=== PATIENT | female | born 1990 | race Caucasian/White ===

== ENCOUNTER 2024-08-18 19:05 | Emergency (ER) | payer OTHER, BC, SELFPAY ==
[2024-08-18 19:13] VITALS: BP 124/81; PULSE 95; RESP 16; TEMP 36.7; O2SAT 100; BMI 26.3
[2024-08-18 19:21] VITALS: BP 134/83; PULSE 95; RESP 20; O2SAT 97
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
[2024-08-18 20:06] VITALS: BP 118/74; PULSE 90; RESP 20; TEMP 36.7; O2SAT 97
[2024-08-18 20:07] VITALS: BP 118/74; PULSE 90; RESP 20; TEMP 36.7
[2024-08-18 20:11] VITALS: O2SAT 97
--- OUTSIDE RECORDS SUMMARY | 2024-08-18 20:26 | XMS_ITS | Encounter Summary ---
Author Organization [place] Address [address] [facility] [place] [address] Care Team Providers Care Wet And Dry Sugar Bin Operator Name Role Phone [facility], [facility] Primary Care Provider Shamar Pacheco MD Unavailable Kellen Duran RD Unavailable [phone] Unavailable Unavailable Fiona Conrad Unavailable Clinic - [facility] Unavailable Atif Garcia MD Unavailable [phone] Dina Perez PA-C Unavailable Tiffani Farmer MD Unavailable [phone] Cydney Olivarez Unavailable [phone] Reason for Visit * Reason Onset Date Comments Diabetes Mellitus 04/02/2023 Encounter Details Date Type Department Care Team (Late st Contact Info) Description 04/02/2023 MyC Medical Advice [facility] Diabetes Education [address] [place] [address] Fiona Conrad [address] [place] [address] Diabetes Mellitus Social History Tobacco Use Types Packs/Day Years Used Date Smoking Tobacco: Never Smokeless Tobacco: Never Alcohol Use Standard Drinks/Week Comments Not Currently 0 (1 standard drink = 0.6 oz pur e alcohol) PHQ-2 Answer Date Recorded PHQ-2 Score 0 10/01/2022 Adolescent Education Answer Date Record ed Getting School Help Needed Not on file 03/16 Education Answer Date Recorded What is the highest level of school you have completed or the highest degree you have received? 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 No / Unsure 04/02/2023 3:41 PM CDT documented as of this encounter Miscellaneous Notes * Telephone Encounter - Kellen Duran RD - 04/02/2023 3:45 PM CDT Images from the original note were not included. Gestational Diabetes Follow-up Subjective/Objective: Holly Oliva sent in blood glucose log for review. Last date of communication was: 03/27. Gestational diabetes is being managed with diet, activity, and medications Taking diabetes medications: yes: Diabetes Medication(s) Biguanides metFORMIN (GLUCOPHAGE) 500 MG tablet Take 1 tablet (500 mg) by mouth 2 times daily (with meals) metFORMIN (GLUCOPHAGE) 500 MG tablet Take 500 mg by mouth twice daily (breakfast and dinner) Insulin insulin aspart (NOVOLOG FLEXPEN) 100 UNIT/ML pen Inject 9 Units Subcutaneous 3 times daily (with meals) Dose increase for next refill. insulin detemir (LEVEMIR PEN) 100 UNIT/ML pen Inject 26 Units Subcutaneous At Bedtime Dose increase for next fill. Estimated Date of Delivery: May 01, 2023 BG/Food Log: Assessment: BG above goals needs insulin adjustments. Fasting blood glucoses: 33% in target. After breakfast: 0% in target. After lunch: 0% in target-only 2 recorded After dinner: 20% in target. Plan/Response: Recommend increase to insulin - -Levemir: 0-0-0-26 ---> 0-0-0-29 -Novolo-9-9-0 ---> 11-11-11-0- will request MD approval for this since 20% dose increase Follow-up in [address], LD, CDCES Any diabetes medication dose changes were made via the CDE Protocol and Collaborative Practice Agreement with the patient's TACKER [employer] provider. A copy of this encounter was shared with the provider. documented in this encounter Plan of Treatment Upcoming Encounters Date Type Department Care Team (Late st Contact Info) Description 08/21/2024 10:00 AM PRE ASSEMBLY WIRER Virtual Visit [facility] Diabetes Education [address] [phone] Flor Joseph [address] [place] [phone] 09/08/2024 2:[address] [facility] Maternal Medicine [facility] [address] [place] [phone] Kenya Keating MD [address] [place], [place] [phone] 09/08/2024 2:45 PM CDT Office Visit [facility] [address] [place] [phone] Kenya Keating MD [address] [place], [place] [phone] 09/16/2024 3:30 PM CDT Office Visit [facility] [place] [address] [place] [address] [place] [phone] Shamar Pacheco MD [address] [place] [address] 09/17/2024 2:30 PM CDT Virtual Visit [facility] Endocr[facility]ology [facility] [address] [phone] Renée Alanis PA-C [address] [place] [address] 09/22/2024 2:00 PM CDT Appointment [facility] [address] [place] [phone] Kenya Keating MD [address] [place] [address] [address] [place] [address] 10/13/2024 3:30 PM CDT Office Visit [address] [phone] Shamar Pacheco MD [address] [place] [address] 10/16/2024 2:30 PM CDT Virtual Visit [facility] [address] [phone] Renée Alanis PA-C [address] [place] [address] 11/10/2024 3:45 PM CDT Office Visit [address] [phone] Shamar Pacheco MD [address] [place] [address] 11/19/2024 2:30 PM CDT Virtual Visit [facility] [address] [phone] Renée Alanis PA-C [address] [facility] [address] [place] [address] 12/17/2024 2:30 PM CDT Virtual Visit [facility] [address] [phone] Renée Alanis PA-C [address] [facility] [address] [place] [address] 01/07/2025 1:30 PM CDT Virtual Visit [facility] Endocrinology [address] [phone] Renée Alanis PA-C [address] [place] [address] 01/11/2025 7:30 AM CDT Hospital Encounter [facility] [address] [place] [address] Shamar Pacheco MD [address] [place] [address] Modified White class B pregestational diabetes mellitus (Primary Dx); Multigravida of advanced maternal age in first trimester; Previous delivery, antepartum condition or complication 01/11/2025 7:30 AM CDT - 01/11/2025 9:00 AM CDT Surgery [facility] [address] [place] [address] Shamar Pacheco MD [address] [place] [address] REPEAT SECTION Scheduled Procedures Name Priority Associated Diagnoses Date/Ti me SECTION Modified White class B pregestational diabetes mellitus Multigravida of advanced maternal age in first trimester Previous delivery, antepartum condition or complication 01/11/2025 7:30 AM CDT documented as of this encounter Visit Diagnoses Diagnosis Type 2 diabetes mellitus without complication, without long-term current use of insulin (H) Supervision of high risk in second trimester Unspecified high-risk Modified White class B pregestational diabetes mellitus- Primary Multigravida of advanced maternal age in first trimester Previous delivery, antepartum condition or complication Multigravida of advanced maternal age in first trimester- Primary Modified White class B pregestational diabetes mellitus Previous delivery, antepartum condition or complication AMA (advanced maternal age) multigravida 35+ Elderly multigravida with antepartum condition or complication Multigravida of advanced maternal age in first trimester- Primary Modified White class B pregestational diabetes mellitus Previous delivery, antepartum condition or complication Multigravida of advanced maternal age in first trimester- Primary Modified White class B pregestational diabetes mellitus Previous delivery, antepartum condition or complication Multigravida of advanced maternal age in first trimester- Primary Modified White class B pregestational diabetes mellitus Previous delivery, antepartum condition or complication Modified White class B pregestational diabetes mellitus Multigravida of advanced maternal age in first trimester Previous delivery, antepartum condition or complication documented in this encounter Additional Health Concerns Assessment Noted Time PHQ-9 Depression Total Score: 0 02/28/20 22 2:15 PM CDT documented as of this encounter Care Teams Wet And Dry Sugar Bin Operator Relationship Specialty Start Date End Date [facility], [address] [address] PCP - General 03/22/17 Shamar Pacheco MD [address] [place] [address] Assigned OBGYN Provider 10/09/[address] [address] Endless Bed Drum Sander Dietitian, Registered 10/16/[address] [facility] [address] [place] [address] Endless Bed Drum Sander Dietitian, Registered 11/02/21 Fiona Conrad [address] [place] [address] Endless Bed Drum Sander Dietitian, Registered 01/23/23 [facility] [address] [place] [address] Assigned PCP 07/18/23 03/15/24 Atif Garcia MD [address] [facility] [address] [place] [address] crime prevention police officer 05/01/24 Dina Perez PA-C [address] [place], [place] [address] Physician Hammer Heater Endocrinology, Diabetes, and Metabolism 06/02/24 Tiffani Farmer MD 420 [facility] [address] [place], [place] [address] Assigned Endocrinology Provider 06/15/24 Cydney Olivarez CHW Community Health Worker 08/13/2408/14 documented as of this encounter
--- OUTSIDE RECORDS SUMMARY | 2024-08-18 20:27 | XMS_ITS | Encounter Summary ---
Author Organization [place] Address [address] [facility] [place] [address] Care Team Providers Care Iron Worker Name Role Phone [facility] Primary Care Provider Shamar Pacheco MD Unavailable Kellen Duran RD Unavailable [phone] Unavailable Unavailable Fiona Conrad Unavailable [facility] Unavailable Atif Garcia MD Unavailable [phone] Dina Perez PA-C Unavailable Tiffani Farmer MD Unavailable [phone] Cydney Olivarez Unavailable [phone] Encounter Details Date Type Department Care Team (Late st Contact Info) Description 09/28/2022 MyC Medical Advice [facility] [address] [place] [address] Verenice Yen, RN Social History Tobacco Use Types Packs/Day Years Used Date Smoking Tobacco: Never Smokeless Tobacco: Never Alcohol Use Standard Drinks/Week Comments Not Currently 0 (1 standard drink = 0.6 oz pur e alcohol) PHQ-2 Answer Date Recorded PHQ-2 Score 0 10/01/2022 Education Answer Date Recorded What is the highest level of school you have completed or the highest degree you have received? Some college, no degree 05/30/2021 Comments Yes Sex and Gender Information Value Date Recorded Sex Assigned at Not on file Legal Sex Female 3:17 AM HOME AID Gender Identity Not on file Sexual Orientation [...] suspected to have Coronavirus/COVID-19? No / Unsure 09/17/2022 10:12 AM CDT documented as of this encounter Plan of Treatment Upcoming Encounters Date Type Department Care Team (Late st Contact Info) Description 08/21/2024 10:00 AM HOME AID Virtual Visit [facility] Diabetes Education [address] [place] [phone] Flor Joseph [address] [place] [address] 09/08/2024 2:15 PM CDT Appointment [facility] [place] [address] [place] [phone] Kenya Keating MD [address] [place] [address] [place] [address] 09/08/2024 2:45 PM CDT Office Visit [facility] [place] [address] [place] [phone] Kenya Keating MD [address] [place], [place] [address] 09/16/2024 3:30 PM CDT Office Visit [facility] [place] [address] [place] [phone] Shamar Pacheco MD [address] [place] [address] 09/17/2024 2:30 PM CDT Virtual Visit [facility] End[facility]ology [facility] [place] [address] [phone] Renée Alanis PA-C [address] [place] [address] 09/22/2024 2:00 PM CDT Appointment [facility] [address] [place] [phone] Kenya Keating MD [address] [place] [address] [address] [place] [address] 10/13/2024 3:30 PM CDT Office Visit [address] [phone] Shamar Pacheco MD [address] [place] [address] 10/16/2024 2:30 PM CDT Virtual Visit [facility] Endocrinology [address] [phone] Renée Alanis PA-C [address] [place] [address] 11/10/2024 3:45 PM CDT Office Visit [address] [phone] Shamar Pacheco MD [address] [place] [address] 11/19/2024 2:30 PM CDT Virtual Visit [facility] [address] [place] [phone] Renée Alanis PA-C 420 [facility] [address] [place] [address] 12/17/2024 2:30 PM CDT Virtual Visit [facility] [place] [address] [place] [address] [address] [place] [phone] Renée Alanis PA-C 420 [facility] [address] [place] [address] 01/07/2025 1:30 PM CDT Virtual Visit [facility] [address] [phone] Renée Alanis PA-C [address] [address] 01/11/2025 7:30 AM CDT Hospital Encounter [facility] [address] [place] [address] Shamar Pacheco MD [address] [place] [address] Modified White class B pregestational diabetes mellitus (Primary Dx); Multigravida of advanced maternal age in first trimester; Previous delivery, antepartum condition or complication 01/11/2025 7:30 AM CDT - 01/11/2025 9:00 AM CDT Surgery [facility] [address] [place] [address] Shamar Pacheco MD [address] [place] [address] REPEAT SECTION Scheduled Procedures Name Priority Associated Diagnoses Date/Ti me SECTION Modified White class B pregestational diabetes mellitus Multigravida of advanced maternal age in first trimester Previous delivery, antepartum condition or complication 01/11/2025 7:30 AM CDT documented as of this encounter Visit Diagnoses Not on filedocumented in this encounter Additional Health Concerns Assessment Noted Time PHQ-9 Depression Total Score: 0 02/28/20 2:15 PM CDT documented as of this encounter Care Teams Iron Worker Relationship Specialty Start Date End Date [facility] [address] [place] [address] PCP - General 03/22/17 Shamar Pacheco MD [address] [place] [address] Assigned OBGYN Provider 10/09/[address] [address] Census Taker Dietitian, Registered 10/16/[address] [address] Census Taker Dietitian, Registered 11/02/21 Fiona Conrad [address] [place] [address] Census Taker Dietitian, Registered 01/23/23 [facility] [address] [address] Assigned PCP 07/18/23 03/15/24 Atif Garcia MD [address] [address] fine arts instructor 05/01/24 Dina Perez PA-C [address] [place] [address] Physician Community Outreach Worker Endocrinology, Diabetes, and Metabolism 06/02/24 Tiffani Farmer MD [address] [place] [address] [address] [place] [address] Assigned Endocrinology Provider 06/15/24 Cydney Olivarez CHW Community Health Worker 08/13/2408/14 documented as of this encounter
--- OUTSIDE RECORDS SUMMARY | 2024-08-18 20:27 | XMS_ITS | Clinical Summary ---
Author Organization [employer] Address [facility] [place] [address] Care Team Providers Care Creative Producer Name Role Phone Danilo Joseph DO Primary Care Provider [phone] Allergies Active Allergy Reactions Criticality Noted Date Comments Venom-Honey Bee Angioedema 06/10/2014 Medications diabetic supplies, miscellan.Indic ations:Diet-con trolled type 2 diabetes mellitus (HC) Dispense glucose meter, test strips and lancets covered by patient insurance. Test 3 times per day. 1 Kit 04/08/2017 Active metFORMIN (GLUCOPHAGE) 500 mg tabletIndicatio ns:Controlled type 2 diabetes mellitus without complication, without long-term current use of insulin (HC) Take 1 Tablet (500 mg) by mouth 2 times daily with meals. 180 tablet. 1 08/17/2021 Active lancetsIndicati ons:Type 2 diabetes mellitus without complication, without long-term current use of insulin (HC) Use as directed 100 Each 5 08/17/2021 Active blood sugar diagnostic (OneTouch Verio test strips) stripIndication s:Type 2 diabetes mellitus without complication, without long-term current use of insulin (HC) As directed. 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 Age 28. Plan: routine screening, next Pap due 07/2022 Immunizations Name Administration Dates Next Due DT (Age < 7 years) 01/25/2003 HPV 9 (Gardasil 9) 08/27/2016,01/11/2016, 016 Hepatitis B (Peds) 02/15/2004,03/30/2003, 003 MMR 01/25/2003 Tdap 08/17/2019,01/22/2009 Family History Medical History Relation Name Comments Good Health Father Asthma Maternal Grandmother Diabetes Maternal Grandmother Heart Disease Maternal Grandmother quadru ple bypass Other Maternal Grandmother emphyse ma Psychiatric illness Maternal Grandmother depression Stroke Maternal Grandmother multipl e Good Health Mother Relation Name Status Comments Father Maternal Grandmother Mother Social History Tobacco Use Types Packs/Day Years Used Date Smoking Tobacco: Never Smokeless Tobacco: Never Alcohol Use Standard Drinks/Week Comments Yes 0 (1 standard drink = 0.6 oz pur e alcohol) 3-4 times a month PHQ-2 Answer Date Recorded PHQ-2 Score 0 08/17/2019 Social Connections Answer Date Recorded Frequency of Communication with Friends and Fami ly Not on file 06/14/2021 Financial Resource Strain Answer Date R ecorded Difficulty of Paying Living Expenses Not on file 06/14/2021 Difficulty of Paying Living Expenses Not on file 06/14/2021 Comments No Sex and Gender Information Value Date Recorded Sex Assigned at Not on file Legal Sex Female 8:28 AM TROPHY ASSEMBLER Gender Identity Not on file Sexual Orientation Not on file 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 Not on file Not on file Obstetrics History Para Term AB IAB SAB Ectopic Multiple Livin g Live Births 1 0 0 0 0 0 0 0 Date Outcome GA Total Labor Labor/2nd/3rd Weight Sex Type Anes PTL Krysten A1 A5 Name Clin Last Filed Vital Signs Vital Sign Reading Time Taken Comments Blood Pressure 104/70 12/06/2020 12:24 PM CDT Pulse 92 12/06/2020 12:24 PM CDT Temperature 36 C (96.8 F) 03/22/2017 11:06 AM CDT Respiratory Rate 12 12/14/2015 4:37 PM CDT Oxygen Saturation 100% 12/14/2015 4:37 PM CDT Inhaled Oxygen Concentration - - Weight 80.7 kg (178 lb) 12/06/2020 12:24 PM CDT Height 175.3 cm (5' 9) 07/05/2020 4:17 PM TROPHY ASSEMBLER Body Mass Index 26.29 07/05/2020 4:17 PM TROPHY ASSEMBLER Plan of Treatment Health Maintenance Due Date Last Done Comments HIV for age 15-65 2004 Hepatitis C screening for age 18-79 10/27/2007 Depression screening for age 12+ 08/18/2020 08/18/2019, 08/18/2019, 08/17/2019, Additional history exists BMI (ht and wt on same day) for age 18+ 07/05/2021 07/05/2020, 08/17/2019, 04/01/2018, Additional history exists Pap test for age 21-65 08/17/2022 , 08/17/2019, 08/27/2016, Additional history exists COVID-19 vaccine series (2023- season) 2024 Influenza for age 9-49 02/23/2024 Tetanus booster 08/17/2029 08/17/2019, 08/0 06/2008, 01/22/2009 Tdap Completed 08/17/2019, 01/22/2009 Pneumococcal series for age 6-49 Aged Out No longer eligible based on patient's age to complete this topic Procedures Procedure Name Priority Date/Time Associated Diagnosis Comments SUPERVISOR RUBBER COVERING THIN PREP PAP SCREEN IMAGED Routine 08/17/2019 10:45 AM TROPHY ASSEMBLER Pap smear for cervical cancer screening from Last 3 Months or Most Recently Relevant to Health Maintenance Results * SUPERVISOR RUBBER COVERING THIN PREP PAP SCREEN IMAGED (08/17/2019 10:45 AM TROPHY ASSEMBLER) Case Report Gynecologic Cytology Report Case: [id number] Authorizing Provider: Meche Herrera CNM Collected: 08/17/2019 1045 Ordering Location: [facility] Received: 08/17/2019 1132 Clinic First Screen: Jesika Resendiz Rescreen: Teresa Sheth Specimen: SUPERVISOR RUBBER COVERING ThinPrep Vial Screening, Cervical 08/26/2019 7:56 AM TROPHY ASSEMBLER [facility] INTERPRETATION/ RESULT NEGATIVE FOR INTRAEPITHELIAL LESION OR MALIGNANCY (NIL) (none) 08/26/2019 7:56 AM TROPHY ASSEMBLER [facility] NISM(S) Shift in sheila suggestive of bacterial vaginosis 08/26/2019 7:56 AM TROPHY ASSEMBLER [facility] SPECIMEN ADEQUACY Satisfactory for evaluation Endocervical component present 08/26/2019 7:56 AM TROPHY ASSEMBLER [facility] HPV REQUEST HPV if ASCUS 08/26/2019 7:56 AM TROPHY ASSEMBLER [facility] Date of LMP 07/28/2019 08/26/2019 7:56 AM TROPHY ASSEMBLER [facility] Last Pap Date 08/27/16 08/26/2019 7:56 AM TROPHY ASSEMBLER [facility] Last Pap Result ASCUS 0 7:56 AM TROPHY ASSEMBLER [facility] Abnormal Pap or [place] Bx in last 5 years No 08/26/2019 7:56 AM TROPHY ASSEMBLER [facility] Menstrual Status Regular Periods 08/26/2019 7:56 AM TROPHY ASSEMBLER [facility] [place] Bx Done Today No 08/26/2019 7:56 AM TROPHY ASSEMBLER [facility] ENTRAL LABORATORY Additional Information None given 08/26/2019 7:56 AM TROPHY ASSEMBLER [facility] Comment: Cytology is screened at [facility] [employer], Central Laboratory - [address], [place] [address] and [facility] - [address], [place] [address] and [facility] - [address] [place] [address] Interpreted at [facility] [employer], Central Laboratory - [address], [place] [address] Automated Review Successful 08/26/2019 7:56 AM TROPHY ASSEMBLER [facility] Comment:Specimen processed s uccessfully by automated project superintendent device, ThinPrep Imaging System, [employer] Note The pap test is a screening technique, not a diagnostic procedure. It is used primarily to screen for squamous cancers and precursor lesions. Published studies have shown that it is subject to both false negative and false positive results. The pap test should not be used as the sole means to diagnose or exclude pre-malignant and malignant lesions. 08/26/2019 7:56 AM TROPHY ASSEMBLER [facility] Other (Cervical) Non-Blood / Unknown 08/17/2019 10:45 AM TROPHY ASSEMBLER 08/17/2019 11:32 AM TROPHY ASSEMBLER Meche Herrera CN PATHOLOGY/CYTOLOGY Final Resu lt [facility]-CENTRAL LABORATORY [address] [place] [address], from Last 3 Months or Most Recently Relevant to Health Maintenance Insurance [facility] NON-NH-[facility] [place] [address] Care Teams Creative Producer Relationship Specialty Start Date End Date Danilo Joseph DO PCP - General Family Practice 04/22/20
--- OUTSIDE RECORDS SUMMARY | 2024-08-18 20:27 | XMS_ITS | Encounter Summary ---
Author Organization [place] Address [address] [place] [address] Care Team Providers Care Purification Operator Helper Name Role Phone [facility], [facility] Primary Care Provider Shamar Pacheco MD Unavailable Kellen Duran RD Unavailable [phone] Unavailable Unavailable Fiona Conrad Unavailable [phone] [facility] - [facility] Unavailable Atif Garcia MD Unavailable [phone] Dina Perez PA-C Unavailable Tiffani Farmer MD Unavailable [phone] Cydney Olivarez Unavailable [phone] Encounter Details Date Type Department Care Team (Late st Contact Info) Description 09/06/2022 MyC Medical Advice [facility]'s [facility] [address] [place] [address] Shamar Pacheco MD [address] [place] [address] Social History Tobacco Use Types Packs/Day Years Used Date Smoking Tobacco: Never Smokeless Tobacco: Never Alcohol Use Standard Drinks/Week Comments Not Currently 0 (1 standard drink = 0.6 oz pur e alcohol) PHQ-2 Answer Date Recorded PHQ-2 Score 0 02/27/2022 Education Answer Date Recorded What is the highest level of school you have completed or the highest degree you have received? Some college, no degree 05/30/2021 Comments No Sex and Gender Information Value Date Recorded Sex Assigned at Not on file Legal Sex Female 3:17 AM GROUND SCHOOL INSTRUCTOR Gender Identity Not on file Sexual Orientation [...] suspected to have Coronavirus/COVID-19? No / Unsure 09/07/2022 2:43 PM CDT documented as of this encounter Plan of Treatment Upcoming Encounters Date Type Department Care Team (Late st Contact Info) Description 08/21/2024 10:00 AM GROUND SCHOOL INSTRUCTOR Virtual Visit [facility] Diabetes Education [address] [place] [address] Flor Joseph [address] [place] [address] 09/08/2024 2:15 PM CDT Appointment [facility] [address] [facility] [address] [place] [phone] Kenya Keating MD [address] [address] [address] 09/08/2024 2:45 PM CDT Office Visit [facility] [address] [facility] [address] [place] [phone] Kenya Keating MD [address] [place] [address] [place] [address]66344 09/16/2024 3:30 PM CDT [facility] [address] [place] [address] [place] [phone] Shamar Pacheco MD [address] [place] [address] 09/17/2024 2:30 PM CDT Virtual Visit [facility] Endocrinology [address] [place] [phone] Renée Alanis PA-C [address] [place] [address] 09/22/2024 2:00 PM CDT Appointment [facility] Children[facility] Heart Care [address] [place] [phone] Kenya Keating MD [address] [place] [address] [phone] 10/13/2024 3:30 PM CDT Office Visit [facility] [address] [place] [address] [phone] Shamar Pacheco MD [address] [place] [address] 10/16/2024 2:30 PM CDT Virtual Visit [facility] Endocrinology [address] [phone] Renée Alanis PA-C [address] [place] [address] 11/10/2024 3:45 PM CDT Office Visit [facility] [address] [place] [address] [place] [phone] Shamar Pacheco MD [address] [facility] [place] [address] 11/19/2024 2:30 PM CDT Virtual Visit [facility] End[facility]inology Clinic [address] [phone] Renée Alanis PA-C [address] [address] 12/17/2024 2:30 PM CDT Virtual Visit [facility] Endocrinology [address] [phone] Renée Alanis PA-C [address] [address] 01/07/2025 1:30 PM CDT Virtual Visit [facility] Endocrinology [address] [phone] Renée Alanis PA-C [address] [address] 01/11/2025 7:30 AM CDT Hospital Encounter [facility] [address] [place] [phone] Shamar Pacheco MD [address] [place] [address] Modified White class B pregestational diabetes mellitus (Primary Dx); Multigravida of advanced maternal age in first trimester; Previous delivery, antepartum condition or complication 01/11/2025 7:30 AM CDT - 01/11/2025 9:00 AM CDT Surgery [facility] [address] [place] [phone] Shamar Pacheco MD [address] [place] [address] REPEAT SECTION Scheduled Procedures Name Priority Associated [...] documented as of this encounter Care Teams Purification Operator Helper Relationship Specialty Start Date End Date [facility], [address] [place] [address] [address] PCP - General 03/22/17 Shamar Pacheco MD [address] [place] [address] Assigned OBGYN Provider 10/09/[address] [address] Medication Specialist Dietitian, Registered 10/16/[address] [address] Medication Specialist Dietitian, Registered 11/02/21 Fiona Conrad [address] [place] [address] Medication Specialist Dietitian, Registered 01/23/23 Clinic - [facility] Garrido [address] [address] Assigned PCP 07/18/23 03/15/24 Atif Garcia MD [address] [facility] [address] [place] [address] art supervisor 05/01/24 Dina Perez PA-C [address] [place], [place] [phone] Physician Truck Spotter Endocrinology, Diabetes, and Metabolism 06/02/24 Tiffani Farmer MD [address] [facility] [address] [place] [address] Assigned Endocrinology Provider 06/15/24 Cydney Olivarez CHW Community Health Worker 08/13/2408/14 documented as of this encounter
--- OUTSIDE RECORDS SUMMARY | 2024-08-18 20:27 | XMS_ITS | Encounter Summary ---
Author Organization [place] Address [address] [facility] [place] [address] Care Team Providers Care Conference Services Manager Name Role Phone [facility] Primary Care Provider Shamar Pacheco MD Unavailable [phone] Unavailable Unavailab Kellen Ca RD Unavailable [phone] Unavailable Unavailable Fiona Conrad Unavailable [facility] Unavailable Atif Garcia MD Unavailable [phone] Dina Perez PA-C Unavailable Tiffani Farmer MD Unavailable [phone] Cydney Olivarez Unavailable [phone] Encounter Details Date Type Department Care Team (Late st Contact Info) Description 05/20/2021 MyC Medical Advice [facility] Women's [facility] [address] [place] [address] Shamar Pacheco MD [address] [place] [address] Early stage of (Primary Dx) Social History Tobacco Use Types Packs/Day Years Used Date Smoking Tobacco: Never Smokeless Tobacco: Never Alcohol Use Standard Drinks/Week Comments Yes 0 (1 standard drink = 0.6 oz pur e alcohol) Comments No Sex and Gender Information Value Date Recorded Sex Assigned at Not on file Legal Sex Female 3:17 AM MANAGER GROUP Gender Identity Not on file Sexual Orientation Not on file 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 No / Unsure 05/23/2021 1:34 PM MANAGER GROUP documented as of this encounter Plan of Treatment Upcoming Encounters Date Type Department Care Team (Late st Contact Info) Description 08/21/2024 10:00 AM MANAGER GROUP Virtual Visit [facility] Diabetes Education [address] [place] [address] Flor Joseph [address] [place] [address] 09/08/2024 2:15 PM CDT Appointment [facility] [place] [address] [place] [phone] Kenya Keating MD [address] [place], [place] [phone] 09/08/2024 2:45 PM CDT Office Visit [facility] [place] [address] [place] [phone] Kenya Keating MD [address] [place] [address] [place], [place] [phone] 09/16/2024 3:30 PM CDT Office Visit [facility] [place] [address] [place] [phone] Shamar Pacheco MD [address] [place] [address] 09/17/2024 2:30 PM CDT Virtual Visit [facility] Endocrinology Clinic [address] [place] [phone] Renée Alanis PA-C [address] [place] [address] [place] [address] 09/22/2024 2:00 PM CDT Appointment [facility] Heart Care [address] [place] [phone] Kenya Keating MD [address] [place] [address] [address] [place] [address] 10/13/2024 3:30 PM CDT Office Visit [address] [phone] Shamar Pacheco MD [address] [place] [address] 10/16/2024 2:30 PM CDT Virtual Visit [facility] Endocrinology [address] [phone] Renée Alanis PA-C [address] [place] [address] 11/10/2024 3:45 PM CDT Office Visit [facility] [address] [facility] [address] [place] [phone] Shamar Pacheco MD [address] [place] [address] 11/19/2024 2:30 PM CDT Virtual Visit [facility] Endocrinology Clinic [address] [phone] Renée Alanis PA-C [address] [address] 12/17/2024 2:30 PM CDT Virtual Visit [facility] Endocrinology Clinic [address] [place] [phone] Renée Alanis PA-C [address] [address] 01/07/2025 1:30 PM CDT Virtual Visit [facility] Endocrinology [address] [phone] Renée Alanis PA-C [address] [address] 01/11/2025 7:30 AM CDT Hospital Encounter [facility] [address] [place] [address] Shamar Pacheco MD [address] [place] [address] Modified White class B pregestational diabetes mellitus (Primary Dx); Multigravida of advanced maternal age in first trimester; Previous delivery, antepartum condition or complication 01/11/2025 7:30 AM CDT - 01/11/2025 9:00 AM CDT Surgery [facility] [address] [place] [address] Shamar Pacheco MD [address] [place] [address] REPEAT SECTION Scheduled Procedures Name Priority Associated Diagnoses Date/Ti me SECTION Modified White class B pregestational diabetes mellitus Multigravida of advanced maternal age in first trimester Previous delivery, antepartum condition or complication 01/11/2025 7:30 AM CDT documented as of this encounter Results * (ABNORMAL) HCG quantitative (05/23/2021 1:38 PM MANAGER GROUP) hCG Quantitative 11,371(H) 0 - 5 IU/L 05/24/2021 1:32 PM MANAGER GROUP OX LABORATORY Comment: Adult: 0-5 IU/L for healthy non- person Neonates: Should be within normal ranges by 2 days after Blood STRUCTURE OF RIGHT UPPER LIMB / Unknown Venipuncture / Unknown 05/23/2021 1:38 PM MANAGER GROUP 05/23/2021 1:38 PM MANAGER GROUP us Shamar Pacheco MD LAB - BLOOD ORDERABLES Final Result [facility] [address] Lab (no room number, 1st floor of clinic) [place] [address], [facility] [phone] documented in this encounter Visit Diagnoses Diagnosis Early stage of - Primary Modified White class B pregestational diabetes mellitus- [...] condition or complication documented in this encounter Care Teams Conference Services Manager Relationship Specialty Start Date End Date [facility], [address] [place] [address] [place] [address] PCP - General 03/22/17 Shamar Pacheco MD [address] [place] [address] Assigned OBGYN Provider 10/09/[address] [facility] [place] [address] Automotive Welder Dietitian, Registered 10/16/21 11/01/[address] [address] Automotive Welder Dietitian, Registered 10/16/[address] [address] Automotive Welder Dietitian, Registered 11/02/21 Fiona Conrad [address] [place] [address] Automotive Welder Dietitian, Registered 01/23/23 [facility] [address] [address] Assigned PCP 07/18/23 03/15/24 Atif Garcia MD [address] [address] soil surveyor 05/01/24 Dina Perez PA-C [address] [place] [address] Physician Canvassing Manager Endocrinology, Diabetes, and Metabolism 06/02/24 Tiffani Farmer MD [address] [place] [address] Assigned Endocrinology Provider 06/15/24 Cydney Olivarez, [facility] Community Health Worker 08/13/2408/14 documented as of this encounter
--- OUTSIDE RECORDS SUMMARY | 2024-08-18 20:27 | XMS_ITS | Encounter Summary ---
Author Organization [place] Address [facility]0 [facility] [place] [address] Care Team Providers Care Mortgage Lender Name Role Phone [facility], [facility] Primary Care Provider Shamar Pacheco MD Unavailable [phone] Unavailable Unavailab Kellen Ca RD Unavailable [phone] Unavailable Unavailable Fiona Conrad Unavailable [phone] [facility], [facility] Unavailable Atif Garcia MD Unavailable [phone] Dina Perez PA-C Unavailable Tiffani Farmer MD Unavailable [phone] Cydney Olivarez Unavailable [phone] Encounter Details Date Type Department Care Team (Late st Contact Info) Description 05/29/2021 MyC Medical Advice [facility] [address] [facility] [address] [place] [address] Meche Bryant, RN Social History Tobacco Use Types Packs/Day Years Used Date Smoking Tobacco: Never Smokeless Tobacco: Never Alcohol Use Standard Drinks/Week Comments Yes 0 (1 standard drink = 0.6 oz pur e alcohol) PHQ-2 Answer Date Recorded PHQ-2 Score 0 05/30/2021 Comments No Sex and Gender Information Value Date Recorded Sex Assigned at Not on file Legal Sex Female 3:17 AM LAW ENFORCEMENT OFFICER Gender Identity Not on file Sexual Orientation Not on file 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 No / Unsure 05/23/2021 1:34 PM LAW ENFORCEMENT OFFICER documented as of this encounter Plan of Treatment Upcoming Encounters Date Type Department Care Team (Late st Contact Info) Description 08/21/2024 10:00 AM LAW ENFORCEMENT OFFICER Virtual Visit [facility] Diabetes Education [address] [place] [phone] Flor Joseph [address] [place] [address] 09/08/2024 2:[address] [facility] Maternal Medicine [facility] [place] [address] [place] [phone] Kenya Keating MD [address] [place] [address] [place], [place] [phone] 09/08/2024 2:45 PM CDT Office Visit [facility] [place] [address] [place] [phone] Kenya Keating MD [address] [place], [place] [phone] 09/16/2024 3:30 PM CDT Office Visit [facility] Women's Clinic [place] [address] [place] [address] [place] [phone] Shamar Pacheco MD [address] [place] [address] 09/17/2024 2:30 PM CDT Virtual Visit [facility] Endocrinology Clinic [place] [address] [facility] 3rd [place] [phone] Renée Alanis PA-C [address] [place] [address] 803 [place] [address] 09/22/2024 2:00 PM CDT Appointment [facility] Heart Care [address]50 [place] [phone] Kenya Keating MD 606 [address] [address] [place] [address] [place], [place] [address] 10/13/2024 3:30 PM CDT Office Visit [address] [phone] Shamar Pacheco MD [address] [place] [address] 10/16/2024 2:30 PM CDT Virtual Visit [facility] Endocrinology Clinic [address] [phone] Renée Alanis PA-C [address] [place] [address] 803 [place] [address] 11/10/2024 3:45 PM CDT Office Visit [facility] [address] [phone] Shamar Pacheco MD [address] [place] [address] 11/19/2024 2:30 PM CDT Virtual Visit [facility] Endocrinology Clinic [address] [phone] Renée Alanis PA-C 420 [facility] 803 [place] [address] 12/17/2024 2:30 PM CDT Virtual Visit [facility] Endocrinology Clinic [address] 3rd [place] [phone] Renée Alanis PA-C 420 [facility] 803 [place] [address] 01/07/2025 1:30 PM CDT Virtual Visit [facility] Endocrinology Clinic [address] 3rd [place] [phone] Renée Alanis PA-C 420 [facility] [address] [place] [address] 01/11/2025 7:30 AM CDT Hospital Encounter [facility] [address] [place] [address] Shamar Pacheco MD [address] [place] [address] Modified White class B pregestational diabetes mellitus (Primary Dx); Multigravida of advanced maternal age in first trimester; Previous delivery, antepartum condition or complication 01/11/2025 7:30 AM CDT - 01/11/2025 9:00 AM CDT Surgery [facility] [address] [place] [phone] Shamar Pacheco MD [address] [place] [address] REPEAT SECTION Scheduled Procedures Name Priority Associated Diagnoses Date/Ti me SECTION Modified White class B pregestational diabetes mellitus Multigravida of advanced maternal age in first trimester Previous delivery, antepartum condition or complication 01/11/2025 7:30 AM CDT documented as of this encounter Visit Diagnoses Not on filedocumented in this encounter Additional Health Concerns Assessment Noted Time PHQ-9 Depression Total Score: 0 05/31/20 7:03 AM LAW ENFORCEMENT OFFICER documented as of this encounter Care Teams Mortgage Lender Relationship Specialty Start Date End Date [facility], [facility] [address] [place] [address] PCP - General 03/22/17 Shamar Pacheco MD [address] [place] [address] Assigned OBGYN Provider 10/09/[address] [place] [address] Bead Preparer Dietitian, Registered 10/16/21 11/01/[address] [address] Bead Preparer Dietitian, Registered 10/16/[address] [address] Bead Preparer Dietitian, Registered 11/02/21 Fiona Conrad [address] [place] [address] Bead Preparer Dietitian, Registered 01/23/23 [facility] [address] [address] Assigned PCP 07/18/23 03/15/24 Atif Garcia MD [address] [address] solderer production line 05/01/24 Dina Perez PA-C [address] [place] [address] Physician Broth Mixer Endocrinology, Diabetes, and Metabolism 06/02/24 Tiffani Farmer MD [address] [place] [address]11[address] Assigned Endocrinology Provider 06/15/24 Cydney Olivarez, TAO Community Health Worker 08/13/2408/14 documented as of this encounter
--- OUTSIDE RECORDS SUMMARY | 2024-08-18 20:27 | XMS_ITS | Encounter Summary ---
Author Organization [place] Address [facility] [place] [address] Care Team Providers Care Equipment Operation Instructor Name Role Phone Clinic, [facility] Primary Care Provider Shamar Pacheco MD Unavailable Kellen Duran RD Unavailable [phone] Unavailable Unavailable Fiona Conrad Unavailable [phone] Atif Garcia MD Unavailable [phone] Dina Perez PA-C Unavailable Tiffani Farmer MD Unavailable [phone] Cydney Olivarez Unavailable [phone] Encounter Details Date Type Department Care Team (Late st Contact Info) Description 06/04/2024 [facility] Medical Advice [facility] Diabetes Education [address] [place] [address] Flor Joseph [address] [place] [address] Social History Tobacco Use Types Packs/Day Years Used Date Smoking Tobacco: Never Smokeless Tobacco: Never Alcohol Use Standard Drinks/Week Comments Not Currently 0 (1 standard drink = 0.6 oz pur e alcohol) PHQ-2 Answer Date Recorded PHQ-2 Score 0 06/03/2024 [place] Depression Scale Answer Date Recorded Last EPDS Total Score Not on file 04/12/2023 The thought of harming myself has occurred to me . Never 04/12/2023 Adolescent Education Answer Date Record ed Getting School Help Needed Not on file 03/16 Education Answer Date Recorded What is the highest level of school you have completed or the highest degree you have received? 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 office Not on file Not on file Not on file documented as of this encounter Plan of Treatment Upcoming Encounters Date Type Department Care Team (Late st Contact Info) Description 08/21/2024 10:00 AM ADMINISTRATIVE SUPPORT SPECIALIST Virtual Visit [facility] Diabetes Education [address] [place] [address] Flor Joseph [address] [place] [address] 09/08/2024 2:15 PM CDT Appointment [facility] Maternal Medicine [facility] [address] [place] [phone] Kenya Keating MD [address] [address] [address] 09/08/2024 2:45 PM CDT Office Visit [facility] Maternal Medicine Center [place] [address] [place] [phone] Kenya Keating MD [address] [address] 09/16/2024 3:30 PM CDT Office Visit [facility] Women's Clinic [place] [address] [place] [place] [address] Shamar Pacheco MD [address] [place] [address] 09/17/2024 2:30 PM CDT Virtual Visit [facility] Endocrinology Clinic [address] [place] [phone] Renée Alanis PA-C [address] [place] [address] 09/22/2024 2:00 PM CDT Appointment [facility] 2450 [place] [phone] Kenya Keating MD [address] [place] [address] 400 [place], [place] [address] 10/13/2024 3:30 PM CDT Office Visit [facility] [address] [place] [address] [phone] Shamar Pacheco MD [address] [place] [address] 10/16/2024 2:30 PM CDT Virtual Visit [facility] Endocrinology Clinic [address] [phone] Renée Alanis PA-C [address] [address] 11/10/2024 3:45 PM CDT Office Visit [facility] [address] [place] [address] [place] [phone] Shamar Pacheco MD [address] [place] [address] 11/19/2024 2:30 PM CDT Virtual Visit [facility] Endocrinology Clinic [address] [phone] Renée Alanis PA-C [address] [address] 12/17/2024 2:30 PM CDT Virtual Visit [facility] Endocrinology Clinic [address] [phone] Renée Alanis PA-C [address] [address] 01/07/2025 1:30 PM CDT Virtual Visit [facility] Endocrinology [address] [phone] Renée Alanis PA-C [address] [address] 01/11/2025 7:30 AM CDT Hospital Encounter [facility] [address] [place] [address] Shamar Pacheco MD [address] [place] [address] Modified White class B pregestational diabetes mellitus (Primary Dx); Multigravida of advanced maternal age in first trimester; Previous delivery, antepartum condition or complication 01/11/2025 7:30 AM CDT - 01/11/2025 9:00 AM CDT Surgery [facility] [address] [place] [address] Shamar Pacheco MD [address] [place] [address] REPEAT SECTION Scheduled Procedures Name Priority Associated [...] documented as of this encounter Care Teams Equipment Operation Instructor Relationship Specialty Start Date End Date [facility], [address] [address] PCP - General 03/22/17 Shamar Pacheco MD [address] [place] [address] Assigned OBGYN Provider 10/09/[address] [address] Back Seam Stitcher Dietitian, Registered 10/16/[address] [address] Back Seam Stitcher Dietitian, Registered 11/02/21 Fiona Conrad [address] [place] [address] Back Seam Stitcher Dietitian, Registered 01/23/23 Atif Garcia MD [address] [address] geriatric care manager 05/01/24 Dina Perez PA-C 500 [place] [address] Physician Net Mender Endocrinology, Diabetes, and Metabolism 06/02/24 Tiffani Farmer MD 420 [facility] 101 [place], [place] [address] Assigned Endocrinology Provider 06/15/24 Cydney Olivarez Lori Community Health Worker 08/13/2408/14 documented as of this encounter
--- OUTSIDE RECORDS SUMMARY | 2024-08-18 20:27 | XMS_ITS | Encounter Summary ---
Author Organization [place] Address [address] [place] [address] Care Team Providers Care Diet Technician Registered Name Role Phone [facility] Primary Care Provider Shamar Pacheco MD Unavailable [phone] Unavailable Unavailab Kellen Ca RD Unavailable [phone] Unavailable Unavailable Fiona Conrad Unavailable [facility] Fidel Garrido [facility] Unavailable Atif Garcia MD Unavailable [phone] Dina Perez PA-C Unavailable Tiffani Farmer MD Unavailable [phone] Cydney Olivarez Unavailable [phone] Reason for Visit * Reason Onset Date Comments MyChart Communication 05/25/2021 Pt bradley benjamin Encounter Details Date Type Department Care Team (Late st Contact Info) Description 05/25/2021 Guille Parra [facility] [address] [place] [address] Shamar Pacheco MD [address] [place], [place] [address] MyChart Communication (Pt questions) Social History Tobacco Use Types Packs/Day Years Used Date Smoking Tobacco: Never Smokeless Tobacco: Never Alcohol Use Standard Drinks/Week Comments Yes 0 (1 standard drink = 0.6 oz pur e alcohol) Comments No Sex and Gender Information Value Date Recorded Sex Assigned at Not on file Legal Sex Female 3:17 AM DUST PULLER Gender Identity Not on file Sexual Orientation Not on file 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 No / Unsure 05/23/2021 1:34 PM DUST PULLER documented as of this encounter Miscellaneous Notes * Telephone Encounter - Kat Fine RN - 05/25/2021 1:09 PM CST Please see jordan and advise. Last HCG 05/23 11,371 Kat Fine RN PULLER documented in this encounter Plan of Treatment Upcoming Encounters Date Type Department Care Team (Late st Contact Info) Description 08/21/2024 10:00 AM DUST PULLER Virtual Visit [facility] Diabetes Education [address]rd [place] [phone] [address] [place] [address] 09/08/2024 2:15 PM CDT Appointment [facility] Maternal Medicine [facility] [address] [facility] [address] [place] [address] Kenya Keating MD [address] [place] [address] 09/08/2024 2:45 PM CDT Office Visit [facility] Maternal Medicine [facility] [address] [facility] [address] [place] [address] Kenya Keating MD [address] [place] [address] 09/16/2024 3:30 PM CDT Office Visit [facility] [address] [place] [phone] Shamar Pacheco MD [address] [place] [address] 09/17/2024 2:30 PM CDT Virtual Visit [facility] Endocrinology [address] [place] [phone] Renée Alanis PA-C [address] [place] [address] 09/22/2024 2:00 PM CDT Appointment [facility] Heart Care [address] [place] [phone] Kenya Keating MD [address] [place] [address] 10/13/2024 3:30 PM CDT Office Visit [facility] [address] [place] [address] Shamar Pacheco MD [address] [place] [address] 10/16/2024 2:30 PM CDT Virtual Visit [facility] Endocrinology [address] [place] [phone] Renée Alanis PA-C [address] [facility] [address] [place] [address] 11/10/2024 3:45 PM CDT Office Visit [facility]'s [facility] [place] [address] [place] [phone] Shamar Pacheco MD [address] [place] [address] 11/19/2024 2:30 PM CDT Virtual Visit [facility] Endocrinology Clinic [address] [phone] Renée Alanis PA-C [address] [place] [address] [place] [address] 12/17/2024 2:30 PM CDT Virtual Visit [facility] Endocrinology Clinic [address] [phone] Renée Alanis PA-C [address] [address] 01/07/2025 1:30 PM CDT Virtual Visit [facility] Endocrinology Clinic [address] [phone] Renée Alanis PA-C [address] [address] 01/11/2025 7:30 AM CDT Hospital Encounter [facility] [address] [place] [phone] Shamar Pacheco MD [address] [place] [address] Modified White class B pregestational diabetes mellitus (Primary Dx); Multigravida of advanced maternal age in first trimester; Previous delivery, antepartum condition or complication 01/11/2025 7:30 AM CDT - 01/11/2025 9:00 AM CDT [facility] [address] [place] [address] Shamar Pacheco MD [address] [place] [address] REPEAT SECTION Scheduled Procedures Name Priority Associated Diagnoses Date/Ti me SECTION Modified White class B pregestational diabetes mellitus Multigravida of advanced maternal age in first trimester Previous delivery, antepartum condition or complication 01/11/2025 7:30 AM CDT documented as of this encounter Visit Diagnoses Not on filedocumented in this encounter Care Teams Diet Technician Registered Relationship Specialty Start Date End Date [facility], [facility] [address] [place] [address] PCP - General 03/22/17 Shamar Pacheco MD [address] [place] [address] Assigned OBGYN Provider 10/09/[address] [place] [address] Diesel Maintenance Technician Dietitian, Registered 10/16/21 11/01/[address] [address] Diesel Maintenance Technician Dietitian, Registered 10/16/[address] [address] Diesel Maintenance Technician Dietitian, Registered 11/02/21 Fiona Conrad [address] [place] [address] Diesel Maintenance Technician Dietitian, Registered 01/23/23 [facility] - [facility] [address] [place] [address] Assigned PCP 07/18/23 03/15/24 Atif Garcia MD [address] [facility] [address] [place] [address] hydro technician 05/01/24 Dina Perez PA-C [address] [place] [address] Physician Personal Property Appraiser Endocrinology, Diabetes, and Metabolism 06/02/24 Tiffani Farmer MD [address] [place] [address] 101 [place], [place] [address] Assigned Endocrinology Provider 06/15/24 Cydney Olivarez, Lori Community Health Worker 08/13/2408/14 documented as of this encounter
--- OUTSIDE RECORDS SUMMARY | 2024-08-18 20:27 | XMS_ITS | Encounter Summary ---
Author Organization [place] Address [address] [facility] [place] [address] Care Team Providers Care Cutter Grind Tool Technician Name Role Phone [facility] Primary Care Provider Shamar Pacheco MD Unavailable [phone] Unavailable [phone] Unavailable Unavailable Fiona Conrad Unavailable Atif Garcia MD Unavailable [phone] Dina Perez PA-C Unavailable Tiffani Farmer MD Unavailable [phone] Cydney Olivarez Unavailable [phone] Encounter Details Date Type Department Care Team (Late st Contact Info) Description 05/15/2024 [facility] [place] [facility] [address] [facility] [address] [place] [address] Karyn Carrasco, RN Social History Tobacco Use Types Packs/Day Years Used Date Smoking Tobacco: Never Smokeless Tobacco: Never Alcohol Use Standard Drinks/Week Comments Not Currently 0 (1 standard drink = 0.6 oz pur e alcohol) PHQ-2 Answer Date Recorded PHQ-2 Score 0 05/18/2024 [place] Depression Scale Answer Date Recorded Last EPDS [...] on file Legal Sex Female 3:17 AM VEHICLE PAINTER Gender Identity Not on file Sexual Orientation Not on file 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 office Not on file Not on file Not on file documented as of this encounter Plan of Treatment Upcoming Encounters Date Type Department Care Team (Late st Contact Info) Description 08/21/2024 10:00 AM VEHICLE PAINTER Virtual Visit [facility] Diabetes Education [address] [address] Flor Joseph [address] [place] [address] 09/08/2024 2:15 PM CDT Appointment [facility] [place] [address] [place] [phone] Kenya Keating MD [address] [place], [place] [phone] 09/08/2024 2:45 PM CDT Office Visit [facility] [place] [address] [place] [phone] Kenya Keating MD [address] [place], [place] [address] 09/16/2024 3:30 PM CDT Office Visit [facility] [place] [address] [place] [address] Shamar Pacheco MD [address] [place] [address] 09/17/2024 2:30 PM CDT Virtual Visit [facility] Endocrinology Clinic [address] [phone] Renée Alanis PA-C [address] [place] [address] 09/22/2024 2:00 PM CDT Appointment [facility] Care [address] [place] [phone] Kenya Keating MD [address] [place] [address] 400 [place] [address] 10/13/2024 3:30 PM CDT Office Visit [address] [address] Shamar Pacheco MD [address] [place] [address] 10/16/2024 2:30 PM CDT Virtual Visit [facility] Endocrinology Clinic [address] [phone] Renée Alanis PA-C [address] [place] [address] 11/10/2024 3:45 PM CDT Office Visit [address] [address] Shamar Pacheco MD [address] [place] [address] 11/19/2024 2:30 PM CDT Virtual Visit [facility] Endocrinology Clinic [address] [phone] Renée Alanis PA-C 420 [facility] [address] [place] [address] 12/17/2024 2:30 PM CDT Virtual Visit [facility] Endocrinology Clinic [address] [phone] Renée Alanis PA-C 420 [facility] [address] [place] [address] 01/07/2025 1:30 PM CDT Virtual Visit [facility] Endocrinology [address] [phone] Renée Alanis PA-C [address] [place] [address] 01/11/2025 7:30 AM CDT Hospital Encounter [facility] [address] [place] [address] Shamar Pacheco MD [address] [place] [address] Modified White class B pregestational diabetes mellitus (Primary Dx); Multigravida of advanced maternal age in first trimester; Previous delivery, antepartum condition or complication 01/11/2025 7:30 AM CDT - 01/11/2025 9:00 AM CDT Surgery [facility] [address] [place] [address] Shamar Pacheco MD [address] [place] [address] REPEAT SECTION Scheduled Procedures Name Priority Associated [...] documented as of this encounter Care Teams Cutter Grind Tool Technician Relationship Specialty Start Date End Date [facility] [place] [address] [place] [address] PCP - General 03/22/17 Shamar Pacheco MD [address] [place] [address] Assigned OBGYN Provider 10/09/[address] [address] Daylight Driller Dietitian, Registered 10/16/[address] [address] Daylight Driller Dietitian, Registered 11/02/21 Fiona Conrad [address] [place] [address] Daylight Driller Dietitian, Registered 01/23/23 Atif Garcia MD [address] [address] network firewall engineer 05/01/24 Dina Perez PA-C [address] [place] [address] Physician Computer Scientist Endocrinology, Diabetes, and Metabolism 06/02/24 Tiffani Farmer MD [address] [place] [address] Assigned Endocrinology Provider 06/15/24 Cydney Olivarez CHW Community Health Worker 08/13/2408/14 documented as of this encounter
--- OUTSIDE RECORDS SUMMARY | 2024-08-18 20:27 | XMS_ITS | Encounter Summary ---
Author Organization [place] Address [address] [facility] [place] [address] Care Team Providers Care Dyed Raw Stock Blower Feeder Name Role Phone [facility], [facility] Primary Care Provider Shamar Pacheco MD Unavailable Kellen Duran RD Unavailable [phone] Unavailable Unavailable Fiona Conrad Unavailable Atif Garcia MD Unavailable [phone] Dina Perez PA-C Unavailable Tiffani Farmer MD Unavailable [phone] Cydney Olivarez CHLori Unavailable [phone] Reason for Visit * Reason Onset Date Comments Test 05/01/2024 Encounter Details Date Type Department Care Team (Late st Contact Info) Description 05/01/2024 [facility] Medical Advice [facility] Women's [facility] [address] [place] [address] Shamar Pacheco MD [address] [place] [address] Test Social History Tobacco Use Types Packs/Day Years Used Date Smoking Tobacco: Never Smokeless Tobacco: Never Alcohol Use Standard Drinks/Week Comments Not Currently 0 (1 standard drink = 0.6 oz pur e alcohol) PHQ-2 Answer Date Recorded PHQ-2 Score 0 10/01/2022 [place] Depression Scale Answer Date Recorded Last EPDS [...] on file Legal Sex Female 3:17 AM WOOD POLISHER Gender Identity Not on file Sexual Orientation Not on file 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 EMRE Heath POLISHER * Telephone Encounter - Shamar Pacheco MD - 05/01/2024 11:31 AM WOOD POLISHER Congrats! Yes, we can check serial HCGs and perform an early U/S to establish viability the timing of which we can determine once we see the HCG levels. Please strongly encourage Holly to optimize her diabetes control as well Dr. Pacheco POLISHER * Telephone Encounter - Karyn Carrasco RN - 05/01/2024 11:17 AM WOOD POLISHER Please see Schoo message: Patient has +HPT and wondering if she can have her HCG levels monitored to help reduce anxiety. Please advise EMRE Heath POLISHER documented in this encounter Plan of Treatment Upcoming Encounters Date Type Department Care Team (Late st Contact Info) Description 08/21/2024 10:00 AM WOOD POLISHER Virtual Visit [facility] Diabetes Education [place] [address] [facility] [address] [place] [phone] Flor Joseph [address] [place] [address] 09/08/2024 2:15 PM CDT Appointment [facility] Maternal Medicine [facility] [address] [facility] [address] [place] [phone] Kenya Keating MD [address] [place], [place] [phone] 09/08/2024 2:45 PM CDT Office Visit [facility] Maternal [facility] [address] [place] [phone] Kenya Keating MD [address] [place], [place] [address] 09/16/2024 3:30 PM CDT Office Visit [facility] [place] [address] [place] [address] [place] [phone] Shamar Pacheco MD [address] [place] [address] 09/17/2024 2:30 PM CDT Virtual Visit [facility] Endocrinology [facility] [place] [address] [facility] [address] [place] [phone] Renée Alanis PA-C [address] [place] [address] [address] [place] [address] 09/22/2024 2:00 PM CDT Appointment [facility] Care [address] [place] [phone] Kenya Keating MD [address] [place], [place] [address] 10/13/2024 3:30 PM CDT Office Visit [facility] [address] [phone] Shamar Pacheco MD [address] [place] [address] 10/16/2024 2:30 PM CDT Virtual Visit [facility] Endocrinology Clinic [address] [phone] Renée Alanis PA-C [address] [address] 11/10/2024 3:45 PM CDT Office Visit [facility] [address] [phone] Shamar Pacheco MD [address] [place] [address] 11/19/2024 2:30 PM CDT Virtual Visit [facility] Endocrinology [facility] [address] [phone] Renée Alanis PA-C [address] [address] 12/17/2024 2:30 PM CDT Virtual Visit [facility] Endocrinology Clinic [address] [phone] Renée Alanis PA-C [address] [facility] 803 [place] [address] 01/07/2025 1:30 PM CDT Virtual Visit [facility] Endocr[facility]ology [facility] [place] [address] [facility] [address] 3rd [place] [phone] Renée Alanis PA-C 420 [facility] 803 [place] [address] 01/11/2025 7:30 AM CDT Hospital Encounter [facility] [address] [place] [phone] Shamar Pcaheco MD [address] [place] [address] Modified White class B pregestational diabetes mellitus (Primary Dx); Multigravida of advanced maternal age in first trimester; Previous delivery, antepartum condition or complication 01/11/2025 7:30 AM CDT - 01/11/2025 9:00 AM CDT Surgery [facility] [address] [place] [phone] Shamar Pacheco MD [address] [place] [address] REPEAT SECTION Scheduled Orders Name Type Priority Associated Diagnoses Orde r Schedule HCG quantitative Lab STAT test positive 4 Occurrences starting 05/01/2024 until 08/01/2024, 2 completed Scheduled Procedures Name Priority Associated Diagnoses Date/Ti me SECTION Modified White class B pregestational diabetes mellitus Multigravida of advanced maternal age in first trimester Previous delivery, antepartum condition or complication 01/11/2025 7:30 AM CDT documented as of this encounter Results * (ABNORMAL) HCG quantitative (05/06/2024 3:05 PM WOOD POLISHER) hCG Quantitative 629(H) <5 mIU/mL 05/06/20 3:48 PM WOOD POLISHER [facility] Comment: Adult: 0-5 mIU/mL for healthy non- person Neonates: Should be within normal ranges by 2 days after Blood BLOOD SPECIMEN / Unknown Venipuncture / Unknown 05/06/2024 3:05 PM WOOD POLISHER 05/06/2024 3:05 PM WOOD POLISHER Shamar Pacheco MD LAB - BLOOD ORDERABLES Final Result LABORATORY [facility] [address] Lab (1st floor, no room number) [place] [address] * (ABNORMAL) HCG quantitative (05/04/2024 3:53 PM WOOD POLISHER) Pathologist [facility] hCG Quantitative 328(H) <5 mIU/mL 05/04/20 4:44 PM WOOD POLISHER [facility] Comment: Adult: 0-5 mIU/mL for healthy non- person Neonates: Should be within normal ranges by 2 days after Blood BLOOD SPECIMEN / Unknown Venipuncture / Unknown 05/04/2024 3:53 PM WOOD POLISHER 05/04/2024 3:53 PM WOOD POLISHER Shamar Pacheco MD LAB - BLOOD ORDERABLES Final Result LABORATORY [facility] Lab [address] Lab (1st floor, no room number) [place] [address] documented in this encounter Visit Diagnoses Diagnosis test positive- Primary examination or test, positive result Modified White class B pregestational diabetes mellitus- [...] documented as of this encounter Care Teams Dyed Raw Stock Blower Feeder Relationship Specialty Start Date End Date [facility], [facility] [address] [place] [address] PCP - General 03/22/17 Shamar Pacheco MD [address] [place] [address] Assigned OBGYN Provider 10/09/[address] [address] Graphic Design Assistant Dietitian, Registered 10/16/[address] [address] Graphic Design Assistant Dietitian, Registered 11/02/21 Fiona Conrad [address] [place] [address] Graphic Design Assistant Dietitian, Registered 01/23/23 Atif Garcia MD [address] [address] rig superintendent 05/01/24 Dina Perez PA-C [address] [place] [address] Physician Tactical Response Group Officer Endocrinology, Diabetes, and Metabolism 06/02/24 Tiffani Farmer MD [address] [place] [address] [address] [place], [place] [address] Assigned Endocrinology Provider 06/15/24 Cydney Olivarez, Lori Community Health Worker 08/13/2408/14 documented as of this encounter
--- OUTSIDE RECORDS SUMMARY | 2024-08-18 20:27 | XMS_ITS | Encounter Summary ---
Author Organization [place] Address [facility] [place] [address] Care Team Providers Care Rfid Manager Name Role Phone [facility], [facility] Primary Care Provider Shamar Pacheco MD Unavailable Kellen Duran RD Unavailable [phone] Unavailable Unavailable Fiona Conrad Unavailable Atif Garcia MD Unavailable [phone] Dina Perez PA-C Unavailable Tiffani Farmer MD Unavailable [phone] Cydney Olivarez Unavailable [phone] Encounter Details Date Type Department Care Team (Late st Contact Info) Description 06/04/2024 [facility] Medical Advice [facility] Endocrinology Clinic [address] 3rd [place] [address] [place]a [place] Type 2 diabetes mellitus with hyperglycemia, with long-term current use of insulin (H) (Primary Dx) Social History Tobacco Use Types Packs/Day Years Used Date Smoking Tobacco: Never Smokeless Tobacco: Never Alcohol Use Standard Drinks/Week Comments Not Currently 0 (1 standard drink = 0.6 oz pur e alcohol) PHQ-2 Answer Date Recorded PHQ-2 Score 0 06/03/2024 [place] Depression Scale Answer Date Recorded Last EPDS [...] on file Legal Sex Female 3:17 AM COMMERCIAL CREDIT ANALYST Gender Identity Not on file Sexual Orientation Not on file 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 office Not on file Not on file Not on file documented as of this encounter Miscellaneous Notes * Telephone Encounter - Tiffani Farmer MD - 06/04/2024 10:38 AM CST Lantus 25 units daily Tiffani Farmer MD Staff Physician Division of Endocrinology [facility] Pager #[phone] ERCIAL CREDIT ANALYST documented in this encounter Plan of Treatment Upcoming Encounters Date Type Department Care Team (Late st Contact Info) Description 08/21/2024 10:00 AM COMMERCIAL CREDIT ANALYST Virtual Visit [facility] Diabetes Education [address] 3rd [place] [phone] [address] [place] [address] 09/08/2024 2:15 PM CDT Appointment [facility] Maternal Medicine [facility] [address] [place] [address] Kenya Keating MD [address] [place] [address] 09/08/2024 2:45 PM CDT Office Visit [facility] Maternal Medicine [facility] [address] [place] [address] Kenya Keating MD [address] [place] [address] 09/16/2024 3:30 PM CDT Office Visit [facility] [address] [place] [address] Shamar Pacheco MD [address] [place] [address] 09/17/2024 2:30 PM CDT Virtual Visit [facility] Endocrinology Clinic [address] [place] [phone] Renée Alanis PA-C [address] [address] 09/22/2024 2:00 PM CDT Appointment [facility] Children[facility] Heart Care [address] [place] [phone] Kenya Keating MD [address] [facility] [address] [place] [address] 10/13/2024 3:30 PM CDT Office Visit [facility] [address] [facility] [address] [place] [phone] Shamar Pacheco MD [address] [place] [address] 10/16/2024 2:30 PM CDT Virtual Visit [facility] Endocrinology [address] [place] [phone] Renée Alanis PA-C [address] [address] 11/10/2024 3:45 PM CDT Office Visit [facility] [place] [address] [place] [address] Shamar Pacheco MD [address] [place] [address] 11/19/2024 2:30 PM CDT Virtual Visit [facility] Endocrinology Clinic [address] [phone] Renée Alanis PA-C [address] [address] 12/17/2024 2:30 PM CDT Virtual Visit [facility] Endocrinology Clinic [address] [phone] Renée Alanis PA-C [address] [address] 01/07/2025 1:30 PM CDT Virtual Visit [facility] Endocrinology Clinic [address] [phone] Renée Alanis PA-C [address] [address] 01/11/2025 7:30 AM CDT Hospital Encounter [facility] Birth[facility] [address] [place] [address] Shamar Pacheco MD [address] [place] [address] Modified White class B pregestational diabetes mellitus (Primary Dx); Multigravida of advanced maternal age in first trimester; Previous delivery, antepartum condition or complication 01/11/2025 7:30 AM CDT - 01/11/2025 9:00 AM CDT [facility] [address] [place] [address] Shamar Pacheco MD [address] [place] [address] REPEAT SECTION Scheduled Procedures Name Priority Associated Diagnoses Date/Ti me SECTION Modified White class B pregestational diabetes mellitus Multigravida of advanced maternal age in first trimester Previous delivery, antepartum condition or complication 01/11/2025 7:30 AM CDT documented as of this encounter Visit Diagnoses Diagnosis Type 2 diabetes mellitus with hyperglycemia, with long-term current use of insulin (H)- Primary Modified White class B pregestational diabetes [...] documented as of this encounter Care Teams Rfid Manager Relationship Specialty Start Date End Date [facility], [place] [address] [place] [address] PCP - General 03/22/17 Shamar Pacheco MD [address] [place] [address] Assigned OBGYN Provider 10/09/[address] [address] Geophysical Prospector Dietitian, Registered 10/16/[address] [address] Geophysical Prospector Dietitian, Registered 11/02/21 Fiona Conrad [address] [place] [address] Geophysical Prospector Dietitian, Registered 01/23/23 Atif Garcia MD [address] [address] combat systems operator 05/01/24 Dina Perez PA-C [address] [place] [address] Physician Electronics Assembler And Tester Endocrinology, Diabetes, and Metabolism 06/02/24 Tiffani Farmer MD [address] [place] [address] Assigned Endocrinology Provider 06/15/24 Cydney Olivarez CHW Community Health Worker 08/13/2408/14 documented as of this encounter
--- OUTSIDE RECORDS SUMMARY | 2024-08-18 20:27 | XMS_ITS | Encounter Summary ---
Author Organization [place] Address [address] [place] [address] Care Team Providers Care It Support Technician Name Role Phone [facility], [facility] Primary Care Provider Shamar Pacheco MD Unavailable Kellen Duran RD Unavailable [phone] Unavailable Unavailable Fiona Conrad Unavailable [phone] [facility] Unavailable Atif Garcia MD Unavailable [phone] Dina Perez PA-C Unavailable Tiffani Farmer MD Unavailable [phone] Cydney Olivarez Unavailable [phone] Encounter Details Date Type Department Care Team (Late st Contact Info) Description 08/24/2022 MyC Medical Advice [facility] Women's [facility] [address] [place] [address] Shamar Pacheco MD [address] [place] [address] Early stage of (Primary Dx) [...] on file Legal Sex Female 3:17 AM SERVICE WRITER ADVISOR Gender Identity Not on file Sexual Orientation Not on file 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 Pt's first day of her last menstrual cycle is 07/25/22 and requesting HCG blood test due to SAB x2. Orders are in. EMRE Caldera ICE WRITER ADVISOR documented in this encounter Plan of Treatment Upcoming Encounters Date Type Department Care Team (Late st Contact Info) Description 08/21/2024 10:00 AM SERVICE WRITER ADVISOR Virtual Visit [facility] Diabetes Education [address] [place] [phone] Flor Joseph [address] [place] [phone] 09/08/2024 2:15 PM CDT Appointment [facility] Maternal Medicine [facility] [address] [place] [address] Kenya Keating MD [address] [place] [address] [phone] 09/08/2024 2:45 PM CDT Office Visit [facility] Maternal Medicine [facility] [address] [place] [address] Kenya Keating MD [address] [place] [address] 09/16/2024 3:30 PM CDT Office Visit [address] [place] [phone] Shamar Pacheco MD [address] [place] [address] 09/17/2024 2:30 PM CDT Virtual Visit [facility] Endocrinology Clinic [address] [place] [address] Renée Alanis PA-C [address] 937[address] 09/22/2024 2:00 PM CDT Appointment [facility] Heart Care [address] [place] [phone] Kenya Keating MD [address] [place] [address] 10/13/2024 3:30 PM CDT Office Visit [facility] [address] [phone] Shamar Pacheco MD [address] [place] [address] 10/16/2024 2:30 PM CDT Virtual Visit [facility] Endocrinology Clinic [address] [phone] Renée Alanis PA-C [address] 9[address] 11/10/2024 3:45 PM CDT Office Visit [facility] [place] [address] [place] [phone] Shamar Pacheco MD [address] [place] [address] 11/19/2024 2:30 PM CDT Virtual Visit [facility] Endocrinology [address] [phone] Renée Alanis PA-C [address] [place] [address] 12/17/2024 2:30 PM CDT Virtual Visit [facility] Endocrinology Clinic [address] [phone] Renée Alanis PA-C [address] [address] 01/07/2025 1:30 PM CDT Virtual Visit [facility] Endocrinology [address] [phone] Renée Alanis PA-C [address] [place] [address] 01/11/2025 7:30 AM CDT Hospital Encounter [facility] [address] [place] [phone] Shamar Pacheco MD [address] [place] [address] Modified White class B pregestational diabetes mellitus (Primary Dx); Multigravida of advanced maternal age in first trimester; Previous delivery, antepartum condition or complication 01/11/2025 7:30 AM CDT - 01/11/2025 9:00 AM CDT [facility] [address] [place] [address] Shamar Pacheco MD [address] [place] [address] REPEAT SECTION Scheduled Procedures Name Priority Associated Diagnoses Date/Ti me SECTION Modified White class B pregestational diabetes mellitus Multigravida of advanced maternal age in first trimester Previous delivery, antepartum condition or complication 01/11/2025 7:30 AM CDT documented as of this encounter Visit Diagnoses Diagnosis Early stage [...] documented as of this encounter Care Teams It Support Technician Relationship Specialty Start Date End Date [facility], [address] [address] PCP - General 03/22/17 Shamar Pacheco MD [address] [place] [address] Assigned OBGYN Provider 10/09/[address] [address] Fish Farmer Dietitian, Registered 10/16/[address] [address] Fish Farmer Dietitian, Registered 11/02/21 Fiona Conrad [address] [place] [address] Fish Farmer Dietitian, Registered 01/23/23 [facility] [address] Assigned PCP 07/18/23 03/15/24 Atif Garcia MD [address] [address] medical billing service 05/01/24 Dina Perez PA-C [address] [place] [phone] Physician Internet Cafe Manager Endocrinology, Diabetes, and Metabolism 06/02/24 Tiffani Farmer MD [address] [place] [address] 324995 Assigned Endocrinology Provider 06/15/24 Cydney Olivarez Lori Community Health Worker 08/13/2408/14 documented as of this encounter
--- OUTSIDE RECORDS SUMMARY | 2024-08-18 20:27 | XMS_ITS | Encounter Summary ---
Author Organization [place] Address [address] [facility] [place] [address] Care Team Providers Care Machine Inspector Name Role Phone [facility] Primary Care Provider Shamar Pacheco MD Unavailable Annalisa Luna RD Unavailable Unavailab Kellen Ca RD Unavailable [phone] Unavailable Unavailable Fiona Conrad Unavailable [facility] G[facility] Unavailable Atif Garcia MD Unavailable [phone] Dina Perez PA-C Unavailable Tiffani Farmer MD Unavailable [phone] Cydney Olivarez Unavailable [phone] Reason for Visit * Reason Onset Date Comments Test 05/12/2021 Encounter Details Date Type Department Care Team (Late st Contact Info) Description 05/12/2021 MyC Medical Advice [facility] Women's [facility] [address] [place] [address] Shamar Pacheco MD [address] [place] [address] Test Social History Tobacco Use Types Packs/Day Years Used Date Smoking Tobacco: Never Smokeless Tobacco: Never Alcohol Use Standard Drinks/Week Comments Yes 0 (1 standard drink = 0.6 oz pur e alcohol) Comments No Sex and Gender Information Value Date Recorded Sex Assigned at Not on file Legal Sex Female 3:17 AM AUTO TRANSMISSION SPECIALIST Gender Identity Not on file Sexual Orientation Not on file 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 documented as of this encounter Plan of Treatment Upcoming Encounters Date Type Department Care Team (Late st Contact Info) Description 08/21/2024 10:00 AM AUTO TRANSMISSION SPECIALIST Virtual Visit [facility] Diabetes Education [address] [place] [phone] Flor Joseph [address] [place] [address] 09/08/2024 2:15 PM CDT Appointment [facility] Maternal Medicine [facility] [place] [address] [place] [phone] Kenya Keating MD [address] [place], [place] [address] 09/08/2024 2:45 PM CDT Office Visit [facility] Maternal Medicine [facility] [place] [address] [place] [phone] Kenya Keating MD [address] [place], [place] 4[address] 09/16/2024 3:30 PM CDT Office Visit [facility] [place] [address] [place] [phone] Shamar Pacheco MD [address] [place] [address] 09/17/2024 2:30 PM CDT Virtual Visit [facility] Endocrinology Clinic [place] [address] [phone] Renée Alanis PA-C [address] [place] [address] 803 [place] [address] 09/22/2024 2:00 PM CDT Appointment [facility] Heart Care [address] [place] [phone] Kenya Keating MD [address] [facility] [address] [place], [place] [address] 10/13/2024 3:30 PM CDT Office Visit [facility] [address] [phone] Shamar Pacheco MD [address] [place] [address] 10/16/2024 2:30 PM CDT Virtual Visit [facility] Endocrinology Clinic [address] [phone] Renée Alanis PA-C [address] [place] [address] 11/10/2024 3:45 PM CDT Office Visit [facility] 303 [facility] [address] [place] [phone] Shamar Pacheco MD [address] [place] [address] 11/19/2024 2:30 PM CDT Virtual Visit [facility] Endocrinology Clinic [address] [phone] Renée Alanis PA-C 420 [facility] [address] [place] [address] 12/17/2024 2:30 PM CDT Virtual Visit [facility] Endocrinology Clinic [address] [place] [phone] Renée Alanis PA-C 420 [facility] [address] [place] [address] 01/07/2025 1:30 PM CDT Virtual Visit [facility] Endocrinology Clinic [address] [place] [phone] Renée Alanis PA-C [address] [address] 01/11/2025 7:30 AM CDT Hospital Encounter [facility] [address] [place] [address] Shamar Pacheco MD [address] [place] [address] Modified White class B pregestational diabetes mellitus (Primary Dx); Multigravida of advanced maternal age in first trimester; Previous delivery, antepartum condition or complication 01/11/2025 7:30 AM CDT - 01/11/2025 9:[address] [facility] [address] [place] [address] Shamar Pacheco MD [address] [place] [address] REPEAT SECTION Scheduled Procedures Name Priority Associated Diagnoses Date/Ti me SECTION Modified White class B pregestational diabetes mellitus Multigravida of advanced maternal age in first trimester Previous delivery, antepartum condition or complication 01/11/2025 7:30 AM CDT documented as of this encounter Results * (ABNORMAL) hCG Quantitative (05/17/2021 1:15 PM AUTO TRANSMISSION SPECIALIST) hCG Quantitative 1,460(H) 0 - 5 IU/L 05/17/2021 6:02 PM AUTO TRANSMISSION SPECIALIST [facility]X LABORATORY Comment: Adult: 0-5 IU/L for healthy non- person Neonates: Should be within normal ranges by 2 days after Blood VENOUS BLOOD / Unknown Venipuncture / Unknown 05/17/2021 1:15 PM AUTO TRANSMISSION SPECIALIST 05/17/2021 1:15 PM AUTO TRANSMISSION SPECIALIST Shamar Pacheco MD LAB - BLOOD ORDERABLES Final Result Performing Organization Address City/[facility]/ZIP Co de Phone Number LABORATORY [address] Lab (no room number, 1st floor of [facility]) [place] [address], [facility] [phone] * (ABNORMAL) hCG Quantitative (05/14/2021 2:10 PM AUTO TRANSMISSION SPECIALIST) hCG Quantitative 413(H) 0 - 5 IU/L 05/15/20 2:25 PM AUTO TRANSMISSION SPECIALIST OX LABORATORY Comment: Adult: 0-5 IU/L for healthy non- person Neonates: Should be within normal ranges by 2 days after Blood STRUCTURE OF RIGHT UPPER LIMB / Unknown Venipuncture / Unknown 05/14/2021 2:10 PM AUTO TRANSMISSION SPECIALIST 05/14/2021 2:10 PM AUTO TRANSMISSION SPECIALIST Shamar Pacheco MD LAB - BLOOD ORDERABLES Final Result [facility] [address] [place] [address] Lab (no room number, 1st floor of clinic) [place] [address], [place] [phone] documented in this encounter Visit Diagnoses Diagnosis History of miscarriage- Primary Personal history of other genital system and obstetric disorders Modified White class B pregestational diabetes mellitus- [...] complication documented in this encounter Care Teams Machine Inspector Relationship Specialty Start Date End Date [facility], [address] [address] PCP - General 03/22/17 Shamar Pacheco MD [address] [place] [address] Assigned OBGYN Provider 10/09/[address] [place] [address] Supervisor Patching Dietitian, Registered 10/16/21 11/01/[address] [address] Supervisor Patching Dietitian, Registered 10/16/[address] [address] Supervisor Patching Dietitian, Registered 11/02/21 Fiona Conrad [address] [place] [address] Supervisor Patching Dietitian, Registered 01/23/23 [facility] - Hema [address] [address] Assigned PCP 07/18/23 03/15/24 Atif Garcia MD [address] [facility] [address] [place] [address] department clinician 05/01/24 Dina Perez PA-C [address] [place] [address] Physician Water System Operator Endocrinology, Diabetes, and Metabolism 06/02/24 Tiffani Farmer MD [address] [place] [address] [address] [place], [place] 7357[address] Assigned Endocrinology Provider 06/15/24 Cydney Olivarez CHW Community Health Worker 08/13/2408/14 documented as of this encounter
--- OUTSIDE RECORDS SUMMARY | 2024-08-18 20:27 | XMS_ITS | Encounter Summary ---
Author Organization [place] Address [address] [facility] [place] [address] Care Team Providers Care Maintenance Worker Name Role Phone [facility], [facility] Primary Care Provider Shamar Pacheco MD Unavailable Kellen Duran RD Unavailable [phone] Unavailable Unavailable Fiona Conrad Unavailable [facility] - [facility] Unavailable Atif Garcia MD Unavailable [phone] Dina Perez PA-C Unavailable Tiffani Farmer MD Unavailable [phone] Cydney Olivarez Unavailable [phone] Encounter Details Date Type Department Care Team (Late st Contact Info) Description 04/08/2023 MyC Medical Advice Located Within [facility] [address] [address] Shawna Carcamo Social History Tobacco Use Types Packs/Day Years Used Date Smoking Tobacco: Never Smokeless Tobacco: Never Alcohol Use Standard Drinks/Week Comments Not Currently 0 (1 standard drink = 0.6 oz pur e alcohol) PHQ-2 Answer Date Recorded PHQ-2 Score 0 10/01/2022 [place] Depression Scale Answer Date Recorded Last EPDS [...] on file Legal Sex Female 3:17 AM 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 STATION OPERATOR Gender Identity Not on file Sexual Orientation [...] st Contact Info) Description 08/21/2024 10:00 AM COMPRESSOR STATION OPERATOR Virtual Visit [facility] Diabetes Education [address] [place] [address] Flor Joseph [address] [place] [address] 09/08/2024 2:15 PM CDT Appointment [facility] Maternal Medicine Center [place] [address] [facility] [address] [place] [phone] Kenya Keating MD [address] [place], [place] [address] 09/08/2024 2:45 PM CDT Office Visit [facility] Maternal Medicine [facility] [place] [address] [place] [phone] Kenya Keating MD [address] [place], [place] [address] 09/16/2024 3:30 PM CDT Office Visit [facility] [address] [place] [place] [phone] Shamar Pacheco MD [address] [place] [address] 09/17/2024 2:30 PM CDT Virtual Visit [facility] Endocrinology [facility] 9[address] [facility] [address] [place] [phone] Renée Alanis PA-C [address] [address] 09/22/2024 2:00 PM CDT Appointment [facility] Heart Care [address] [place] [phone] Kenya Keating MD [address] [place] [address] 10/13/2024 3:30 PM CDT Office Visit [facility] [address] [place] [address] [phone] Shamar Pacheco MD [address] [place] [address] 10/16/2024 2:30 PM CDT Virtual Visit [facility] Endocrinology [place] [address] [facility] [address] [place] [phone] Renée Alanis PA-C [address] [address] 11/10/2024 3:45 PM CDT Office Visit [facility] [address] [place] [place] [address] Shamar Pacheco MD [address] [place] [address] 11/19/2024 2:30 PM CDT Virtual Visit [facility] Endocrinology [address] [phone] Renée Alanis PA-C [address] [address] 12/17/2024 2:30 PM CDT Virtual Visit [facility] Endocrinology [address] [phone] Renée Alanis PA-C [address] [address] 01/07/2025 1:30 PM CDT Virtual Visit [facility] Endocrinology [address] [phone] Renée Alanis PA-C [address] [address] 01/11/2025 7:30 AM CDT Hospital Encounter [facility] [address] [place] [address] Shamar Pacheco MD [address] [place] [address] Modified White class B pregestational diabetes mellitus (Primary Dx); Multigravida of advanced maternal age in first trimester; Previous delivery, antepartum condition or complication 01/11/2025 7:30 AM CDT - 01/11/2025 9:00 AM CDT Surgery [facility] [address] [place] [address] Shamar Pacheco MD [address] [place] [address] REPEAT SECTION Scheduled Procedures Name Priority Associated [...] documented as of this encounter Care Teams Maintenance Worker Relationship Specialty Start Date End Date [facility], [address] [address] PCP - General 03/22/17 Shamar Pacheco MD [address] [place] [address] Assigned OBGYN Provider 10/09/[address] [address] Buccaro Dietitian, Registered 10/16/[address] [address] Buccaro Dietitian, Registered 11/02/21 Fiona Conrad [address] [place] [address] Buccaro Dietitian, Registered 01/23/23 [facility] - Hema [address] [address] Assigned PCP 07/18/23 03/15/24 Atif Garcia MD [facility] [address] [place] [address] match maker 05/01/24 Dina Perez PA-C [address] [place] [address] Physician Machine Set Up Technician Endocrinology, Diabetes, and Metabolism 06/02/24 Tiffani Farmer MD [address] [place] [address] 101 [place] [address] Assigned Endocrinology Provider 06/15/24 Cydney Olivarez CHW Community Health Worker 08/13/2408/14 documented as of this encounter
--- OUTSIDE RECORDS SUMMARY | 2024-08-18 20:27 | XMS_ITS | Encounter Summary ---
Author Organization [place] Address [address] [facility] [place] [address] Care Team Providers Care Play Reader Name Role Phone [facility], [facility] Primary Care Provider Shamar Pacheco MD Unavailable Kellen Duran RD Unavailable [phone] Unavailable Unavailable Fiona Conrad Unavailable [facility] - Fidel Garrido [facility] Unavailable Atif Garcia MD Unavailable [phone] Dina Perez PA-C Unavailable Tiffani Farmer MD Unavailable [phone] Cydney Olivarez Unavailable [phone] Encounter Details Date Type Department Care Team (Late st Contact Info) Description 01/11/2022 MyC Medical Advice M [address] [address] Cheyenne Monet, RD [address] [place], [place] [id number] Social History Tobacco Use Types Packs/Day Years Used Date Smoking Tobacco: Never Smokeless Tobacco: Never Alcohol Use Standard Drinks/Week Comments Not Currently 0 (1 standard drink = 0.6 oz pur e alcohol) PHQ-2 Answer Date Recorded PHQ-2 Score 0 05/30/2021 Education Answer Date Recorded What is the highest level of school you have completed or the highest degree you have received? 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 No / Unsure 01/12/2022 3:18 PM CDT documented as of this encounter Plan of Treatment Upcoming Encounters Date Type Department Care Team ([facility] st Contact Info) Description 08/21/2024 10:[address] FOREMAN Virtual Visit [facility] Diabetes Education [address]rd [place] [address] Flor Joseph [address] [place] [address] 09/08/2024 2:15 PM CDT Appointment [facility] Maternal Medicine [facility] [address] [place] [phone] Kenya Keating MD [address] [address] 7[address] 09/08/2024 2:45 PM CDT Office Visit [facility] Maternal Medicine [place] [address] [place] [phone] Kenya Keating MD [address] [facility] [address] 8[address] 09/16/2024 3:30 PM CDT Office Visit [facility] Women's Clinic [place] [address] [place] [address] Shamar Pacheco MD [address] [place] [address] 09/17/2024 2:30 PM CDT Virtual Visit [facility] Endocrinology Clinic [address]rd [place] [phone] Renée Alanis PA-C [address] [place] [address] 09/22/2024 2:00 PM CDT Appointment [facility] Heart Care 2450 [place] [phone] Kenya Keating MD [address] [place] [address] 400 [place], [place] [address] 10/13/2024 3:30 PM CDT Office Visit [facility] [address] [place] [address] [phone] Shamar Pacheco MD [address] [place] [address] 10/16/2024 2:30 PM CDT Virtual Visit [facility] Endocrinology Clinic [address] [phone] Renée Alanis PA-C [address] [address] 11/10/2024 3:45 PM CDT Office Visit [facility] [address] [place] [place] [phone] Shamar Pacheco MD [address] [place] [address] 11/19/2024 2:30 PM CDT Virtual Visit [facility] Endocrinology Clinic [address] [phone] Renée Alanis PA-C [address] [address] 12/17/2024 2:30 PM CDT Virtual Visit [facility] Endocrinology Clinic [address] [phone] Renée Alanis PA-C [address] [address] 01/07/2025 1:30 PM CDT Virtual Visit [facility] Endocrinology [address] [phone] Renée Alanis PA-C [address] [address] 01/11/2025 7:30 AM CDT Hospital Encounter [facility] [address] [place] [address] Shamar Pacheco MD [address] [place] [address] Modified White class B pregestational diabetes mellitus (Primary Dx); Multigravida of advanced maternal age in first trimester; Previous delivery, antepartum condition or complication 01/11/2025 7:30 AM CDT - 01/11/2025 9:00 AM CDT Surgery [facility] [address] [place] [address] Shamar Pacheco MD [address] [place] [address] REPEAT SECTION Scheduled Procedures Name Priority Associated Diagnoses Date/Ti me SECTION Modified White class B pregestational diabetes mellitus Multigravida of advanced maternal age in first trimester Previous delivery, antepartum condition or complication 01/11/2025 7:30 AM CDT documented as of this encounter Visit Diagnoses Not on filedocumented in this encounter Additional Health Concerns Assessment Noted Time PHQ-9 Depression Total Score: 0 05/31/20 7:[address] FOREMAN documented as of this encounter Care Teams Play Reader Relationship Specialty Start Date End Date [facility], [facility] [address] [place] [address] PCP - General 03/22/17 Shamar Pacheco MD [address] [place] [address] Assigned OBGYN Provider 10/09/[address] [address] Environmental Management Specialist Dietitian, Registered 10/16/[address] [address] Environmental Management Specialist Dietitian, Registered 11/02/21 Fiona Conrad [address] [place] [address] Environmental Management Specialist Dietitian, Registered 01/23/23 Clinic - [facility]idel Garrido [address] [address] Assigned PCP 07/18/23 03/15/24 Atif Garcia MD [address] [facility] [address] [address] [place] [address] financial service rep 05/01/24 Dina Perez PA-C [address] [place] [address] Physician Animal Handler Endocrinology, Diabetes, and Metabolism 06/02/24 Tiffani Farmer MD [address] [place] [address] 101 [place], [place] 9[address] Assigned Endocrinology Provider 06/15/24 Cydney Olivarez CHW Community Health Worker 08/13/2408/14 documented as of this encounter
--- OUTSIDE RECORDS SUMMARY | 2024-08-18 20:27 | XMS_ITS | Encounter Summary ---
Author Organization [place] Address [address] [place] [address]. [place] [address] Care Team Providers Care Joint Maker Machine Name Role Phone [facility], [facility] Primary Care Provider Shamar Pacheco MD Unavailable Kellen Duran RD Unavailable [phone] Unavailable Unavailable Fiona Conrad Unavailable [facility] - Fidel Garrido [facility] Unavailable Atif Garcia MD Unavailable [phone] Dina Perez PA-C Unavailable Tiffani Farmer MD Unavailable [phone] Cydney Olivarez Unavailable [phone] Encounter Details Date Type Department Care Team (Late st Contact Info) Description 04/03/2023 MyC Medical Advice [facility] [address] [place] [phone] [address] Social History Tobacco Use Types Packs/Day Years [...] on file 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 Sex Female 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 Gender Identity Not on file Sexual Orientation [...] st Contact Info) Description 08/21/2024 10:00 AM FOREIGN COLLECTION CLERK Virtual Visit [facility] Diabetes Education [address] [phone] Flor Joseph [address] [place] [address] 09/08/2024 2:15 PM CDT Appointment [facility] Maternal Medicine [place] [address] [address] [employer] [facility] [address] [place] [phone] Kenya Keating MD [address] [place] [address] [place] [address] 09/08/2024 2:45 PM CDT Office Visit [facility] Maternal Medicine [facility] [address] [place] [facility] [address] [place] [phone] Kenya Keating MD [address] [place] [address] [place] [address] 09/16/2024 3:30 PM CDT Office Visit [facility] [address] [place] [address] [place] [phone] Shamar Pacheco MD [address] [place] [address] 09/17/2024 2:30 PM CDT Virtual Visit [facility] Endocrinology [place] [phone] [facility] 3rd [place] [phone] Renée Alanis PA-C [address] [place] [address] 803 [place], [place] [phone] 09/22/2024 2:00 PM CDT Appointment [facility] Heart Care 2450 [place] [phone] Kenya Keating MD [address] [place] [address] 400 [place], [place] [address] 10/13/2024 3:30 PM CDT Office Visit [place] [address] [place] [address] [place] [phone] Shamar Pacheco MD [address] [place] [address] 10/16/2024 2:30 PM CDT Virtual Visit [facility] Endocrinology [address] [place] [phone] Renée Alanis PA-C [address] [place] [address] 11/10/2024 3:45 PM CDT Office Visit [facility] [address] [place] [address] [place] [phone] Shamar Pacheco MD [address] [place] [address] 11/19/2024 2:30 PM CDT Virtual Visit [facility] Endocrinology [address] [phone] Renée Alanis PA-C [address] [address] 12/17/2024 2:30 PM CDT Virtual Visit [facility] Endocrinology [address] [phone] Renée Alanis PA-C [address] [address] 01/07/2025 1:30 PM CDT Virtual Visit [facility] Endocrinology [address] [phone] Renée Alanis PA-C [address] [address] 01/11/2025 7:30 AM CDT Hospital Encounter [facility] [address] [place] [address] Shamar Pacheco MD [address] [place] [address] Modified White class B pregestational diabetes mellitus (Primary Dx); Multigravida of advanced maternal age in first trimester; Previous delivery, antepartum condition or complication 01/11/2025 7:30 AM CDT - 01/11/2025 9:00 AM CDT Surgery [facility] Birthplace [address] [place] [address] Shamar Pacheco MD [address] [place] [address] REPEAT SECTION Scheduled Procedures Name Priority Associated [...] documented as of this encounter Care Teams Joint Maker Machine Relationship Specialty Start Date End Date [facility], [address] [address] PCP - General 03/22/17 Shamar Pacheco MD [address] [place] [address] Assigned OBGYN Provider 10/09/[address] [address] Variety Lathe Operator Dietitian, Registered 10/16/[address] [address] Variety Lathe Operator Dietitian, Registered 11/02/21 Fiona Conrad [address] [place] [address] Variety Lathe Operator Dietitian, Registered 01/23/23 Clinic - [facility] Garrido [address] [address] Assigned PCP 07/18/23 03/15/24 Atif Garcia MD [address] [facility] 100 [place] [address] edge stainer machine 05/01/24 Dina Perez PA-C [address] [place] [id number] Physician Lens Hardener Endocrinology, Diabetes, and Metabolism 06/02/24 Tiffani Farmer MD 420 [facility] 101 [place] [address] Assigned Endocrinology Provider 06/15/24 Cydney Olivarez CHW Community Health Worker 08/13/2408/14 documented as of this encounter
--- OUTSIDE RECORDS SUMMARY | 2024-08-18 20:27 | XMS_ITS | Encounter Summary ---
Author Organization [place] Address [address] [facility] [place] [address] Care Team Providers Care Fundraising Consultant Name Role Phone [facility] Primary Care Provider Shamar Pacheco MD Unavailable Kellen Duran RD Unavailable [phone] Unavailable Unavailable Fiona Conrad Unavailable [facility] Fidel Garrido [facility] Unavailable Atif Garcia MD Unavailable [phone] Dina Perez PA-C Unavailable Tiffani Farmer MD Unavailable [phone] Cydney Olivarez Unavailable [phone] Reason for Visit * Reason Onset Date Comments Care 08/30/2022 Encounter Details Date Type Department Care Team (Late st Contact Info) Description 08/30/2022 MyC Medical Advice Fidel [facility] Women's [facility] [address] [place] [address] Shamar Pacheco MD [address] [place] [address] Care Social History Tobacco Use Types Packs/Day Years [...] on file Legal Sex Female 3:17 AM SOCIAL SERVICE DIRECTOR Gender Identity Not on file Sexual Orientation Not on file 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 Manisha Sandoval BEHAVIOR ANALYST AL SERVICE DIRECTOR documented in this encounter Plan of Treatment Upcoming Encounters Date Type Department Care Team (Late st Contact Info) Description 08/21/2024 10:00 AM SOCIAL SERVICE DIRECTOR Virtual Visit [facility] Diabetes Education [address] [place] [phone] Flor Joseph [address] [place] [address] 09/08/2024 2:15 PM CDT Appointment [facility] Maternal Medicine [facility] [address] [place] [address] Kenya Keating MD [address] [place] [address] [place], [place] [phone] 09/08/2024 2:45 PM CDT Office Visit [facility] Maternal Medicine [facility] [address] [place] [phone] Kenya Keating MD [address] [place] [address] [place] [address] 09/16/2024 3:30 PM CDT Office Visit [facility] [address] [facility] [address] [place] [address] Shamar Pacheco MD [address] [place] [address] 09/17/2024 2:30 PM CDT Virtual Visit [facility] Endocrinology [place] 124849 [facility] 3rd [place] [phone] Renée Alanis PA-C [address] 56[address] 09/22/2024 2:[address] [facility] Heart Care [facility] [place] [address] Kenya Keating MD [address] [place] [address] 400 [place] [address] 10/13/2024 3:30 PM CDT Office Visit [facility] [address] [facility] [address] [place] [address] Shamar Pacheco MD [address] [place] [address] 10/16/2024 2:30 PM CDT Virtual Visit [facility] Endocrinology Clinic [place] 909 [facility] 3rd [place] [phone] Renée Alanis PA-C [address] [address] 11/10/2024 3:45 PM CDT Office Visit [facility] Women's Clinic [place] [address] [place] [address] Shamar Pacheco MD [address] [place] [address] 11/19/2024 2:30 PM CDT Virtual Visit [facility] Endocrinology [address] [phone] Renée Alanis PA-C [address] [address] 12/17/2024 2:30 PM CDT Virtual Visit [facility] Endocrinology [address] [phone] Renée Alanis PA-C [address] [address] 01/07/2025 1:30 PM CDT Virtual Visit [facility] Endocrinology [address] [phone] Renée Alanis PA-C [address] [address] 01/11/2025 7:30 AM CDT Hospital Encounter [facility] Birthplace [address] [place] [address] Shamar Pacheco MD [address] [place] [address] Modified White class B pregestational diabetes mellitus (Primary Dx); Multigravida of advanced maternal age in first trimester; Previous delivery, antepartum condition or complication 01/11/2025 7:30 AM CDT - 01/11/2025 9:[address] [facility] Birthplace [address] [place] [address] Shamar Pacheco MD [address] [place] [address] REPEAT SECTION Scheduled Procedures Name Priority Associated Diagnoses Date/Ti me SECTION Modified White class B pregestational diabetes mellitus Multigravida of advanced maternal age in first trimester Previous delivery, antepartum condition or complication 01/11/2025 7:30 AM CDT documented as of this encounter Results * Urine Culture Aerobic Bacterial - lab collect (09/03/2022 4:02 PM CDT) Culture 10,000-50,000 CFU/mL Mixture of urogenital sheila THERON 09/05/2022 6:23 AM CDT [facility] Urine MID-STREAM URINE SPECIMEN / Unknown Non-blood Collection / Unknown 09/03/2022 4:02 PM CDT 09/03/2022 4:02 PM CDT us Shamar Pacheco MD LAB - MICRO GENERAL OR DERABLES Final Result [facility] Inf. Diseases Diag. Lab [address] [facility], [address] [place], [place] [phone], [facility] [phone] * Rubella Antibody IgG (09/03/2022 3:33 PM CDT) Rubella Licha IgG Instrument Value 1.62 <0.90 Index 09/04/2022 5:17 PM CDT SPECIALTY CORE/PROT/END O Rubella Antibody IgG Positive 09/04/2022 5:17 PM CDT SPECIALTY CORE/PROT/END O Comment:Suggests previous ex posure or immunization and probable immunity. Blood STRUCTURE OF LEFT UPPER LIMB / Unknown Venipuncture / Unknown 09/03/2022 3:33 PM CDT 09/03/2022 3:33 PM CDT us Shamar Pacheco MD LAB - BLOOD ORDERABLES Final Result [facility] SPECIALTY CORE/PROT/ENDO [facility] Specialty Core/Prot/Endo [address] [facility] [address], [address] [address], [facility] [phone] * CBC with platelets (09/03/2022 3:33 PM CDT) WBC Count 9.1 4.0 - 11.0 10e3/uL 09/03/2022 3:38 PM CDT [facility] RBC Count 4.53 3.80 - 5.20 10e6/uL 09/03/2022 3:38 PM CDT [facility] Hemoglobin 12.5 11.7 - 15.7 g/dL 09/03/2022 3:38 PM CDT [facility] Hematocrit 37.8 35.0 - 47.0 % 09/03/2022 3:38 PM CDT [facility] MCV 83 78 - 100 fL 09/03/2022 3:38 PM CDT [facility] MCH 27.6 26.5 - 33.0 pg 09/03/2022 3:38 PM CDT [facility] MCHC 33.1 31.5 - 36.5 g/dL 09/03/2022 3:38 PM CDT [facility] RDW 13.3 10.0 - 15.0 % 09/03/2022 3:38 PM CDT [facility] Platelet Count 450 150 - 450 10e3/uL 09/03/2022 3:38 PM CDT [facility] Blood STRUCTURE OF LEFT UPPER LIMB / Unknown Venipuncture / Unknown 09/03/2022 3:33 PM CDT 09/03/2022 3:33 PM CDT us Shamar Pacheco MD LAB - BLOOD ORDERABLES Final Result [facility] [address], [address] [place] [address], [place] [phone] * Treponema Abs w Reflex to RPR and Titer (09/03/2022 3:33 PM CDT) Treponema Antibody Total Nonreactive Nonreactive 09/04/2022 5:14 PM CDT [facility] SPECIALTY CORE/PROT/EN DO Blood STRUCTURE OF LEFT UPPER LIMB / Unknown Venipuncture / Unknown 09/03/2022 3:33 PM CDT 09/03/2022 3:33 PM CDT Shamar Pacheco MD LAB - BLOOD ORDERABLES Final Result [facility] SPECIALTY CORE/PROT/ENDO UM Specialty Core/Prot/Endo [address] [facility] [address], [address] [address], [facility] [phone] * Hepatitis C antibody (09/03/2022 3:33 PM CDT) Hepatitis C Antibody Nonreactive Nonreactive 09/04/2022 5:55 PM CDT UM SPECIALTY CORE/PROT/EN DO Blood STRUCTURE OF LEFT UPPER LIMB / Unknown Venipuncture / Unknown 09/03/2022 3:33 PM CDT 09/03/2022 3:33 PM CDT Narrative [facility] SPECIALTY CORE/PROT/ENDO - 09/04/2022 5:55 PM CDT Assay performance characteristics have not been established for newborns, infants, and children. Shamar Pacheco MD LAB - BLOOD ORDERABLES Final Result [facility] SPECIALTY CORE/PROT/ENDO Specialty Core/Prot/Endo [address] [facility] [address] Building, Room [address] [place] [address], [facility] [phone] * Hepatitis B surface antigen (09/03/2022 3:33 PM CDT) Hepatitis B Surface Antigen Nonreactive Nonreactive 09/04/2022 5:55 PM CDT UM SPECIALTY CORE/PROT/EN DO Blood STRUCTURE OF LEFT UPPER LIMB / Unknown Venipuncture / Unknown 09/03/2022 3:33 PM CDT 09/03/2022 3:33 PM CDT us Shamar Pacheco MD LAB - BLOOD ORDERABLES Final Result UM SPECIALTY CORE/PROT/ENDO UM Specialty Core/Prot/Endo [address] [facility], Room [address] [place] [address], [facility] [phone] * HIV Antigen Antibody Combo (09/03/2022 3:33 PM CDT) Pathologist [facility] HIV Antigen Antibody Combo Nonreactive Nonreactive 09/04/2022 5:55 PM CDT UM SPECIALTY CORE/PROT/EN DO Comment:HIV-1 p24 Ag & HIV-1 /HIV-2 Ab Not Detected Blood STRUCTURE OF LEFT UPPER LIMB / Unknown Venipuncture / Unknown 09/03/2022 3:33 PM CDT 09/03/2022 3:33 PM CDT us Shamar Pacheco MD LAB - BLOOD ORDERABLES Final Result UM SPECIALTY CORE/PROT/ENDO UM Specialty Core/Prot/Endo [address] [facility], [address] [address], [facility] [phone] documented in this encounter Visit Diagnoses Diagnosis Supervision of normal - Primary Supervision of other normal Modified White class B pregestational diabetes mellitus- [...] documented as of this encounter Care Teams Fundraising Consultant Relationship Specialty Start Date End Date [facility] [address] [place] [address] PCP - General 03/22/17 Shamar Pacheco MD [address] [place] [address] Assigned OBGYN Provider 10/09/[address] [address] Family Service Aide Dietitian, Registered 10/16/[address] [address] Family Service Aide Dietitian, Registered 11/02/21 Fiona Conrad [address] [place] [address] Family Service Aide Dietitian, Registered 01/23/23 Clinic - Fidel Garrido [address] [address] Assigned PCP 07/18/23 03/15/24 Atif Garcia MD [address] [address] plant specialist 05/01/24 Dina Perez PA-C [address] [place] [address] Physician Public Relations Intern Endocrinology, Diabetes, and Metabolism 06/02/24 Tiffani Farmer MD [address] [place] [address] 101 [place] [address] Assigned Endocrinology Provider 06/15/24 Cydney Olivarez Lori Community Health Worker 08/13/2408/14 documented as of this encounter
--- OUTSIDE RECORDS SUMMARY | 2024-08-18 20:28 | XMS_ITS | Encounter Summary ---
Author Organization [place] Address [address] [facility] [place] [address] Care Team Providers Care Travel Administrator Name Role Phone [facility], [facility] Primary Care Provider Shamar Pacheco MD Unavailable Kellen Duran RD Unavailable [phone] Unavailable Unavailable Fiona Conrad Unavailable [facility] - Fidel Garrido [facility] Unavailable Atif Garcia MD Unavailable [phone] Dina Perez PA-C Unavailable Tiffani Farmer MD Unavailable [phone] Cydney Olivarez Unavailable [phone] Encounter Details Date Type Department Care Team (Late st Contact Info) Description 12/21/2022 MyC Medical Advice [facility] [address] [place] [address] [place] [address] Yasemin Wong, EMRE Social History Tobacco Use Types Packs/Day Years [...] on file 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 No / Unsure 12/06/2022 2:25 PM CDT documented as of this encounter Plan of Treatment Upcoming Encounters Date Type Department Care Team (Late st Contact Info) Description 08/21/2024 10:00 AM ELECTRIC LOCOMOTIVE CRANE OPERATOR Virtual Visit [facility] Diabetes Education [address] [place] [address] Flor Joseph [address] [place] [address] [phone] 09/08/2024 2:15 PM CDT Appointment [facility] [place] [address] [place] [phone] Kenya Keating MD [address] [place] [address] [place] [address] 09/08/2024 2:45 PM CDT Office Visit [facility] [place] [address] [place] [phone] Kenya Keating MD [address] [place] [address] [place], [place] [address] 09/16/2024 3:30 PM CDT Office Visit [facility] [place] [address] [place] [address] [place] [phone] Shamar Pacheco MD [address] [place] [address] 09/17/2024 2:30 PM CDT Virtual Visit [facility] Endocrinology Clinic [place] [address] [phone] Renée Alanis PA-C [address] [place] [address] [place] [address] 2364[address] 09/22/2024 2:00 PM CDT Appointment [facility] Heart Care [address]50 [place] [phone] Kenya Keating MD [address] [place] [address] 400 [place] [address] 10/13/2024 3:30 PM CDT Office Visit [address] [phone] Shamar Pacheco MD [address] [place] [address] 10/16/2024 2:30 PM CDT Virtual Visit [facility] Endocrinology [address] [phone] Renée Alanis PA-C [address] [place] [address] 11/10/2024 3:45 PM CDT Office Visit [address] [phone] Shamar Pacheco MD [address] [place] [address] 11/19/2024 2:30 PM CDT Virtual Visit [facility] Endocrinology Clinic [address] [phone] Renée Alanis PA-C [address] [address] 12/17/2024 2:30 PM CDT Virtual Visit [facility] Endocrinology Clinic [address] [phone] Renée Alanis PA-C [address] [address] 01/07/2025 1:30 PM CDT Virtual Visit [facility] Endocrinology [address] [phone] Renée Alanis PA-C [address] [address] 01/11/2025 7:30 AM CDT Hospital Encounter [facility] [address] [place] [address] Shamar Pacheco MD [address] [place] [address] Modified White class B pregestational diabetes mellitus (Primary Dx); Multigravida of advanced maternal age in first trimester; Previous delivery, antepartum condition or complication 01/11/2025 7:30 AM CDT - 01/11/2025 9:00 AM CDT Surgery [facility] [address] [place] [address] Shamar Pahceco MD [address] [place] [address] REPEAT SECTION Scheduled Procedures Name Priority Associated [...] documented as of this encounter Care Teams Travel Administrator Relationship Specialty Start Date End Date [facility], [facility] [address] [place] [address] PCP - General 03/22/17 Shamar Pacheco MD [address] [place] [address] Assigned OBGYN Provider 10/09/[address] [address] Batch Blender Dietitian, Registered 10/16/[address] [address] Batch Blender Dietitian, Registered 11/02/21 Fiona Conrad [address] [place] [address] Batch Blender Dietitian, Registered 01/23/23 Clinic - Fidel Garrido [address] [address] Assigned PCP 07/18/23 03/15/24 Atif Garcia MD [address] [address] aquatic physiotherapist 05/01/24 Dina Perez PA-C [address] [place] [address] Physician [place] Laborer Endocrinology, Diabetes, and Metabolism 06/02/24 Tiffani Farmer MD [address] [place] [address] [address] [place] [address] Assigned Endocrinology Provider 06/15/24 Cydney Olivarez CHW Community Health Worker 08/13/2408/14 documented as of this encounter
--- OUTSIDE RECORDS SUMMARY | 2024-08-18 20:28 | XMS_ITS | Encounter Summary ---
Author Organization [place] Address [facility] [place] [address] Care Team Providers Care Rubber Washer Name Role Phone Clinic, [facility] Primary Care Provider Shamar Pacheco MD Unavailable Kellen Duran RD Unavailable [phone] Unavailable Unavailable Fiona Conrad Unavailable Atif Garcia MD Unavailable [phone] Dina Perez PA-C Unavailable Tiffani Farmer MD Unavailable [phone] Cydney Olivarez Unavailable [phone] Encounter Details Date Type Department Care Team (Late st Contact Info) Description 06/03/2024 [facility] Medical Advice [facility] Diabetes Education [address] [place] [address] Flor Joseph [address] [place] [address] Social History Tobacco Use Types Packs/Day Years Used Date Smoking Tobacco: Never Smokeless Tobacco: Never Alcohol Use Standard Drinks/Week Comments Not Currently 0 (1 standard drink = 0.6 oz pur e alcohol) PHQ-2 Answer Date Recorded PHQ-2 Score 0 06/03/2024 [place] Depression Scale Answer Date Recorded Last EPDS [...] on file 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 Gender Identity Not on file Sexual Orientation Not on file 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 office Not on file Not on file Not on file documented as of this encounter Plan of Treatment Upcoming Encounters Date Type Department Care Team (Late st Contact Info) Description 08/21/2024 10:00 AM JEWELRY ENAMELER Virtual Visit [facility] Diabetes Education [address] [place] [address] Flor Joseph [address] [place] [address] 09/08/2024 2:15 PM CDT Appointment [facility] Maternal Medicine [facility] [address] [place] [phone] Kenya Keating MD [address] [address] 09/08/2024 2:45 PM CDT Office Visit [facility] Maternal Medicine Center [place] [address] [place] [phone] Kenya Keating MD [address] [address] 09/16/2024 3:30 PM CDT Office Visit [facility] Women's Clinic [place] [address] [place] [address] [place] [address] Shamar Pacheco MD [address] [place] [address] 09/17/2024 2:30 PM CDT Virtual Visit [facility] Endocrinology Clinic [address] [place] [phone] Renée Alanis PA-C [address] [place] [address] 09/22/2024 2:[address] [facility] Heart Care 2450 [place] [phone] Kenya Keating MD [address] [place] [address] 400 [place], [place] 9[address] 10/13/2024 3:30 PM CDT Office Visit [facility] [address] [place] [address] [phone] Shamar Pacheco MD [address] [place] [address] 10/16/2024 2:30 PM CDT Virtual Visit [facility] Endocrinology Clinic [address] [phone] Renée Alanis PA-C [address] [address] 11/10/2024 3:45 PM CDT Office Visit [facility] [address] [place] [phone] Shamar Pacheco MD [address] [place] [address] 11/19/2024 2:30 PM CDT Virtual Visit [facility] Endocrinology Clinic [address] [phone] Renée Alanis PA-C [address] [address] 12/17/2024 2:30 PM CDT Virtual Visit [facility] Endocrinology Clinic [address] [phone] Renée Alanis PA-C [address] [address] 01/07/2025 1:30 PM CDT Virtual Visit [facility] Endocrinology [address] [phone] Renée Alanis PA-C [address] [address] 01/11/2025 7:30 AM CDT Hospital Encounter [facility] [address] [place] [address] Shamar Pacheco MD [address] [place] [address] Modified White class B pregestational diabetes mellitus (Primary Dx); Multigravida of advanced maternal age in first trimester; Previous delivery, antepartum condition or complication 01/11/2025 7:30 AM CDT - 01/11/2025 9:00 AM CDT Surgery [facility] [address] [place] [address] Shamar Pacheco MD [address] [place] [address] REPEAT SECTION Scheduled Procedures Name Priority Associated [...] documented as of this encounter Care Teams Rubber Washer Relationship Specialty Start Date End Date [facility], [address] [address] PCP - General 03/22/17 Shamar Pacheco MD [address] [place] [address] Assigned OBGYN Provider 10/09/[address] [address] Technical Adjuster Dietitian, Registered 10/16/[address] [address] Technical Adjuster Dietitian, Registered 11/02/21 Fiona Conrad [address] [place] [address] Technical Adjuster Dietitian, Registered 01/23/23 Atif Garcia MD [address] [address] bottle dealer 05/01/24 Dian Perez PA-C 500 [place] [address] Physician Manager Agency Endocrinology, Diabetes, and Metabolism 06/02/24 Tiffani Farmer MD 420 [facility] 101 [place], [place] 9[address]375 Assigned Endocrinology Provider 06/15/24 Cydney Olivarez Lori Community Health Worker 08/13/2408/14 documented as of this encounter
--- OUTSIDE RECORDS SUMMARY | 2024-08-18 20:28 | XMS_ITS | Encounter Summary ---
Author Organization [place] Address [facility] access hospital0 [facility] [address] Care Team Providers Care Cabinet Installer Name Role Phone Clinic, [facility] Primary Care Provider Shamar Pacheco MD Unavailable Kellen Duran RD Unavailable [phone] Unavailable Unavailable Fiona Conrad Unavailable Atif Garcia MD Unavailable [phone] Dina Perez PA-C Unavailable Tiffani Farmer MD Unavailable [phone] Cydney Olivarez Unavailable [phone] Encounter Details Date Type Department Care Team (Late st Contact Info) Description 06/26/2024 [facility] Medical Advice [facility] Diabetes Education [address] [place] [address] Flor Joseph [address] [place] [address] [phone] Social History Tobacco Use Types Packs/Day Years Used Date Smoking Tobacco: Never Smokeless Tobacco: Never Alcohol Use Standard Drinks/Week Comments Not Currently 0 (1 standard drink = 0.6 oz pur e alcohol) PHQ-2 Answer Date Recorded PHQ-2 Score 0 06/03/2024 [place] Depression Scale Answer Date Recorded Last EPDS [...] on file 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 Gender Identity Not on file Sexual Orientation Not on file 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 office Not on file Not on file Not on file documented as of this encounter Plan of Treatment Upcoming Encounters Date Type Department Care Team (Late st Contact Info) Description 08/21/2024 10:00 AM WOODWORKING MACHINE OPERATOR Virtual Visit [facility] Diabetes Education [address] [place] [address] Flor Joseph [address] [place] [address] 09/08/2024 2:15 PM CDT Appointment [facility] Maternal Medicine [facility] [address] [place] [phone] Kenya Keating MD [address] [address] 7545[address] 09/08/2024 2:45 PM CDT Office Visit [facility] Maternal Medicine Center [place] [address] [place] [phone] Kenya Keating MD [address] [address] 09/16/2024 3:30 PM CDT Office Visit [facility] Women's Clinic [place] [address] [place] [address] [place] [address] Shamar Pacheco MD [address] [place] [address] 09/17/2024 2:30 PM CDT Virtual Visit [facility] Endocrinology Clinic [address] [place] [phone] Renée Alanis PA-C [address] [place] [address] 09/22/2024 2:00 PM CDT Appointment [facility] Heart Care [address] [place] [phone] Kenya Keating MD [address] [place] [place] [address] 400 [place], [place] 867234 10/13/2024 3:30 PM CDT Office Visit [facility] [address] [place] [address] [phone] Shamar Pacheco MD [address] [place] [address] 10/16/2024 2:30 PM CDT Virtual Visit [facility] Endocrinology Clinic [address] [phone] Renée Alanis PA-C [address] [address] 11/10/2024 3:45 PM CDT Office Visit [facility] [address] [place] [address] [place] [phone] Shamar Pacheco MD [address] [place] [address] 11/19/2024 2:30 PM CDT Virtual Visit [facility] Endocrinology Clinic [address] [phone] Renée Alanis PA-C [address] [address] 12/17/2024 2:30 PM CDT Virtual Visit [facility] Endocrinology Clinic [address] [phone] Renée Alanis PA-C [address] [address] 01/07/2025 1:30 PM CDT Virtual Visit [facility] Endocrinology [address] [phone] Renée Alanis PA-C [address] [address] 01/11/2025 7:30 AM CDT Hospital Encounter [facility] [address] [place] [address] Shamar Pacheco MD [address] [place] [address] Modified White class B pregestational diabetes mellitus (Primary Dx); Multigravida of advanced maternal age in first trimester; Previous delivery, antepartum condition or complication 01/11/2025 7:30 AM CDT - 01/11/2025 9:00 AM CDT Surgery [facility] [address] [place] [address] Shamar Pacheco MD [address] [place] [address] REPEAT SECTION Scheduled Procedures Name Priority Associated [...] documented as of this encounter Care Teams Cabinet Installer Relationship Specialty Start Date End Date [facility], [address] [address] PCP - General 03/22/17 Shamar Pacheco MD [address] [place] [address] Assigned OBGYN Provider 10/09/[address] [address] Tube Cutter Operator Dietitian, Registered 10/16/[address] [address] Tube Cutter Operator Dietitian, Registered 11/02/21 Fiona Conrad [address] [place] [address] Tube Cutter Operator Dietitian, Registered 01/23/23 Atif Garcia MD [address] [address] motion graphics designer 05/01/24 Dina Perez PA-C [address] [place] [address] Physician Permit Coordinator Endocrinology, Diabetes, and Metabolism 06/02/24 Tiffani Farmer MD 420 [facility] 101 [place], [place] 365405 Assigned Endocrinology Provider 06/15/24 Cydney Olivarez Lori Community Health Worker 08/13/2408/14 documented as of this encounter
--- OUTSIDE RECORDS SUMMARY | 2024-08-18 20:28 | XMS_ITS | Encounter Summary ---
Author Organization [place] Address [address] [facility] [place] [address] Care Team Providers Care Mold Builder Name Role Phone [facility], [facility] Primary Care Provider Shamar Pacheco MD Unavailable [phone] Unavailable [phone] Unavailable Unavailable Fiona Conrad Unavailable [phone] Clinic - [facility] Unavailable Atif Garcia MD Unavailable [phone] Dina Perez PA-C Unavailable Tiffani Farmer MD Unavailable [phone] Cydney Olivarez Unavailable [phone] Encounter Details Date Type Department Care Team (Late st Contact Info) Description 09/25/2022 MyC Medical Advice [facility] [address] [facility] [address] [place] [address] Meche Bryant RN Social History Tobacco Use Types Packs/Day [...] on file 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 Gender Identity Not on file Sexual Orientation [...] st Contact Info) Description 08/21/2024 10:00 AM CAGE TENDER Virtual Visit [facility] Diabetes Education [address] [place] [phone] Flor Joseph [address] [place] [address] 09/08/2024 2:15 PM CDT Appointment [facility] Maternal Medicine Center [place] [address] [facility] [address] [place] [address] Kenya Keating MD [address] [place] [address] [place], [place] [address] 09/08/2024 2:45 PM CDT Office Visit [facility] Medicine [facility] [place] [address] [facility] [address] [place] [phone] Kenya Keating MD [address] [place] [address] [place], [place] [address] 09/16/2024 3:30 PM CDT Office Visit [facility] Women's Clinic [place] [address] [place] [address] [place] [phone] Shamar Pacheco MD [address] [place] [address] 09/17/2024 2:30 PM CDT Virtual Visit [facility] Endocrinology Clinic [place] [phone] [address] [phone] Renée Alanis PA-C [address] [place] [address] 09/22/2024 2:00 PM CDT Appointment [facility] Heart Care [address] [place] [phone] Kenya Keating MD [address] [place] [address] 400 [place] [address] 10/13/2024 3:30 PM CDT Office Visit [address] [phone] Shamar Pacheco MD [address] [place] [address] 10/16/2024 2:30 PM CDT Virtual Visit [facility] Endocrinology [place] [phone] [address] [phone] Renée Alanis PA-C [address] [place] [address] 11/10/2024 3:45 PM CDT Office Visit [facility] [address] [facility] [address] [place] [phone] Shamar Pacheco MD [address] [place] [address] 11/19/2024 2:30 PM CDT Virtual Visit [facility] Endocrinology Clinic [address] [phone] Renée Alanis PA-C 420 [facility] [address] [place] [address] 12/17/2024 2:30 PM CDT Virtual Visit [facility] Endocrinology Clinic [address] [place] [phone] Renée Alanis PA-C 420 [facility] [address] [place] [address] 01/07/2025 1:30 PM CDT Virtual Visit [facility] Endocrinology [address] [phone] Renée Alanis PA-C [address] [place] [address] 01/11/2025 7:30 AM CDT Hospital Encounter [facility] [address] [place] [address] Shamar Pacheco MD [address] [place] [address] Modified White class B pregestational diabetes mellitus (Primary Dx); Multigravida of advanced maternal age in first trimester; Previous delivery, antepartum condition or complication 01/11/2025 7:30 AM CDT - 01/11/2025 9:00 AM CDT Surgery [facility] [address] [place] [address] Shamar Pacheco MD [address] [place] [address] REPEAT SECTION Scheduled Procedures Name Priority Associated [...] documented as of this encounter Care Teams Mold Builder Relationship Specialty Start Date End Date [facility], [facility] [address] [place] [address] PCP - General 03/22/17 Shamar Pacheco MD [address] [place] [address] Assigned OBGYN Provider 10/09/[address] [address] Senior Care Assistant Dietitian, Registered 10/16/[address] [address] Senior Care Assistant Dietitian, Registered 11/02/21 Fiona Conrad [address] [place] [address] Senior Care Assistant Dietitian, Registered 01/23/23 Clinic - [facility]idel Garrido [address] [address] Assigned PCP 07/18/23 03/15/24 Atif Garcia MD [address] [address] member of technical staff 05/01/24 Dina Perez PA-C [address] [place] [address] Physician Hair Dryer Endocrinology, Diabetes, and Metabolism 06/02/24 Tiffani Farmer MD [address] [place] [address] [address] [place] [address] Assigned Endocrinology Provider 06/15/24 Cydney Olivarez CHW Community Health Worker 08/13/2408/14 documented as of this encounter
--- OUTSIDE RECORDS SUMMARY | 2024-08-18 20:28 | XMS_ITS | Encounter Summary ---
Author Organization [place] Address Formerly [facility], [facility] [address] Care Team Providers Care Manager Disaster Recovery Name Role Phone [facility] Primary Care Provider Shamar Pacheco MD Unavailable [phone] Unavailable [phone] Unavailable Unavailable Fiona Conrad Unavailable Atif Garcia MD Unavailable [phone] Dina Perez PA-C Unavailable Tiffani Farmer MD Unavailable [phone] Cydney Olivarez Unavailable [phone] Encounter Details Date Type Department Care Team (Late st Contact Info) Description 06/12/2024 [facility] Medical Advice [facility] Endocrinology Clinic [address] [place] [address] [facility] Social History Tobacco Use Types Packs/Day Years Used Date Smoking Tobacco: Never Smokeless Tobacco: Never Alcohol Use Standard Drinks/Week Comments Not Currently 0 (1 standard drink = 0.6 oz pur e alcohol) PHQ-2 Answer Date Recorded PHQ-2 Score 0 06/03/2024 [place] Depression Scale Answer Date Recorded Last EPDS [...] on file 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 Gender Identity Not on file Sexual Orientation Not on file 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 office Not on file Not on file Not on file documented as of this encounter Plan of Treatment Upcoming Encounters Date Type Department Care Team (Late st Contact Info) Description 08/21/2024 10:00 AM NEIGHBORHOOD COORDINATOR Virtual Visit [facility] Diabetes Education [address] [place] [address] Flor Joseph [address] [place] [address] 09/08/2024 2:15 PM CDT Appointment [facility] [place] [address] [place] [phone] Kenya Keating MD [address] [place], [place] [address] 09/08/2024 2:45 PM CDT Office Visit [facility] [place] [address] [place] [phone] Kenya Keating MD [address] [place], [place] [address] 09/16/2024 3:30 PM CDT Office Visit [facility] Women's Clinic [place] [address] [place] [phone] Shamar Pacheco MD [address] [place] [address] 09/17/2024 2:30 PM CDT Virtual Visit [facility] Endocrinology Clinic [place] [address] [phone] Renée Alanis PA-C [address] [place] [address] 09/22/2024 2:00 PM CDT Appointment [facility] Heart Care [address] [place] [phone] Kenya Keating MD [address] [place] [address] 400 [place] [address] 10/13/2024 3:30 PM CDT Office Visit [address] [phone] Shamar Pacheco MD [address] [place] [address] 10/16/2024 2:30 PM CDT Virtual Visit [facility] Endocrinology [address] [phone] Renée Alanis PA-C [address] [place] [address] 11/10/2024 3:45 PM CDT Office Visit [facility] [address] [facility] [address] [place] [phone] Shamar Pacheco MD [address] [place] [address] 11/19/2024 2:30 PM CDT Virtual Visit [facility] Endocrinology Clinic [address] [phone] Renée Alanis PA-C [address] [address] 12/17/2024 2:30 PM CDT Virtual Visit [facility] Endocrinology Clinic [place] [address] [place] [phone] Renée Alanis PA-C 420 [facility] [address] [place] [address] 01/07/2025 1:30 PM CDT Virtual Visit [facility] Endocrinology [address] [phone] Renée Alanis PA-C [address] [place] [address] 01/11/2025 7:30 AM CDT Hospital Encounter [facility] [address] [place] [address] Shamar Pacheco MD [address] [place] [address] Modified White class B pregestational diabetes mellitus (Primary Dx); Multigravida of advanced maternal age in first trimester; Previous delivery, antepartum condition or complication 01/11/2025 7:30 AM CDT - 01/11/2025 9:00 AM CDT Surgery [facility] [address] [place] [address] Shamar Pacheco MD [address] [place] [address] REPEAT SECTION Scheduled Procedures Name Priority Associated [...] documented as of this encounter Care Teams Manager Disaster Recovery Relationship Specialty Start Date End Date Clinic, [address] [address] PCP - General 03/22/17 Shamar Pacheco MD [address] [place] [address] Assigned OBGYN Provider 10/09/[address] [address] Unix Developer Dietitian, Registered 10/16/[address] [address] Unix Developer Dietitian, Registered 11/02/21 Fiona Conrad [address] [place] [address] Unix Developer Dietitian, Registered 01/23/23 Atif Garcia MD [address] [address] loan representative 05/01/24 Dina Perez PA-C [address] [place] [address] Physician Plate Molder Endocrinology, Diabetes, and Metabolism 06/02/24 Tiffani Farmer MD [address] [place] [address] Assigned Endocrinology Provider 06/15/24 Cydney Olivarez CHW Community Health Worker 08/13/2408/14 documented as of this encounter
--- OUTSIDE RECORDS SUMMARY | 2024-08-18 20:28 | XMS_ITS | Encounter Summary ---
Author Organization [place] Address [address] [facility] [place] [address] Care Team Providers Care Paving Crew Foreman Name Role Phone [facility], [facility] Primary Care Provider Shamar Pacheco MD Unavailable Kellen Duran RD Unavailable [phone] Unavailable Unavailable Fiona Conrad Unavailable [facility], [facility] Unavailable Atif Garcia MD Unavailable [phone] Dina Perez PA-C Unavailable Tiffani Farmer MD Unavailable [phone] Cydney Olivarez Unavailable [phone] Encounter Details Date Type Department Care Team (Late st Contact Info) Description 11/03/2021 MyC Medical Advice [facility] [address] [facility] [place] [address] [place] [address] Social History Tobacco Use Types Packs/Day Years [...] on file 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 No / Unsure 11/01/2021 12:48 PM CDT documented as of this encounter Plan of Treatment Upcoming Encounters Date Type Department Care Team (Late st Contact Info) Description 08/21/2024 10:00 AM RESEARCH INSTRUCTOR Virtual Visit [facility] Diabetes Education [address] [place] [phone] Flor Joseph [address] [place] [address] 09/08/2024 2:15 PM CDT Appointment [facility] Maternal Medicine [facility] [place] [address] [place] [phone] Kenya Keating MD [address] 703[address] 09/08/2024 2:45 PM CDT Office Visit [facility] [place] [address] [place] [phone] Kenya Keating MD [address] [place] [address] [place], [place] [phone] 09/16/2024 3:30 PM CDT Office Visit [facility] Women's Clinic [place] [address] [place] [phone] Shamar Pacheco MD [address] [place] [address] 09/17/2024 2:30 PM CDT Virtual Visit [facility] Endocrinology Clinic [place] 00[address] [phone] Renée Alanis PA-C [address] [place] [address] [place] [address] 09/22/2024 2:00 PM CDT Appointment [facility] Heart Care [address] [place] [phone] Kenya Keating MD [address] [place] [address] 10/13/2024 3:30 PM CDT Office Visit [address] [phone] Shamar Pacheco MD [address] [place] [address] 10/16/2024 2:30 PM CDT Virtual Visit [facility] Endocrinology [address] [phone] Renée Alanis PA-C [address] [place] [address] 11/10/2024 3:45 PM CDT Office Visit [facility] 303 [facility] [address] [place] [phone] Shamar Pacheco MD [address] [place] [address] 11/19/2024 2:30 PM CDT Virtual Visit [facility] Endocrinology Clinic [address] [place] [phone] Renée Alanis PA-C [address] [address] 12/17/2024 2:30 PM CDT Virtual Visit [facility] Endocrinology Clinic [place] [address] [place] [address] [phone] Renée Alanis PA-C [address] [address] 01/07/2025 1:30 PM CDT Virtual Visit [facility] Endocrinology Clinic [address] [phone] Renée Alanis PA-C [address] [address] 01/11/2025 7:30 AM CDT Hospital Encounter [facility] [address] [place] [address] Shamar Pacheco MD [address] [place] [address] Modified White class B pregestational diabetes mellitus (Primary Dx); Multigravida of advanced maternal age in first trimester; Previous delivery, antepartum condition or complication 01/11/2025 7:30 AM CDT - 01/11/2025 9:00 AM CDT Surgery [facility] [address] [place] [address] Shamar Pacheco MD [address] [place] [address] REPEAT SECTION Scheduled Procedures Name Priority Associated Diagnoses Date/Ti me SECTION Modified White class B pregestational diabetes mellitus Multigravida of advanced maternal age in first trimester Previous delivery, antepartum condition or complication 01/11/2025 7:30 AM CDT documented as of this encounter Visit Diagnoses Not on filedocumented in this encounter Additional Health Concerns Assessment Noted Time PHQ-9 Depression Total Score: 0 05/31/20 7:03 AM RESEARCH INSTRUCTOR documented as of this encounter Care Teams Paving Crew Foreman Relationship Specialty Start Date End Date [facility], [facility] [address] [place] [address] PCP - General 03/22/17 Shamar Pacheco MD [address] [place] [address] Assigned OBGYN Provider 10/09/[address] [address] Regulatory Affairs Specialist Dietitian, Registered 10/16/[address] [address] Regulatory Affairs Specialist Dietitian, Registered 11/02/21 Fiona Conrad [address] [place] [address] Regulatory Affairs Specialist Dietitian, Registered 01/23/23 [facility] - [facility] [address] [address] Assigned PCP 07/18/23 03/15/24 Atif Garcia MD [address] [address] media sales executive 05/01/24 Dina Perez PA-C [address] [place] [address] Physician Recruitment Manager Endocrinology, Diabetes, and Metabolism 06/02/24 Tiffani Farmer MD [address] [address] Assigned Endocrinology Provider 06/15/24 Cydney Olivarez CHW Community Health Worker 08/13/2408/14 documented as of this encounter
--- OUTSIDE RECORDS SUMMARY | 2024-08-18 20:28 | XMS_ITS | Encounter Summary ---
Author Organization [place] Address 24[address] [facility] [place] [address] Care Team Providers Care Donor Services Team Leader Name Role Phone Clinic, [facility] Primary Care Provider Shamar Pacheco MD Unavailable Kellen Duran RD Unavailable [phone] Unavailable Unavailable Fiona Conrad Unavailable [phone] Atif Garcia MD Unavailable [phone] Dina Perez PA-C Unavailable Tiffani Farmer MD Unavailable [phone] Encounter Details Date Type Department Care Team (Latest Contact Info) Description 08/12/2024 Travel Social History Tobacco Use Types Packs/Day Years Used Date Smoking Tobacco: Never Smokeless Tobacco: Never Alcohol Use Standard Drinks/Week Comments Not Currently 0 (1 standard drink = 0.6 oz pur e alcohol) PHQ-2 Answer Date Recorded PHQ-2 Score 0 08/12/2024 [place] Depression Scale Answer Date Recorded Last EPDS [...] on file 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 Gender Identity Not on file Sexual Orientation Not on file 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 office Not on file Not on file Not on file documented as of this encounter Plan of Treatment Upcoming Encounters Date Type Department Care Team (Late st Contact Info) Description 08/21/2024 10:00 AM WATCHMAKER APPRENTICE Virtual Visit [facility] Diabetes Education [address] [phone] Flor Joseph [address] [place] [address] 409545 09/08/2024 2:15 PM CDT Appointment [facility] Maternal Medicine Center [place] [address] [place] [facility] [address] [place] [phone] Kenya Keating MD [address] [place], [place] [address] 09/08/2024 2:45 PM CDT Office Visit [facility] [place] [address] [place] [phone] Kenya Keating MD [address] [place], [place] 6[address] 09/16/2024 3:30 PM CDT Office Visit [facility] Women's Clinic [place] [address] [place] [address] [place] [phone] Shamar Pacheco MD [address] [place] [address] 09/17/2024 2:30 PM CDT Virtual Visit [facility] Endocrinology Clinic [address] [phone] Renée Alanis PA-C 420 [facility] [address] [place] [place] [address] 09/22/2024 2:00 PM CDT Appointment [facility] Heart Care [address] [place] [phone] Kenya Keating MD [address] [place] [address] 10/13/2024 3:30 PM CDT Office Visit [address] [phone] Shamar Pacheco MD [address] [place] [address] 10/16/2024 2:30 PM CDT Virtual Visit [facility] Endocrinology Clinic [address] [phone] Renée Alanis PA-C [address] [place] [address] 11/10/2024 3:45 PM CDT Office Visit [facility] 303 [facility] [address] [place] [phone] Shamar Pacheco MD [address] [place] [address] 11/19/2024 2:30 PM CDT Virtual Visit [facility] Endocrinology Clinic [address] [phone] Renée Alanis PA-C [address] [place] [address] 12/17/2024 2:30 PM CDT Virtual Visit [facility] Endocrinology Clinic [place] [address] [facility] 3rd [place] [phone] Renée Alanis PA-C 420 [facility] 803 [place] [address] 01/07/2025 1:30 PM CDT Virtual Visit [facility] Endocrinology Clinic [place] [address] [facility] 3rd [place] [phone] Renée Alanis PA-C [address] [address] 01/11/2025 7:30 AM CDT Hospital Encounter [facility] [address] [place] [address] Shamar Pacheco MD [address] [place] [address] Modified White class B pregestational diabetes mellitus (Primary Dx); Multigravida of advanced maternal age in first trimester; Previous delivery, antepartum condition or complication 01/11/2025 7:30 AM CDT - 01/11/2025 9:[address] [facility] [address] [place] [address] Shamar Pahceco MD [address] [place] [address] REPEAT SECTION Scheduled Procedures Name Priority Associated Diagnoses Date/Ti me SECTION Modified White class B pregestational diabetes mellitus Multigravida of advanced maternal age in first trimester Previous delivery, antepartum condition or complication 01/11/2025 7:30 AM CDT documented as of this encounter Visit Diagnoses Not on filedocumented in this encounter Additional Health Concerns Assessment Noted Time PHQ-9 Depression Total Score: 1 08/12/19 25 4:09 PM WATCHMAKER APPRENTICE documented as of this encounter Care Teams Donor Services Team Leader Relationship Specialty Start Date End Date Clinic, [facility] [place] [address] [place] [address] PCP - General 03/22/17 Shamar Pacheco MD [address] [place] [address] Assigned OBGYN Provider 10/09/[address] [address] Website Optimization Strategist Dietitian, Registered 10/16/[address] [address] Website Optimization Strategist Dietitian, Registered 11/02/21 Fiona Conrad [address] [place] [address] Website Optimization Strategist Dietitian, Registered 01/23/23 Atif Garcia MD [address] [place] [address] laser specialist 05/01/24 Dina Perez PA-C [address] [place] [address] 010215 Physician Rn Dialysis Endocrinology, Diabetes, and Metabolism 06/02/24 Tiffani Farmer MD [address] [place] [address] 592375 Assigned Endocrinology Provider 06/15/24 documented as of this encounter
--- OUTSIDE RECORDS SUMMARY | 2024-08-18 20:28 | XMS_ITS | Encounter Summary ---
Author Organization [place] Address [facility] [place] [address] Care Team Providers Care General Contractor Name Role Phone [facility], [facility] Primary Care Provider Shamar Pacheco MD Unavailable Annalisa Luna RD Unavailable Unavailab Kellen Ca RD Unavailable [phone] Unavailable Unavailable Fiona Conrad Unavailable [phone] [facility] Unavailable Atif Garcia MD Unavailable [phone] Dina Perez PA-C Unavailable Tiffani Farmer MD Unavailable [phone] Cydney Olivarez Unavailable [phone] Encounter Details Date Type Department Care Team (Late st Contact Info) Description 10/11/2021 MyC Medical Advice [address] [address] Alondra Box, RD Social History Tobacco Use Types Packs/Day [...] on file 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 No / Unsure 10/06/2021 4:03 PM CDT documented as of this encounter Plan of Treatment Upcoming Encounters Date Type Department Care Team ([facility] st Contact Info) Description 08/21/2024 10:00 AM LICENSED NUCLEAR CONTROL ROOM OPERATOR Virtual Visit [facility] Diabetes Education [address] [place] [phone] [address] Joseph [address] [place] [address] 09/08/2024 2:15 PM CDT Appointment [facility] Maternal Medicine [facility] [place] [address] [place] [phone] Kenya Keating MD [address] [address] 09/08/2024 2:45 PM CDT Office Visit [facility] M[facility] Medicine [facility] [place] [address] [place] [phone] Kenya Keating MD [address] [place], [place] [address]404 09/16/2024 3:30 PM CDT Office Visit [facility] Women's Clinic [place] [address] [place] [phone] Shamar Pacheco MD [address] [place] [address] 09/17/2024 2:30 PM CDT Virtual Visit [facility] Endocrinology Clinic [address] [place] [phone] Renée Alanis PA-C [address] [place] [address] 803 [place], [place] 033645 09/22/2024 2:00 PM CDT Appointment [facility] Children's [facility] Heart Care [address] [place] [phone] Kenya Keating MD [address] [place] [place] [address] 129724 10/13/2024 3:30 PM CDT Office Visit [address] [phone] Shamar Pacheco MD [address] [place] [address] 10/16/2024 2:30 PM CDT Virtual Visit [facility] Endocrinology [address] [phone] Renée Alanis PA-C [address] [place] [address] 11/10/2024 3:45 PM CDT Office Visit [facility] 303 [facility] [address] [place] [phone] Shamar Pacheco MD [address] [place] [address] 11/19/2024 2:30 PM CDT Virtual Visit [facility] Endocrinology Clinic [address] [phone] Renée Alanis PA-C [address] [address] 12/17/2024 2:30 PM CDT Virtual Visit [facility] Endocrinology Clinic [place] [address] [place] [address] [phone] Renée Alanis PA-C [address] 6437[address] 01/07/2025 1:30 PM CDT Virtual Visit [facility] Endocrinology Clinic [address] [phone] Renée Alanis PA-C [address] [address] 01/11/2025 7:30 AM CDT Hospital Encounter [facility] [address] [place] [address] Shamar Pacheco MD [address] [place] [address] Modified White class B pregestational diabetes mellitus (Primary Dx); Multigravida of advanced maternal age in first trimester; Previous delivery, antepartum condition or complication 01/11/2025 7:30 AM CDT - 01/11/2025 9:00 AM CDT Surgery [facility] [address] [place] [address] Shamar Pacheco MD [address] [place] [address] REPEAT SECTION Scheduled Procedures Name Priority Associated Diagnoses Date/Ti me SECTION Modified White class B pregestational diabetes mellitus Multigravida of advanced maternal age in first trimester Previous delivery, antepartum condition or complication 01/11/2025 7:30 AM CDT documented as of this encounter Visit Diagnoses Not on filedocumented in this encounter Additional Health Concerns Assessment Noted Time PHQ-9 Depression Total Score: 0 05/31/20 7:03 AM LICENSED NUCLEAR CONTROL ROOM OPERATOR documented as of this encounter Care Teams General Contractor Relationship Specialty Start Date End Date [facility], [address] [address] PCP - General 03/22/17 Shamar Pacheco MD [address] [place] [address] Assigned OBGYN Provider 10/09/[address] [place] [address] Bridge Tender Dietitian, Registered 10/16/21 11/01/[address] [address] Bridge Tender Dietitian, Registered 10/16/[address] [address] Bridge Tender Dietitian, Registered 11/02/21 Fiona Conrad [address] [place] [address] Bridge Tender Dietitian, Registered 01/23/23 [facility] [address] Assigned PCP 07/18/23 03/15/24 Atif Garcia MD [address] [facility] [place] [address] content architect 05/01/24 Dina Perez PA-C [address] [place] [address] Physician Supervisor Microbiology Technologists Endocrinology, Diabetes, and Metabolism 06/02/24 Tiffani Farmer MD [address] [place] [address] 101 [place] [address] Assigned Endocrinology Provider 06/15/24 Cydney Olivarez CHW Community Health Worker 08/13/2408/14 documented as of this encounter
--- OUTSIDE RECORDS SUMMARY | 2024-08-18 20:28 | XMS_ITS | Encounter Summary ---
Author Organization [place] Address [facility] [place] [address] Care Team Providers Care Graphic Production Artist Name Role Phone Clinic, [facility] Primary Care Provider Shamar Pacheco MD Unavailable [phone] Unavailable [phone] Unavailable Unavailable Fiona Conrad Unavailable Atif Garcia MD Unavailable [phone] Dina Perez PA-C Unavailable Tiffani Farmer MD Unavailable [phone] Cydney Olivarez Unavailable [phone] Encounter Details Date Type Department Care Team (Late st Contact Info) Description 06/11/2024 [facility] Medical Advice [facility] Diabetes Education [address] [place] [address] Flor Joseph [address] [place] [address] Social History Tobacco Use Types Packs/Day Years Used Date Smoking Tobacco: Never Smokeless Tobacco: Never Alcohol Use Standard Drinks/Week Comments Not Currently 0 (1 standard drink = 0.6 oz pur e alcohol) PHQ-2 Answer Date Recorded PHQ-2 Score 0 06/03/2024 [place] Depression Scale Answer Date Recorded Last EPDS [...] on file 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 Gender Identity Not on file Sexual Orientation Not on file 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 office Not on file Not on file Not on file documented as of this encounter Plan of Treatment Upcoming Encounters Date Type Department Care Team (Late st Contact Info) Description 08/21/2024 10:00 AM BROKER ASSISTANT Virtual Visit [facility] Diabetes Education [address] [place] [address] Flor Joseph [address] [place] [address] 09/08/2024 2:15 PM CDT Appointment [facility] Maternal Medicine [facility] [address] [place] [phone] Kenya Keating MD [address] [address] [address] 09/08/2024 2:45 PM CDT Office Visit [facility] Maternal Medicine [facility] [place] [address] [place] [phone] Kenya Keating MD [address] [address] 09/16/2024 3:30 PM CDT Office Visit [facility] Women's Clinic [place] [address] [place] [address] Shamar Pacheco MD [address] [place] [address] 09/17/2024 2:30 PM CDT Virtual Visit [facility] Endocrinology Clinic [address] [place] [phone] Renée Alanis PA-C [address] [place] [address] 09/22/2024 2:00 PM CDT Appointment [facility] [address] [place] [phone] Kenya Keating MD [address] [place] [address] 400 [place], [place] [address] 10/13/2024 3:30 PM CDT Office Visit [facility] [address] [place] [address] [phone] Shamar Pacheco MD [address] [place] [address] 10/16/2024 2:30 PM CDT Virtual Visit [facility] Endocrinology Clinic [address] [phone] Renée Alanis PA-C [address] [address] 11/10/2024 3:45 PM CDT Office Visit [facility] [address] [place] [phone] Shamar Pacheco MD [address] [place] [address] 11/19/2024 2:30 PM CDT Virtual Visit [facility] Endocrinology Clinic [address] [phone] Renée Alanis PA-C [address] [address] 12/17/2024 2:30 PM CDT Virtual Visit [facility] Endocrinology Clinic [address] [phone] Renée Alanis PA-C [address] [address] 01/07/2025 1:30 PM CDT Virtual Visit [facility] Endocrinology [address] [phone] Renée Alanis PA-C [address] [address] 01/11/2025 7:30 AM CDT Hospital Encounter [facility] [address] [place] [address] Shamar Pacheco MD [address] [place] [address] Modified White class B pregestational diabetes mellitus (Primary Dx); Multigravida of advanced maternal age in first trimester; Previous delivery, antepartum condition or complication 01/11/2025 7:30 AM CDT - 01/11/2025 9:[address] [facility] [address] [place] [address] Shamar Pacheco MD [address] [place] [address] REPEAT SECTION Scheduled Procedures Name Priority Associated [...] documented as of this encounter Care Teams Graphic Production Artist Relationship Specialty Start Date End Date [facility], [address] [address] PCP - General 03/22/17 Shamar Pacheco MD [address] [place] [address] Assigned OBGYN Provider 10/09/[address] [address] Automatic Pad Making Machine Operator Dietitian, Registered 10/16/[address] [address] Automatic Pad Making Machine Operator Dietitian, Registered 11/02/21 Fiona Cornad [address] [place] [address] Automatic Pad Making Machine Operator Dietitian, Registered 01/23/23 Atif Garcia MD [address] [address] bus and sys integration senior manager 05/01/24 Dina Perez PA-C 500 [place] [address] Physician Telephone Plant Power Operator Endocrinology, Diabetes, and Metabolism 06/02/24 Tiffani Farmer MD 420 [facility] 101 [place], [place] [address] Assigned Endocrinology Provider 06/15/24 Cydney Olivarez Lori Community Health Worker 08/13/2408/14 documented as of this encounter
--- OUTSIDE RECORDS SUMMARY | 2024-08-18 20:28 | XMS_ITS | Encounter Summary ---
Author Organization [place] Address [facility] [place] [address] Care Team Providers Care Physical Chemist Name Role Phone Clinic, [facility] [place] Primary Care Provider Shamar Pacheco MD Unavailable Kellen Duran RD Unavailable [phone] Unavailable Unavailable Fiona Conrad Unavailable [phone] Atif Garcia MD Unavailable [phone] Dina Perez PA-C Unavailable Tiffani Farmer MD Unavailable [phone] Reason for Visit * Reason Comments Diabetes Education Encounter Details Date Type Department Care Team (Late st Contact Info) Description 07/10/2024 12:30 PM TRAVEL PHYSICAL THERAPIST Virtual Visit [facility] Diabetes Education [address] [address] Flor Joseph [address] [place] [address] Pre-existing type 2 diabetes mellitus during in first trimester (Primary Dx) Social History Tobacco Use Types Packs/Day Years Used Date Smoking Tobacco: Never Smokeless Tobacco: Never Alcohol Use Standard Drinks/Week Comments Not Currently 0 (1 standard drink = 0.6 oz pur e alcohol) PHQ-2 Answer Date Recorded PHQ-2 Score 0 07/10/[address] [place] Depression Scale Answer Date Recorded Last EPDS [...] on file Legal Sex Female 3:17 AM TRAVEL PHYSICAL THERAPIST Gender Identity Not on file Sexual Orientation Not on file 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 Here is a summary of our visit: *Choose a carb free coffee (hot coffee with creamer) if you plan to sip on it during the morning. *Strengthen breakfast carb ratio from 2u/carb to 2.5u/carb *Continue 2u/carb for L & D *Continue Lantus, 28 units. Follow Up Plan: Send in sugars via Punchd in 1 week. Virtual visit in 2 weeks. You can reply to this message with any diabetes related questions or concerns. Thank you, Flor Joseph RDN, LDN, [facility] Dietitian and Diabetes Education - Endocrinology [facility] [address] [place] [address] Email: [email or web address] Contact information: To schedule a diabetes education appointment:[phone]. For questions or concerns, please send a [employer] message or call the clinic at [phone]. For more urgent concerns that do not require 911, please call [phone] after hours/weekends andask to speak with the Editorial Clerk operations officer trust department. Please let us know if you are having low blood sugars less than 70 or over 300 mg/dL. Do not wait until your next appointment if this is happening. EL PHYSICAL THERAPIST documented in this encounter Progress Notes * Flor Joseph - 07/10/2024 12:30 PM CST Virtual Visit Details Type of service: Video Visit Originating Location (pt. Location): Home Distant Location (provider location): Off-site Platform used for Video Visit: [facility] Diabetes Self-Management Training - Complicated by Diabetes SUBJECTIVE: Holly Parra Hazel presents today for follow up related to complicated by Diabetes Patient concerns: Likes to sip on flavored coffee in the morning. No longer waking up feeling 'shaky'. Lantus: 28 units Mealtime: 2 units per carb choice. Averaging 3-5 units per meal. Sugars sent via [employer]: Sun 07/05 Wake up # 79 After breakfast # 100 After lunch # skipped After dinner # 183 Mon 07/06 Wake up # 69 After breakfast # 136 After lunch # 129 After dinner # 158 Tues 07/07 Wake up # 82 After breakfast # forgot apple checker After lunch # forgot apple checker After dinner # 131 Wed 07/08 Wake up # 121 After breakfast # 173 After lunch # 152 After dinner # 124 07/09 Wake up # 97 After breakfast # 153 (beef stick and granola bar and drinking flavored bottled coffee). After lunch # 132 After dinner # missed Fri 07/10 Wake up # 82 After breakfast # 155 LMP 04/05/2024 12w3d gestation - Lab Results Component Value Date A1C 11.0 06/01/2024 A1C 8.5 09/13/2023 A1C 7.6 01/23/2023 A1C 7.9 10/05/2022 A1C 7.2 11/01/2021 A1C 8.0 08/17/2019 History Smoking Status Never Smokeless Tobacco Never SOCIO/ECONOMIC HISTORY: Lives with: , 2 and 1 year old. Recent family changes/social stressors: young children ASSESSMENT: Fasting sugars: >50% under 95 mg/dl. Will continue Lantus 28 units. After breakfast sugars: <50% in target. Increase carb ratio to 2.5 unit(s)/carb. Choose unsweetened coffee. After lunch sugars: >50% in target After Dinner sugars: 50% in target. Encouraged revisiting carb counting at evening meal. Consider sugar free pop at [employer]. Continue carb ratio of 2 units per 15 grams carb @ L&D.. Previous pregnancies? 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 Prepregnancy weight 171 lbs Height: 5'10 Prepregnancy BMI 24 Medical conditions Diagnosed with Type 2 Diabetes 5 years ago. Medications was on Metformin, 500 mg twice a day - has been off for about a year. Eating Habits: 12.27 - less snacking/sweets before bed. 12.19 - purchased whole grain rice and bread. 3 meals a day. 6:30-7am: granola bar or yogurt or peanut butter pretzels. Coffee with added sugar. 11am: Soup OR Ramen OR [place] OR [id number] OR Burger (vending machine at work) 5-8 pm: Soup or stew or casserole. Dine out: once a week. Exercise habits: [employer] facility - office work - some movement. 2 small kids Problems in current mild nausea. High A1c - 11 % Educational topics covered today: Counting carbohydrates EDUCATIONAL MATERIALS: none PLAN: *Choose a carb free coffee (hot coffee with creamer) if you plan to sip on it during the morning. *Strengthen breakfast carb ratio from 2u/carb to 2.5u/carb *Continue 2u/carb for L & D *Continue Lantus, 28 units. FOLLOW-UP: Send sugars in via Punchd in 1 week. Diabetes education visits every other week.- Flor Joseph RDN, LD, CDCES Dietitian and Diabetes General Dentist/Owner - Endocrinology [facility] Time spent was 15 minutes Encounter type: Individual Any diabetes medication dose changes were made via the CDE Protocol and Collaborative Practice Agreement with [facility]. A copy of this encounter was provided to patient's referring provider. EL PHYSICAL THERAPIST documented in this encounter Plan of Treatment Upcoming Encounters Date Type Department Care Team (Late st Contact Info) Description 08/21/2024 10:00 AM TRAVEL PHYSICAL THERAPIST Virtual Visit [facility] Diabetes Education [address] [place] [phone] Flor Joseph [address] [place] [address] 09/08/2024 2:15 PM CDT Appointment [facility] Maternal Medicine [place] [address] [facility] [address] [place] [phone] Kenya Keating MD [address] [place] [address] [place], [place] [address] 09/08/2024 2:45 PM CDT Office Visit [facility] Maternal Medicine [facility] [place] [address] [facility] [address] [place] [phone] Kenya Keating MD [address] [place] [address] [place], [place] [phone] 09/16/2024 3:30 PM CDT Office Visit [facility] Women's Clinic [place] [address] [facility] [address] [place] [phone] Shamar Pacheco MD [address] [place] [address] 09/17/2024 2:30 PM CDT Virtual Visit [facility] Endocrinology Clinic [address] [place] [phone] Renée Alanis PA-C 420 [facility] 803 [place] [address] 09/22/2024 2:00 PM CDT Appointment [facility] Heart Care [address] [facility] [place] [phone] Kenya Keating MD [address] [place] [address] [place] [address] 10/13/2024 3:30 PM CDT Office Visit [address] [address] Shamar Pacheco MD [address] [place] [address] 10/16/2024 2:30 PM CDT Virtual Visit [facility] Endocrinology [address] [phone] Renée Alanis PA-C [address] [place] [address] 11/10/2024 3:45 PM CDT Office Visit [address] [phone] Shamar Pacheco MD [address] [place] [address] 11/19/2024 2:30 PM CDT Virtual Visit [facility] Endocrinology Clinic [address] [phone] Renée Alanis PA-C [address] [address] 12/17/2024 2:30 PM CDT Virtual Visit [facility] Endocrinology Clinic [address] [phone] Renée Alanis PA-C [address] [address] 01/07/2025 1:30 PM CDT Virtual Visit [facility] Endocrinology Clinic [place] [address] [facility] [address] 3rd [place] [phone] Renée Alanis PA-C [address] [place] [address] 803 [place] [address] 01/11/2025 7:30 AM CDT Hospital Encounter [facility] [address] [place] [address] Shamra Pacheco MD [address] [place] [address] Modified White class B pregestational diabetes mellitus (Primary Dx); Multigravida of advanced maternal age in first trimester; Previous delivery, antepartum condition or complication 01/11/2025 7:30 AM CDT - 01/11/2025 9:00 AM CDT Surgery [facility] [address] [place] [address] Shamar Pacheco MD [address] [place] [address] REPEAT SECTION Scheduled Procedures Name Priority Associated Diagnoses Date/Ti me SECTION Modified White class B pregestational diabetes mellitus Multigravida of advanced maternal age in first trimester Previous delivery, antepartum condition or complication 01/11/2025 7:30 AM CDT documented as of this encounter Visit Diagnoses Diagnosis Pre-existing type 2 diabetes mellitus during in first trimester- Primary Modified White class [...] documented as of this encounter Care Teams Physical Chemist Relationship Specialty Start Date End Date [facility], [address] [address] PCP - General 03/22/17 Shamar Pacheco MD [address] [place] [address] Assigned OBGYN Provider 10/09/[address] [address] Rotary Surface Grinder Dietitian, Registered 10/16/[address] [address] Rotary Surface Grinder Dietitian, Registered 11/02/21 Fiona Conrad [address] [place] [address] Rotary Surface Grinder Dietitian, Registered 01/23/23 Atif Garcia MD [address] [address] skilled nursing facility counselor 05/01/24 Dina Perez PA-C [address] [place] [address] Physician Student Ministry Pastor Endocrinology, Diabetes, and Metabolism 06/02/24 Tiffani Farmer MD [address] [place] [address] [address] [place] [address] Assigned Endocrinology Provider 06/15/24 documented as of this encounter
--- OUTSIDE RECORDS SUMMARY | 2024-08-18 20:28 | XMS_ITS | Encounter Summary ---
Author Organization [place] Address [facility] [place] [address] Care Team Providers Care Band Singer Name Role Phone Clinic, [facility] Primary Care Provider Shamar Pacheco MD Unavailable Kellen Duran RD Unavailable [phone] Unavailable Unavailable Fiona Conrad Unavailable [phone] Atif Garcia MD Unavailable [phone] Dina Perez PA-C Unavailable Tiffani Farmer MD Unavailable [phone] Cydney Olivarez Unavailable [phone] Encounter Details Date Type Department Care Team (Late st Contact Info) Description 06/19/2024 [facility] Diabetes Education [address] [place] [address] Flor Joseph [address] [place] [address] Social History Tobacco Use Types Packs/Day Years Used Date Smoking Tobacco: Never Smokeless Tobacco: Never Alcohol Use Standard Drinks/Week Comments Not Currently 0 (1 standard drink = 0.6 oz pur e alcohol) PHQ-2 Answer Date Recorded PHQ-2 Score 0 06/03/2024 [place] Depression Scale Answer Date Recorded Last EPDS [...] on file Legal Sex Female 3:17 AM 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 ENGINEER Gender Identity Not on file Sexual Orientation Not on file 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 office Not on file Not on file Not on file documented as of this encounter Plan of Treatment Upcoming Encounters Date Type Department Care Team (Late st Contact Info) Description 08/21/2024 10:00 AM HOTEL MAINTENANCE ENGINEER Virtual Visit [facility] Diabetes Education [address] [place] [address] Flor Joseph [address] [place] [address] 09/08/2024 2:15 PM CDT Appointment [facility] Maternal Medicine [facility] [address] [place] [phone] Kenya Keating MD [address] [address] [address] 09/08/2024 2:45 PM CDT Office Visit [facility] Maternal Medicine Center [place] [address] [place] [phone] Kenya Keating MD [address] [address] 09/16/2024 3:30 PM CDT Office Visit [facility] Women's Clinic [place] [address] [place] [address] Shamar Pacheco MD [address] [place] [address] 09/17/2024 2:30 PM CDT Virtual Visit [facility] Endocrinology Clinic [address] [place] [phone] Renée Alanis PA-C [address] [place] [address] 09/22/2024 2:00 PM CDT Appointment [facility] [address] [place] [phone] Kenya Keating MD [address] [place] [address] 400 [place], [place] [address] 10/13/2024 3:30 PM CDT Office Visit [facility] [address] [phone] Shamar Pacheco MD [address] [place] [address] 10/16/2024 2:30 PM CDT Virtual Visit [facility] Endocrinology Clinic [address] [phone] Renée Alanis PA-C [address] [address] 11/10/2024 3:45 PM CDT Office Visit [facility] [address] [place] [phone] Shamar Pacheco MD [address] [place] [address] 11/19/2024 2:30 PM CDT Virtual Visit [facility] Endocrinology Clinic [address] [phone] Renée Alanis PA-C [address] [address] 12/17/2024 2:30 PM CDT Virtual Visit [facility] Endocrinology Clinic [address] [phone] Renée Alanis PA-C [address] [address] 01/07/2025 1:30 PM CDT Virtual Visit [facility] Endocrinology [address] [phone] Renée Alanis PA-C [address] [address] 01/11/2025 7:30 AM CDT Hospital Encounter [facility] [address] [place] [address] Shamar Pacheco MD [address] [place] [address] Modified White class B pregestational diabetes mellitus (Primary Dx); Multigravida of advanced maternal age in first trimester; Previous delivery, antepartum condition or complication 01/11/2025 7:30 AM CDT - 01/11/2025 9:00 AM CDT Surgery [facility] [address] [place] [address] Shamar Pacheco MD [address] [place] [address] REPEAT SECTION Scheduled Procedures Name Priority Associated [...] documented as of this encounter Care Teams Band Singer Relationship Specialty Start Date End Date [facility], [address] [address] PCP - General 03/22/17 Shamar Pacheco MD [address] [place] [address] Assigned OBGYN Provider 10/09/[address] [address] Environmental Services Assistant Dietitian, Registered 10/16/[address] [address] Environmental Services Assistant Dietitian, Registered 11/02/21 Fiona Conrad [address] [place] [place] [address] Environmental Services Assistant Dietitian, Registered 01/23/23 Atif Garcia MD [address] [address] special collections librarian 05/01/24 Dina Perez PA-C 500 [place] [address] Physician Wood Boring Machine Operator Endocrinology, Diabetes, and Metabolism 06/02/24 Tiffani Farmer MD 420 [facility] 101 [place], [place] [address] Assigned Endocrinology Provider 06/15/24 Cydney Olivarez Lori Community Health Worker 08/13/2408/14 documented as of this encounter
--- OUTSIDE RECORDS SUMMARY | 2024-08-18 20:28 | XMS_ITS | Encounter Summary ---
Author Organization [place] Address [employer] [facility] [place] [address] Care Team Providers Care Thread Tool Grinder Set Up Operator Name Role Phone [facility], [facility] Primary Care Provider Shamar Pacheco MD Unavailable [phone] Unavailable [phone] Unavailable Unavailable Fiona Conrad Unavailable [phone] Atif Garcia MD Unavailable [phone] Dina Perez PA-C Unavailable Tiffani Farmer MD Unavailable [phone] Cydney Olivarez Unavailable [phone] Encounter Details Date Type Department Care Team (Late st Contact Info) Description 06/05/2024 [facility] [place] [facility] Endocr[facility]ology [facility] [address] [place] [address] [facility] Social History Tobacco Use Types Packs/Day Years Used Date Smoking Tobacco: Never Smokeless Tobacco: Never Alcohol Use Standard Drinks/Week Comments Not Currently 0 (1 standard drink = 0.6 oz pur e alcohol) PHQ-2 Answer Date Recorded PHQ-2 Score 0 06/03/2024 [place] Depression Scale Answer Date Recorded Last EPDS [...] on file Legal Sex Female 3:17 AM 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 Gender Identity Not on file Sexual Orientation Not on file 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 office Not on file Not on file Not on file documented as of this encounter Plan of Treatment Upcoming Encounters Date Type Department Care Team (Late st Contact Info) Description 08/21/2024 10:00 AM 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 Virtual Visit [facility] Diabetes Education [address] [place] [address] Flor Joseph [address] [place] [address] 09/08/2024 2:15 PM CDT Appointment [facility] M[facility] Medicine [facility] [place] [address] [place] [phone] Kenya Keating MD [address] [place], [place] [address] 09/08/2024 2:45 PM CDT Office Visit [facility] [place] [address] [place] [phone] Kenya Keating MD [address] [place], [place] [address] 09/16/2024 3:30 PM CDT Office Visit [facility] Women's Clinic [place] [address] [place] [place] [phone] Shamar Pacheco MD [address] [place] [address] 09/17/2024 2:30 PM CDT Virtual Visit [facility] Endocrinology Clinic [place] [address] [phone] Renée Alanis PA-C [address] [place] [address] 09/22/2024 2:00 PM CDT Appointment [facility] Heart Care [address] [place] [phone] Kenya Keating MD [address] [place] [address] 400 [place] [address] 10/13/2024 3:30 PM CDT Office Visit [address] [address] Shamar Pacheco MD [address] [place] [address] 10/16/2024 2:30 PM CDT Virtual Visit [facility] Endocrinology [address] [phone] Renée Alanis PA-C [address] [place] [address] 11/10/2024 3:45 PM CDT Office Visit [facility] [address] [facility] [address] [place] [phone] Shamar Pacheco MD [address] [place] [address] 11/19/2024 2:30 PM CDT Virtual Visit [facility] Endocrinology Clinic [address] [phone] Renée Alanis PA-C [address] [address] 12/17/2024 2:30 PM CDT Virtual Visit [facility] Endocrinology Clinic [place] [address] [place] [phone] Renée Alanis PA-C 420 [facility] [address] [place] [address] 01/07/2025 1:30 PM CDT Virtual Visit [facility] Endocrinology [address] [phone] Renée Alanis PA-C [address] [place] [address] 01/11/2025 7:30 AM CDT Hospital Encounter [facility] [address] [place] [address] Shamar Pacheco MD [address] [place] [address] Modified White class B pregestational diabetes mellitus (Primary Dx); Multigravida of advanced maternal age in first trimester; Previous delivery, antepartum condition or complication 01/11/2025 7:30 AM CDT - 01/11/2025 9:00 AM CDT Surgery [facility] [address] [place] [address] Shamar Pacheco MD [address] [place] [address] REPEAT SECTION Scheduled Procedures Name Priority Associated [...] documented as of this encounter Care Teams Thread Tool Grinder Set Up Operator Relationship Specialty Start Date End Date Clinic, [address] [address] PCP - General 03/22/17 Shamar Pacheco MD [address] [place] [address] Assigned OBGYN Provider 10/09/[address] [address] Bad Cloth Checker Dietitian, Registered 10/16/[address] [address] Bad Cloth Checker Dietitian, Registered 11/02/21 Fiona Conrad [address] [place] [address] Bad Cloth Checker Dietitian, Registered 01/23/23 Atif Garcia MD [address] [address] director print 05/01/24 Dina Perez PA-C [address] [place] [address] Physician Casework Manager Endocrinology, Diabetes, and Metabolism 06/02/24 Tiffani Farmer MD [address] [place] [address] Assigned Endocrinology Provider 06/15/24 Cydney Olivarez CHW Community Health Worker 08/13/2408/14 documented as of this encounter
--- OUTSIDE RECORDS SUMMARY | 2024-08-18 20:28 | XMS_ITS | Encounter Summary ---
Author Organization [place] Address [address] [facility] [place] [address] Care Team Providers Care Scuba Instructor Name Role Phone [facility], [facility] Primary Care Provider Shamar Pacheco MD Unavailable [phone] Unavailable [phone] Unavailable Unavailable Fiona Conrad Unavailable Atif Garcia MD Unavailable [phone] Dina Perez PA-C Unavailable Tiffani Farmer MD Unavailable [phone] Cydney Olivarez Unavailable [phone] Reason for Referral * Mental Health Outpatient (Routine: Next available opening) - Pending Review Specialty Diagnoses / Procedures Referred By Contac t Referred To Contact Diagnoses Multigravida of advanced maternal age in first trimester Modified White class B pregestational diabetes mellitus Previous delivery, antepartum condition or complication Shamar Pacheco MD [address] [place] [address] Phone: tel: fax: Referral ID Status Reason Start Date Expiration Date V isits Requested Visits Authorized [id number] Pending Review 08/13/2024 08/13/2025 1 1 Question Answer Services: Assess/Evaluate for appropriate service (non-medication assessment) My Clinical Question Is: Holly is currently in her 17th week of and has noticed that she easily feels angry . Hoping for some coping ideas Patient Scheduling Instructions: [facility] will call you to coordinate your care as prescribed by your provider. If you don't hear from a business center representative within 2 business days, please call . Only select yes if the patient has already been scheduled and requires a referral for insurance. If yes is selected, the referral will NOT route to scheduling for outreach. No Comments Please be aware that coverage of these services is subject to the terms and limitations of your health insurance plan. Call member services at your health plan with any benefit or coverage questions. [facility] will call you to coordinate your care as prescribed by your provider. If you don't hear from a business center representative within 2 business days, please call . 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 FARMER * Care Coordination (Routine: Next available opening) - Pending Review Specialty Diagnoses / Procedures Referred By Contac t Referred To Contact Diagnoses Multigravida of advanced maternal age in first trimester Modified White class B pregestational diabetes mellitus Previous delivery, antepartum condition or complication Shamar Pacheco MD [address] [place] [address] Phone: tel: fax: Referral ID Status Reason Start Date Expiration Date V isits Requested Visits Authorized [id number] Pending Review 08/12/2024 08/12/2025 1 1 Question Answer Reason for Referral: Mental Wellness (Health) (Mental Illness/Chemical Dependency) Mental Wellness: Resources of Behavioral Health Services Clinical Staff have discussed the Care Coordination Referral with the patient and/or caregiver: Yes Additional Information: Currently 17 weeks gestation c/o feeling angry easily and more angry that the situation deserves. Comments E DAIRY FARMER Reason for Visit * Reason Comments Care Encounter Details Date Type Department Care Team (Late st Contact Info) Description 08/12/2024 3:15 PM SHARE DAIRY FARMER Office Visit [facility] Women's [facility] [address] [place] [address] Shamar Pacheco MD [address] [place] [address] Multigravida of advanced maternal age in first trimester (Primary Dx); Modified White class B pregestational diabetes mellitus; Previous delivery, antepartum condition or complication Social History Tobacco Use Types Packs/Day Years Used Date Smoking Tobacco: Never Smokeless Tobacco: Never Alcohol Use Standard Drinks/Week Comments Not Currently 0 (1 standard drink = 0.6 oz pur e alcohol) PHQ-2 Answer Date Recorded PHQ-2 Score 0 08/12/2024 [place] Depression Scale Answer Date Recorded Last EPDS [...] on file Legal Sex Female 3:17 AM SHARE DAIRY FARMER Gender Identity Not on file Sexual Orientation Not on file 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 Class B diabetes. States blood sugars are much better controlled and has follow-up with diabetic Ed next week. Has not yet scheduled a level 2 ultrasound with M but will do that after today's visit. Has been having more emotional instability and is amenable to a behavioral health referral which we will place. Planning repeat and possible tubal ligation at 39 weeks or as indicated. Return to clinic4 weeks E DAIRY FARMER documented in this encounter Nursing Notes * Linda Chappell CMA - 08/12/2024 3:15 PM CST Chief Complaint Patient presents with Care 17w1d initial BP 110/66 Wt 82.1 kg (181 lb) LMP 04/05/2024 BMI 25.97 kg/m?? Estimated body mass index is 25.97 kg/m?? as calculated from the following: Height as of 06/03/24: 1.778 m (5' 10). Weight as of this encounter: 82.1 kg (181 lb). BP completed using cuff size regular Linda Chappell CMA on 08/12/2024 at 3:10 PM E DAIRY FARMER documented in this encounter Miscellaneous Notes * Addendum Note - Linda Chappell CMA - 08/12/2024 3:15 PM CSTAddended by: LINDA CHAPPELL on: 08/13/2024 09:58 AM Modules accepted: Orders E DAIRY FARMER documented in this encounter Plan of Treatment Upcoming Encounters Date Type Department Care Team (Late st Contact Info) Description 08/21/2024 10:00 AM SHARE DAIRY FARMER Virtual Visit [facility] Diabetes Education [address] [place] [address] Flor Joseph [address] [place] [address] 09/08/2024 2:15 PM CDT Appointment [facility] M[facility] Medicine [facility] [place] [address] [place] [phone] Kenya Keating MD [address] [place] [address] 09/08/2024 2:45 PM CDT Office Visit [facility] Maternal Medicine [facility] [address] [place] [phone] Kenya Keating MD [address] [place], [place] [address] 09/16/2024 3:30 PM CDT Office Visit [place] [address] [place] [phone] Shamar Pacheco MD [address] [place] [address] 09/17/2024 2:30 PM CDT Virtual Visit [facility] Endocrinology Clinic [place] [address] [facility] [address] 3rd [place] [phone] Renée Alanis PA-C [address] [place] [address] [address] [place] [address] 09/22/2024 2:00 PM CDT Appointment [facility] [address] [place] [phone] Kenya Keating MD [address] [place], [place] [address] 10/13/2024 3:30 PM CDT Office Visit [place] [address] [place] [address] Shamar Pacheco MD [address] [place] [address] 10/16/2024 2:30 PM CDT Virtual Visit [facility] Endocrinology Clinic [address] [phone] Renée Alanis PA-C [address] [address] 11/10/2024 3:45 PM CDT Office Visit [facility] Women[facility] [address] [facility] [address] [place] [address] Shamar Pacheco MD [address] [place] [address] 11/19/2024 2:30 PM CDT Virtual Visit [facility] Endocrinology Clinic [address] [phone] Renée Alanis PA-C [address] [address] 12/17/2024 2:30 PM CDT Virtual Visit [facility] Endocrinology Clinic [address] [phone] Renée Alanis PA-C [address] [address] 01/07/2025 1:30 PM CDT Virtual Visit [facility] Endocrinology Clinic [address] [phone] Renée Alanis PA-C [address] [address] 01/11/2025 7:30 AM CDT Hospital Encounter [facility] [address] [place] [address] Shamar Pacheco MD [address] [place] [address] Modified White class B pregestational diabetes mellitus (Primary Dx); Multigravida of advanced maternal age in first trimester; Previous delivery, antepartum condition or complication 01/11/2025 7:30 AM CDT - 01/11/2025 9:[address] [facility] [address] [place] [address] Shamar Pacheco MD [address] [place] [address] REPEAT SECTION Scheduled Procedures Name Priority Associated Diagnoses Date/Ti me SECTION Modified White class B pregestational diabetes mellitus Multigravida of advanced maternal age in first trimester Previous delivery, antepartum condition or complication 01/11/2025 7:30 AM CDT Scheduled Referrals Name Type Priority Associated Diagnoses Orde r Schedule Primary Care - Care Coordination Referral Referral Routine: Next available opening Multigravida of advanced maternal age in first trimester Modified White class B pregestational diabetes mellitus Previous delivery, antepartum condition or complication Expected: 08/12/2024 (Approximate), Expires: 08/12/2025 [facility] Field Crop Farmer Referral Referral Routine: Next available opening Multigravida of advanced maternal age in first trimester Modified White class B pregestational diabetes mellitus Previous delivery, antepartum condition or complication Expected: 08/13/2024 (Approximate), Expires: 08/13/2025 documented as of this encounter Visit Diagnoses Diagnosis Modified White class B pregestational diabetes mellitus- [...] Total Score: 1 08/12/19 25 4:09 PM SHARE DAIRY FARMER documented as of this encounter Care Teams Scuba Instructor Relationship Specialty Start Date End Date [facility], [address] [address] PCP - General 03/22/17 Shamar Pacheco MD [address] [place] [address] Assigned OBGYN Provider 10/09/[address] [address] Marketing Services Manager Dietitian, Registered 10/16/[address] [address] Marketing Services Manager Dietitian, Registered 11/02/21 Fiona Conrad [address] [place] [address] Marketing Services Manager Dietitian, Registered 01/23/23 Atif Garcia MD [address] [place] [address] slot technician 05/01/24 Dina Perez PA-C [address] [place], [place] [address] Physician Engineering Technologist Endocrinology, Diabetes, and Metabolism 06/02/24 Tiffani Farmer MD [address] [facility] [address] [place] [address] Assigned Endocrinology Provider 06/15/24 Cydney Olivarez CHW Community Health Worker 08/13/2408/14 documented as of this encounter
--- OUTSIDE RECORDS SUMMARY | 2024-08-18 20:28 | XMS_ITS | Encounter Summary ---
Author Organization [place] Address [facility] [place] [address] Care Team Providers Care Natural Resource Officer Name Role Phone Clinic, [facility] Primary Care Provider Shamar Pacheco MD Unavailable [phone] Unavailable [phone] Unavailable Unavailable Fiona Conrad Unavailable Atif Garcia MD Unavailable [phone] Dina Perez PA-C Unavailable Tiffani Farmer MD Unavailable [phone] Cydney Olivarez Unavailable [phone] Encounter Details Date Type Department Care Team (Late st Contact Info) Description 06/26/2024 [facility] [place] [facility] Diabetes Education [address] [place] [address] Flor Joseph [address] [place] [address] Social History Tobacco Use Types Packs/Day Years Used Date Smoking Tobacco: Never Smokeless Tobacco: Never Alcohol Use Standard Drinks/Week Comments Not Currently 0 (1 standard drink = 0.6 oz pur e alcohol) PHQ-2 Answer Date Recorded PHQ-2 Score 0 06/03/2024 [place] Depression Scale Answer Date Recorded Last EPDS [...] on file Legal Sex Female 3:17 AM LGSW Gender Identity Not on file Sexual Orientation Not on file 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 1 week follow up for and Type 2 Diabetes. Holly is 11 wk3d gestation. documented in this encounter Plan of Treatment Upcoming Encounters Date Type Department Care Team (Late st Contact Info) Description 08/21/2024 10:00 AM LGSW Virtual Visit [facility] Diabetes Education [address] [place] [phone] Flor Joseph [address] [place] [address] 09/08/2024 2:15 PM CDT Appointment [facility] Maternal Medicine [facility] [address] [place] [facility] [address] [place] [address] Kenya Keating MD [address] [address] 09/08/2024 2:45 PM CDT Office Visit [facility] Maternal Medicine [facility] [address] [facility] [address] [place] [address] Kenya Keating MD [address] [place] [address] 09/16/2024 3:30 PM CDT Office Visit [address] [place] [phone] Shamar Pacheco MD [address] [place] [address] 09/17/2024 2:30 PM CDT Virtual Visit [facility] Endocrinology [address] [place] [phone] Renée Alanis PA-C [address] [address] 09/22/2024 2:[address] [facility] Heart Care [address] [place] [phone] Kenya Keating MD [address] [place] [address] 10/13/2024 3:30 PM CDT Office Visit [address] [place] [address] Shamar Pacheco MD [address] [place] [address] 10/16/2024 2:30 PM CDT Virtual Visit [facility] Endocrinology [address] [place] [phone] Renée Alanis PA-C [address] [address] 11/10/2024 3:45 PM CDT Office Visit [facility] Women's [facility] [address] [place] [address] Shamar Pacheco MD [address] [place] [address] 11/19/2024 2:30 PM CDT Virtual Visit [facility] Endocrinology [address] [phone] Renée Alanis PA-C [address] [address] 12/17/2024 2:30 PM CDT Virtual Visit [facility] Endocrinology [address] [phone] Renée Alanis PA-C [address] [address] 01/07/2025 1:30 PM CDT Virtual Visit [facility] Endocrinology [address] [phone] Renée Alanis PA-C [address] [address] 01/11/2025 7:30 AM CDT Hospital Encounter [facility] [address] [place] [address] Shamar Pacheco MD [address] [place] [address] Modified White class B pregestational diabetes mellitus (Primary Dx); Multigravida of advanced maternal age in first trimester; Previous delivery, antepartum condition or complication 01/11/2025 7:30 AM CDT - 01/11/2025 9:00 AM CDT [facility] [address] [place] [address] Shamar Pacheco MD [address] [place] [address] REPEAT SECTION Scheduled Procedures Name Priority Associated [...] documented as of this encounter Care Teams Natural Resource Officer Relationship Specialty Start Date End Date [facility], [address] [address] PCP - General 03/22/17 Shamar Pacheco MD [address] [place] [address] Assigned OBGYN Provider 10/09/[address] [address] Child Daycare Worker Dietitian, Registered 10/16/[address] [address] Child Daycare Worker Dietitian, Registered 11/02/21 Fiona Conrad [address] [place] [address] Child Daycare Worker Dietitian, Registered 01/23/23 Atif Garcia MD [address] [facility] [address] [place] [address] skiving machine operator 05/01/24 Dina Perez PA-C [address] [place] [address] Physician Rotary Kiln Operator Endocrinology, Diabetes, and Metabolism 06/02/24 Tiffani Farmer MD [address] [place] [address] 101 [place], [place] [address] Assigned Endocrinology Provider 06/15/24 Cydney Olivarez CHW Community Health Worker 08/13/2408/14 documented as of this encounter
--- OUTSIDE RECORDS SUMMARY | 2024-08-18 20:28 | XMS_ITS | Encounter Summary ---
Author Organization [place] Address [address] [facility] [place] [address] Care Team Providers Care Fine Patcher Name Role Phone Radha, [facility] Primary Care Provider Shamar Pacheco MD Unavailable Kellen Duran RD Unavailable [phone] Unavailable Unavailable Fiona Conrad Unavailable Atif Garcia MD Unavailable [phone] Dina Perez PA-C Unavailable Tiffani Farmer MD Unavailable [phone] Reason for Referral * Consultation (Routine: Next available opening) - Pending Review Specialty Diagnoses / Procedures Referred By Conttri t Referred To Contact Diagnoses Modified White class B pregestational diabetes mellitus Multigravida of advanced maternal age in first trimester Shamar Pacheco MD [address] [place] [address] Phone: tel: fax: [facility] [place] [address] [facility] [address] [place] [address] Phone: tel: fax: Referral ID Status Reason Start Date Expiration Date V isits Requested Visits Authorized [id number] Pending Review 07/15/2024 07/15/2025 1 1 Question Answer Preferred Location: [facility] [place] Working Due Date: 01/19/2025 US Ordering Instructions: If US ONLY is requested, select appropriate US Order and DO NOT order MFM Consult. Reason for Referral: Ultrasound, Consult Ultrasound - Includes Interpretation/Recommendations (*indicates inclusion of genetic counseling): Comprehensive US (>= 18w0d GA) Consult Type: MFM MD (Consult may be ordered for clinical questions beyond US interpretation) Indication (* indicates inclusion of genetic counseling): Advanced Maternal Age * - Type 2 DM Comments Body mass index is 26.11 kg/m . >> Patient may proceed with recommendations for further testing as directed by the Maternal Medicine Specialist >> >> If requesting Echo: MFM will determine appropriate location for exam due to indication. Please be aware that coverage of these services is subject to the terms and limitations of your health insurance plan. Call member services at your health plan with any benefit or coverage questions. TROENCEPHALOGRAPH TECHNICIAN Reason for Visit * Reason Comments Care Encounter Details Date Type Department Care Team (Late st Contact Info) Description 07/15/2024 2:45 PM ELECTROENCEPHALOGRAPH TECHNICIAN Office Visit [facility] [place] [address] [place] [phone] Shamar Pacheco MD [address] [place] [address] Multigravida of advanced maternal age in first trimester (Primary Dx); Modified White class B pregestational diabetes mellitus; Previous delivery, antepartum condition or complication Social History Tobacco Use Types Packs/Day Years Used Date Smoking Tobacco: Never Smokeless Tobacco: Never Alcohol Use Standard Drinks/Week Comments Not Currently 0 (1 standard drink = 0.6 oz pur e alcohol) PHQ-2 Answer Date Recorded PHQ-2 Score 0 07/10/2024 [place] Depression Scale Answer Date Recorded Last EPDS [...] on file Legal Sex Female 3:17 AM ELECTROENCEPHALOGRAPH TECHNICIAN Gender Identity Not on file Sexual Orientation Not on file 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 office Not on file Not on file Not on file documented as of this encounter Last Filed Vital Signs Vital Sign Reading Time Taken Comments Blood Pressure 104/60 07/15/2024 2:33 PM ELECTROENCEPHALOGRAPH TECHNICIAN Pulse - - Temperature - - Respiratory Rate - - Oxygen Saturation - - Inhaled Oxygen Concentration - - Weight 82.6 kg (182 lb) 07/15/2024 2:33 PM ELECTROENCEPHALOGRAPH TECHNICIAN Height - - Body Mass Index 26.11 06/03/2024 12:52 PM ELECTROENCEPHALOGRAPH TECHNICIAN documented in this encounter Progress Notes * Shamar Pacheco MD - 07/15/2024 2:45 PM CST 33-year-old G5, P2 at 13 weeks 1 day with type 2 diabetes class B presents for routine OB visit. heart tones are auscultated. Patient states her blood sugars are getting under better control. She is planning a repeat at 39 weeks which we will tentatively schedule for January 11 knowingthis could be moved up if diabetes is suboptimally controlled as has been the case in the past. Will check a urine culture as she has had some nonspecific dysuria. Return to clinic 4 weeks. [facility] referral placed for level 2 ultrasound and testing regarding her type 2 diabetes TROENCEPHALOGRAPH TECHNICIAN documented in this encounter Plan of Treatment Upcoming Encounters Date Type Department Care Team (Late st Contact Info) Description 08/21/2024 10:00 AM ELECTROENCEPHALOGRAPH TECHNICIAN Virtual Visit [facility] Diabetes Education [address] [place] [address] Flor Joseph [address] [place] [address]99235 09/08/2024 2:15 PM CDT Appointment [facility] Maternal Medicine [facility] [address] [facility] [address] [place] [phone] Kenya Keating MD [address] [place] [address] 09/08/2024 2:45 PM CDT Office Visit [facility] Maternal Medicine [facility] [address] [facility] [address] [place] [phone] Kenya Keating MD [address] [place] [address] 09/16/2024 3:30 PM CDT Office Visit [place] [address] [place] [phone] Shamar Pacheco MD [address] [place] [address] 09/17/2024 2:30 PM CDT Virtual Visit [facility] Endocrinology [facility] [place] [address] [facility] [address] 3rd [place] [phone] Renée Alanis PA-C [address] [place] [address] 803 [place] [address] 09/22/2024 2:00 PM CDT Appointment [facility] [address] [place] [phone] Kenya Keating MD [address] [place] [address] 10/13/2024 3:30 PM CDT Office Visit [facility] [address] [facility] [address] [place] [address] Shamar Pacheco MD [address] [place] [address] 10/16/2024 2:30 PM CDT Virtual Visit [facility]ology [facility] [address] [phone] Renée Alanis PA-C [address] [address] 11/10/2024 3:45 PM CDT Office Visit [facility] [address] [address] Shamar Pacheco MD [address] [place] [address] 11/19/2024 2:30 PM CDT Virtual Visit [facility] [address] [phone] Renée Alanis PA-C [address] 3833[address] 12/17/2024 2:30 PM CDT Virtual Visit [facility]ology [facility] [address] [phone] Renée Alanis PA-C [address] [address] 01/07/2025 1:30 PM CDT Virtual Visit [facility]ology [facility] [address] [phone] Renée Alanis PA-C [address] [facility] [address]03 [place] [address] 01/11/2025 7:30 AM CDT Hospital Encounter [facility] [address] [place] [address] Shamar Pacheco MD [address] [place] [address] Modified White class B pregestational diabetes mellitus (Primary Dx); Multigravida of advanced maternal age in first trimester; Previous delivery, antepartum condition or complication 01/11/2025 7:30 AM CDT - 01/11/2025 9:00 AM CDT Surgery [facility] [address] [place] [address] Shamar Pacheco MD [address] [place] [address] REPEAT SECTION Scheduled Procedures Name Priority Associated Diagnoses Date/Ti me SECTION Modified White class B pregestational diabetes mellitus Multigravida of advanced maternal age in first trimester Previous delivery, antepartum condition or complication 01/11/2025 7:30 AM CDT Scheduled Referrals Name Type Priority Associated Diagnoses Orde r Schedule Mat Med Ctr Referral - Referral Routine: Next available opening Modified White class B pregestational diabetes mellitus Multigravida of advanced maternal age in first trimester Expected: 07/15/2024 (Approximate), Expires: 01/11/2025 documented as of this encounter Procedures Procedure Name Priority Date/Time Associated Diagnosis Comments URINE CULTURE Routine 07/15/2024 3:06 PM ELECTROENCEPHALOGRAPH TECHNICIAN Modified White class B pregestational diabetes mellitus Multigravida of advanced maternal age in first trimester documented in this encounter Results * Urine Culture Aerobic Bacterial - lab collect (07/15/2024 3:06 PM ELECTROENCEPHALOGRAPH TECHNICIAN) Culture <10,000 CFU/mL Mixture of Urogenital Kori 07/17/2024 5:32 AM ELECTROENCEPHALOGRAPH TECHNICIAN [facility] Urine MID-STREAM URINE SPECIMEN / Unknown Non-blood Collection / Unknown 07/15/2024 3:06 PM ELECTROENCEPHALOGRAPH TECHNICIAN 07/15/2024 3:09 PM ELECTROENCEPHALOGRAPH TECHNICIAN Shamar Pacheco MD LAB - MICRO GENERAL OR DERABLES Final Result [facility] Inf. Diseases Diag. Lab [address] [facility], [address] [place] [address] documented in this encounter Visit Diagnoses Diagnosis Multigravida of advanced maternal age in first trimester- Primary Modified White class B pregestational diabetes mellitus Previous delivery, antepartum condition or complication Modified White class B pregestational diabetes mellitus- [...] documented as of this encounter Care Teams Fine Patcher Relationship Specialty Start Date End Date [facility], [address] [address] PCP - General 03/22/17 Shamar Pacheco MD [address] [place] [address] Assigned OBGYN Provider 10/09/[address] [address] Records Management Engineer Dietitian, Registered 10/16/[address] [address] Records Management Engineer Dietitian, Registered 11/02/21 Fiona Conrad [address] [place] [address] Records Management Engineer Dietitian, Registered 01/23/23 Atif Garcia MD [address] [address] schedule supervisor 05/01/24 Dina Perez PA-C [address] [place] [address] Physician Spectrograph Operator Endocrinology, Diabetes, and Metabolism 06/02/24 Tiffani Farmer MD [address] [place] [address] Assigned Endocrinology Provider 06/15/24 documented as of this encounter
--- OUTSIDE RECORDS SUMMARY | 2024-08-18 20:28 | XMS_ITS | Encounter Summary ---
Author Organization [place] Address [address] [facility] [place] [address] Care Team Providers Care Real Estate Investment Analyst Name Role Phone [facility], [facility] Primary Care Provider Shamar Pacheco MD Unavailable [phone] Unavailable [phone] Unavailable Unavailable Fiona Conrad Unavailable [phone] [facility] Unavailable Atif Garcia MD Unavailable [phone] Dina Perez PA-C Unavailable Tiffani Farmer MD Unavailable [phone] Cydney Olivarez Unavailable [phone] Reason for Visit * Reason Onset Date Comments Diabetes Education 10/10/2022 Encounter Details Date Type Department Care Team (Late st Contact Info) Description 10/10/2022 Telephone [facility] Women[facility] [address] [place] [address] Flaquito Zhang MD [address] [place] [address] Diabetes Education Social History Tobacco Use Types Packs/Day Years [...] on file Legal Sex Female 3:17 AM 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 No / Unsure 10/09/2022 10:48 AM CDT documented as of this encounter Miscellaneous Notes * Telephone Encounter - Bernardo Beltran - 10/15/2022 1:09 PM CDT Diabetes Education Scheduling Outreach #2: Call to patient to schedule. Left message with phone number to call to schedule. Bernardo [facility] Scheduling * Telephone Encounter - Belkys Dueñas - 10/10/2022 1:07 PM CDT Diabetes Education Scheduling Outreach #1: Call to patient to schedule. Left message with phone number to call to schedule. Plan for 2nd outreach attempt within 3 business days. Belkys [facility] Scheduling documented in this encounter Plan of Treatment Upcoming Encounters Date Type Department Care Team (Late st Contact Info) Description 08/21/2024 10:00 AM NITROCELLULOSE MAKER Virtual Visit [facility] Diabetes Education [address] [place] [address] Flor Joseph [address] [place] [address] 09/08/2024 2:15 PM CDT Appointment [facility] Maternal Medicine [facility] [place] [address] [facility] [address] [place] [address] Kenya Keating MD [address] [place] [address] 09/08/2024 2:45 PM CDT Office Visit [facility] Maternal Medicine [facility] [address] [facility] [address] [place] [phone] Kenya Keating MD [address] [place] [address] 09/16/2024 3:30 PM CDT Office Visit [facility] Women's [facility] [place] [address] [place] [phone] Shamar Pacheco MD [address] [place] [address] 09/17/2024 2:30 PM CDT Virtual Visit [facility] Endocrinology Clinic [place] [address] [facility] 3rd [place] [phone] Renée Alanis PA-C [address] [place] [address] 803 [place] [address] 09/22/2024 2:00 PM CDT Appointment [facility] [place] [phone] Kenya Keating MD [address] [place], [place] [address] 10/13/2024 3:30 PM CDT Office Visit [facility] [address] [phone] Shamar Pacheco MD [address] [place] [address] 10/16/2024 2:30 PM CDT Virtual Visit [facility] Endocrinology [address] [phone] Renée Alanis PA-C [address] [address] 11/10/2024 3:45 PM CDT Office Visit [address] [address] Shamar Pacheco MD [address] [place] [address] 11/19/2024 2:30 PM CDT Virtual Visit [facility] Endocrinology [address] [phone] Renée Alanis PA-C [address] [address] 12/17/2024 2:30 PM CDT Virtual Visit [facility] Endocrinology Clinic [address] [phone] Renée Alanis PA-C [address] [address] 01/07/2025 1:30 PM CDT Virtual Visit [facility] Endocrinology Clinic [address] [phone] Renée Alanis PA-C 420 [facility] 803 [place] [address] 01/11/2025 7:30 AM CDT Hospital Encounter [facility] [address] [place] [phone] Shamar Pacheco MD [address] [place] [address] Modified White class B pregestational diabetes mellitus (Primary Dx); Multigravida of advanced maternal age in first trimester; Previous delivery, antepartum condition or complication 01/11/2025 7:30 AM CDT - 01/11/2025 9:00 AM CDT Surgery [facility] [address] [place] [address] Shamar Pacheco MD [address] [place] [address] REPEAT SECTION Scheduled Procedures Name Priority Associated [...] documented as of this encounter Care Teams Real Estate Investment Analyst Relationship Specialty Start Date End Date [facility], [facility] [address] [place] [address] PCP - General 03/22/17 Shamar Pacheco MD [address] [place] [address] Assigned OBGYN Provider 10/09/[address] [address] Horticulturalist Dietitian, Registered 10/16/[address] [address] Horticulturalist Dietitian, Registered 11/02/21 Fiona Conrad [address] [place] [address] Horticulturalist Dietitian, Registered 01/23/23 [facility] [place] [address] [address] Assigned PCP 07/18/23 03/15/24 Atif Garcia MD [address] [facility] 100 [place] [address] smelting engineer 05/01/24 Dina Perez PA-C [address] [place] [address] Physician Technical Recruiter Endocrinology, Diabetes, and Metabolism 06/02/24 Tiffani Farmer MD [address] [place] [address] [address] [place] [address] Assigned Endocrinology Provider 06/15/24 Cydney Olivarez CHW Community Health Worker 08/13/2408/14 documented as of this encounter
--- OUTSIDE RECORDS SUMMARY | 2024-08-18 20:28 | XMS_ITS | Encounter Summary ---
Author Organization [place] Address [address] [place] [address] Support Name Relationship Address Phone Chris Oilva Personal Relationship Unknown Minoo Posada Personal Relationship [address] [facility] [place] [address] Care Team Providers Care Staff Design Engineer Name Role Phone Clinic, [facility] Primary Care Provider Shamar Pacheco MD Unavailable Kellen Duran RD Unavailable [phone] Unavailable Unavailable Fiona Conrad Unavailable Atif Garcia MD Unavailable [phone] Dina Perez PA-C Unavailable Tiffani Farmer MD Unavailable [phone] Encounter Details Date Type Department Care Team (Latest Contact Info) Description 07/15/2024 Travel Social History Tobacco Use Types Packs/Day Years Used Date Smoking Tobacco: Never Smokeless Tobacco: Never Alcohol Use Standard Drinks/Week Comments Not Currently 0 (1 standard drink = 0.6 oz pur e alcohol) PHQ-2 Answer Date Recorded PHQ-2 Score 0 07/10/2024 [place] Depression Scale Answer Date Recorded Last EPDS [...] on file Legal Sex Female 3:17 AM 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 TYING OPERATOR Gender Identity Not on file Sexual Orientation Not on file 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 office Not on file Not on file Not on file documented as of this encounter Plan of Treatment Upcoming Encounters Date Type Department Care Team (Late st Contact Info) Description 08/21/2024 10:00 AM KNOT TYING OPERATOR Virtual Visit [facility] Diabetes Education [address] [phone] [address] Joseph [address] [place] [address] 09/08/2024 2:15 PM CDT Appointment [facility] Maternal Medicine Center [place] [address] [facility] [address] [place] [phone] Kenya Keating MD [address] [place], [place] [address] 09/08/2024 2:45 PM CDT Office Visit [facility] Maternal Medicine [facility] [place] [address] [place] [phone] Kenya Keating MD [address] [place], [place] [address] 09/16/2024 3:30 PM CDT Office Visit [facility] Women's Clinic [place] [address] [place] [address] [place] [phone] Shamar Pacheco MD [address] [place] [address] 09/17/2024 2:30 PM CDT Virtual Visit [facility] Endocrinology Clinic [address] [phone] Renée Alanis PA-C 420 [facility] [address] [place] [address] 09/22/2024 2:00 PM CDT Appointment [facility] Heart Care [address] [place] [phone] Kenya Keating MD [address] [place] [address] 10/13/2024 3:30 PM CDT Office Visit [address] [phone] Shamar Pacheco MD [address] [place] [address] 10/16/2024 2:30 PM CDT Virtual Visit [facility] Endocrinology Clinic [address] [phone] Renée Alanis PA-C [address] [place] [address] 11/10/2024 3:45 PM CDT Office Visit [facility] [address] [facility] [address] [place] [phone] Shamar Pacheco MD [address] [place] [address] 11/19/2024 2:30 PM CDT Virtual Visit [facility] Endocrinology Clinic [address] [phone] Renée Alanis PA-C [address] [place] [address] 12/17/2024 2:30 PM CDT Virtual Visit [facility] Endocrinology Clinic [place] [address] [facility] 3rd [place] [phone] Renée Alanis PA-C 420 [facility] 803 [place] [address] 01/07/2025 1:30 PM CDT Virtual Visit [facility] Endocrinology Clinic [place] 9[address] [facility] [address] [place] [phone] Renée Alanis PA-C [address] [address] 01/11/2025 7:30 AM CDT Hospital Encounter [facility] [address] [place] [address] Shamar Pacheco MD [address] [place] [address] Modified White class B pregestational diabetes mellitus (Primary Dx); Multigravida of advanced maternal age in first trimester; Previous delivery, antepartum condition or complication 01/11/2025 7:30 AM CDT - 01/11/2025 9:00 AM CDT Surgery [facility] [address] [place] [address] Shamar Pacheco MD [address] [place] [address] REPEAT SECTION Scheduled Procedures Name Priority Associated [...] documented as of this encounter Care Teams Staff Design Engineer Relationship Specialty Start Date End Date [facility], [place] [id number] [place] [address] PCP - General 03/22/17 Shamar Pacheco MD [address] [place] [address] Assigned OBGYN Provider 10/09/[address] [address] Styrene Dehydration Reactor Operator Dietitian, Registered 10/16/[address] [address] [place] Dehydration Reactor Operator Dietitian, Registered 11/02/21 Fiona Conrad [address] [place] [address] [place] Dehydration Reactor Operator Dietitian, Registered 01/23/23 Atif Garcia MD [address] [place] [address] covering machine operator 05/01/24 Dina Perez PA-C [address] [place] [address]445 Physician Dx Board Operator Endocrinology, Diabetes, and Metabolism 06/02/24 Tiffani Farmer MD [address] [place] [address] 345085 Assigned Endocrinology Provider 06/15/24 documented as of this encounter
--- OUTSIDE RECORDS SUMMARY | 2024-08-18 20:29 | XMS_ITS | Encounter Summary ---
Author Organization [place] Address [address] [facility] [place] [address] Care Team Providers Care Men'S Locker Room Attendant Name Role Phone [facility], [facility] Primary Care Provider Shamar Pacheco MD Unavailable [phone] Unavailable [phone] Unavailable Unavailable Fiona Conrad Unavailable [facility] - [facility] Unavailable Atif Garcia MD Unavailable [phone] Dina Perez PA-C Unavailable Tiffani Farmer MD Unavailable [phone] Cydney Olivarez Unavailable [phone] Encounter Details Date Type Department Care Team (Late st Contact Info) Description 03/12/2023 Transcribe Orders [facility] M[facility] [place] [address] [facility] [address] [place] [address] David Atkinson MD [address] [place] [address] 400 [place] [address] Social History Tobacco Use Types Packs/Day [...] file 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 No / Unsure 03/15/2023 3:05 PM CDT documented as of this encounter Plan of Treatment Upcoming Encounters Date Type Department Care Team (Late st Contact Info) Description 08/21/2024 10:00 AM ELECTRIC CELL TENDER Virtual Visit [facility] Diabetes Education [address]rd [place] [address] Flor Joseph [address] [place] [address] [phone] 09/08/2024 2:15 PM CDT Appointment [facility] Maternal Medicine [facility] [address] [place] [phone] Kenya Keating MD [address] [place] [address] [place], [place] [address]40[address] 09/08/2024 2:45 PM CDT Office Visit [facility] Maternal Medicine [facility] [address] [place] [phone] Kenya Keating MD [address] [place] [address] [place], [place] [address] 09/16/2024 3:30 PM CDT [facility] [address] [place] [phone] Shamar Pacheco MD [address] [place] [address] 09/17/2024 2:30 PM CDT Virtual Visit [facility] Endocrinology [facility] [place] [address] [facility] 3rd [place] [phone] Renée Alanis PA-C 420 [facility] [address] [place] [address]09005 09/22/2024 2:[address] [facility] 2450 [place] [phone] Kenya Keating MD [address] [place] [address] S [facility] 400 [place] [address] 10/13/2024 3:30 PM CDT [facility] [address] [place] [phone] Shamar Pacheco MD [address] [place] [address] 10/16/2024 2:30 PM CDT Virtual Visit [facility] Endocrinology Clinic [place] [address] [facility] 3rd [place] [phone] Renée Alanis PA-C [address] [address] 11/10/2024 3:45 PM CDT Office Visit [facility] [address] [place] [address] Shamar Pacheco MD [address] [place] [address] 11/19/2024 2:30 PM CDT Virtual Visit [facility] Endocrinology [address] [phone] Renée Alanis PA-C [address] [address] 12/17/2024 2:30 PM CDT Virtual Visit [facility] Endocrinology [address] [phone] Renée Alanis PA-C [address] [address] 01/07/2025 1:30 PM CDT Virtual Visit [facility] Endocrinology [address] [phone] Renée Alanis PA-C [address] [address] 01/11/2025 7:30 AM CDT Hospital Encounter [facility] [address] [place] [address] Shamar Pacheco MD [address] [place] [address] Modified White class B pregestational diabetes mellitus (Primary Dx); Multigravida of advanced maternal age in first trimester; Previous delivery, antepartum condition or complication 01/11/2025 7:30 AM CDT - 01/11/2025 9:00 AM CDT Surgery [facility] [address] [place] [address] Shamar Pacheco MD [address] [place] [address] REPEAT SECTION Scheduled Procedures Name Priority Associated [...] documented as of this encounter Care Teams Men'S Locker Room Attendant Relationship Specialty Start Date End Date [facility], [address] [address] PCP - General 03/22/17 Shamar Pacheco MD [address] [place] [address] Assigned OBGYN Provider 10/09/[address] [address] [employer] Dietitian, Registered 10/16/[address] [address] [employer] Dietitian, Registered 11/02/21 Fiona Conrad [address] [place] [address] [employer] Dietitian, Registered 01/23/23 [facility] [address] [address] Assigned PCP 07/18/23 03/15/24 Atif Garcia MD [address] [facility] [address] [place] [address] human performance professor 05/01/24 Dina Perez PA-C [address] [place] [address] Physician Signal Inspector Endocrinology, Diabetes, and Metabolism 06/02/24 Tiffani Farmer MD 420 [facility] 101 [place] [address] Assigned Endocrinology Provider 06/15/24 Cydney Olivarez CHW Community Health Worker 08/13/2408/14 documented as of this encounter
--- OUTSIDE RECORDS SUMMARY | 2024-08-18 20:29 | XMS_ITS | Encounter Summary ---
Author Organization [place] Address [facility] [place] [address] Care Team Providers Care Meter/Relay Technician Name Role Phone [facility], [facility] Primary Care Provider Shamar Pacheco MD Unavailable [phone] Unavailable [phone] Unavailable Unavailable Fiona Conrad Unavailable Atif Garcia MD Unavailable [phone] Dina Perez PA-C Unavailable Tiffani Farmer MD Unavailable [phone] Cydney Olivarez Unavailable [phone] Reason for Visit * Reason Onset Date Comments Call Back 08/07/2024 Medication and a ppointment Encounter Details Date Type Department Care Team (Late st Contact Info) Description 08/07/2024 Telephone [facility] [place] [facility] [place] [address] [facility] 3rd [place] [address] Tiffani Farmer MD 420 [facility] 101 [place] [address] Call Back (Medication and appointment ) Social History Tobacco Use Types Packs/Day Years Used Date Smoking Tobacco: Never Smokeless Tobacco: Never Alcohol Use Standard Drinks/Week Comments Not Currently 0 (1 standard drink = 0.6 oz pur e alcohol) PHQ-2 Answer Date Recorded PHQ-2 Score 0 07/10/2024 [place] Depression Scale Answer Date Recorded Last EPDS [...] on file Legal Sex Female 3:17 AM ENTRY EXAMINER Gender Identity Not on file Sexual Orientation Not on file 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 Sent refill for Lantus insulin to [facility]. Scheduled follow-up with Flor GONG on 08/21/2024. Will ask clinic coordinators to help holly schedule with endo provider - either Dr. Farmer or one of the Endo PA's. Annemarie Chavez RD, LD CDCES [employer] Y EXAMINER * Telephone Encounter - Geno Deleon - 08/07/2024 9:25 AM CST [facility] Phone Message May a detailed message be left on voicemail: yes Reason for Call: Other: Per pt is now ready to schedule follow ups with . Per pt been just very busy so she finally is able to find sometime to call and make appts. Per pt is still . Per pt would also like to mention she needs her refill for insulin glargine (LANTUS PEN) 100 UNIT/MLpen. Per pt tired getting a fill at the pharmacy but they told her she out of refills. Per pt been out of medication since Saturday. Please call pt back. Thank you! Action Taken: Message routed to: [facility]O Travel Screening: Not Applicable Date of Service: Y EXAMINER documented in this encounter Plan of Treatment Upcoming Encounters Date Type Department Care Team (Late st Contact Info) Description 08/21/2024 10:00 AM ENTRY EXAMINER Virtual Visit [facility] Diabetes Education [address] [phone] Flor Joseph [address] [place] [address] 09/08/2024 2:15 PM CDT Appointment [facility] [place] Maternal [facility] [address] [place] [phone] Kenya Keating MD [address] [place] [address] [place], [place] [address] 09/08/2024 2:45 PM CDT Office Visit [facility] Maternal [facility] [address] [facility] [address] [place] [phone] Kenya Keating MD [address] [place] [address] [place], [place] [phone] 09/16/2024 3:30 PM CDT Office Visit [facility] [place] [facility] [place] [address] [place] [address] [place] [phone] Shamar Pacheco MD [address] [place] [address] 09/17/2024 2:30 PM CDT Virtual Visit [facility] [address] [phone] Renée Alanis PA-C [address] [place] [address] [facility] 803 [place] [address] 09/22/2024 2:00 PM CDT Appointment [facility] [address]50 [place] [phone] Kenya Keating MD [address] [place] [address] [address] [place] [address] 10/13/2024 3:30 PM CDT Office Visit [address] [phone] Shamar Pacheco MD [address] [place], [place] 90[address] 10/16/2024 2:30 PM CDT Virtual Visit [facility] [address] [place] [phone] Renée Alanis PA-C [address] [address] 11/10/2024 3:45 PM CDT Office Visit [address] [phone] Shamar Pacheco MD [address] [place], [place] 83[address]37 11/19/2024 2:30 PM CDT Virtual Visit [facility] [address] [place] [phone] Renée Alanis PA-C 420 [facility] [address] [place] [address] 12/17/2024 2:30 PM CDT Virtual Visit [facility] [address] [place] [phone] Renée Alanis PA-C 420 [facility] [address] [place] [address] 01/07/2025 1:30 PM CDT Virtual Visit [facility] [address] [place] [phone] Renée Alanis PA-C [address] [address] 01/11/2025 7:30 AM CDT Hospital Encounter [facility] [address] [place] [address] Shamar Pacheco MD [address] [place] [address] Modified White class B pregestational diabetes mellitus (Primary Dx); Multigravida of advanced maternal age in first trimester; Previous delivery, antepartum condition or complication 01/11/2025 7:30 AM CDT - 01/11/2025 9:00 AM CDT Surgery [facility] [address] [place] [address] Shamar Pacheco MD [address] [place] [address] REPEAT SECTION Scheduled Procedures Name Priority Associated [...] trimester Previous delivery, antepartum condition or complication Type 2 diabetes mellitus with hyperglycemia, with long-term current use of insulin (H) Multigravida of advanced maternal age in first [...] documented as of this encounter Care Teams Meter/Relay Technician Relationship Specialty Start Date End Date [facility], [address] [address] PCP - General 03/22/17 Shamar Pacheco MD [address] [place] [address] Assigned OBGYN Provider 10/09/[address] [address] [employer] Dietitian, Registered 10/16/[address] [address] [employer] Dietitian, Registered 11/02/21 Fiona Conrad 9 [place] [address] [place] [employer] Dietitian, Registered 01/23/23 Atif Garcia MD [address] [facility] [place] [address] [place] [address] director of scout work 05/01/24 Dina Perez PA-C [address] [place] [address] Physician Client Success Director Endocrinology, Diabetes, and Metabolism 06/02/24 Tiffani Farmer MD 420 [facility] 101 [place], [place] 322985 Assigned Endocrinology Provider 06/15/24 Cydney Olivarez CHW Community Health Worker 08/13/2408/14 documented as of this encounter
--- OUTSIDE RECORDS SUMMARY | 2024-08-18 20:29 | XMS_ITS | Encounter Summary ---
Author Organization [place] Address [facility] [address] Care Team Providers Care Shop Mechanic Helper Name Role Phone Clinic, [facility] Primary Care Provider Shamar Pacheco MD Unavailable Kellen Duran RD Unavailable [phone] Unavailable Unavailable Fiona Conrad Unavailable Atif Garcia MD Unavailable [phone] Dina Perez PA-C Unavailable Tiffani Farmer MD Unavailable [phone] Reason for Visit * Reason Onset Date Comments Appointment 07/23/2024 Encounter Details Date Type Department Care Team (Late st Contact Info) Description 07/23/2024 Telephone [facility] Diabetes Education [address] [address] Flor Joseph [address] [place] [address] Appointment Social History Tobacco Use Types Packs/Day Years Used Date Smoking Tobacco: Never Smokeless Tobacco: Never Alcohol Use Standard Drinks/Week Comments Not Currently 0 (1 standard drink = 0.6 oz pur e alcohol) PHQ-2 Answer Date Recorded PHQ-2 Score 0 07/10/2024 [place] Depression Scale Answer Date Recorded Last EPDS [...] on file Legal Sex 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:17 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 Gender Identity Not on file Sexual Orientation Not on file 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 Provider call out 07/24/24, reschedule needed. Appt cancelled. Available appts 07/29 1:30 virtual 08/13 12:30 virtual/in person 08/17 10:30/12:30 virtual/in person Bryanna Simms on 07/24/2024 at 8:11 AM ENGINEER ENGINEER * Telephone Encounter - Ni Monge CMA - 07/23/2024 4:35 PM CST Attempted to contact patient to let her know that Flor Benjamin will not be able to attend their scheduled07/24 appt. No answer. LVM advising pt to call back for rescheduling. MyCkeltont msg sent as well. ENGINEER documented in this encounter Plan of Treatment Upcoming Encounters Date Type Department Care Team (Late st Contact Info) Description 08/21/2024 10:00 AM RATE ENGINEER Virtual Visit [facility] Diabetes Education [address] [place] [phone] Flor Joseph [address] [place] [address] 09/08/2024 2:15 PM CDT Appointment [facility] Maternal Medicine [facility] [address] [facility] [address] [place] [phone] Kenya Keating MD [address] [place] [address] [place], [place] [address] 09/08/2024 2:45 PM CDT Office Visit [facility] Maternal Medicine [facility] [address] [facility] [address] [place] [phone] Kenya Keating MD [address] [place] [address] [place], [place] [address] 09/16/2024 3:30 PM CDT Office Visit [facility] Women's [facility] [place] [address] [place] [place] [address] [place] [phone] Shamar Pacheco MD [address] [place] [address] 09/17/2024 2:30 PM CDT Virtual Visit [facility] Endocrinology Clinic [address] [phone] Renée Alanis PA-C 420 [facility] 803 [place] [address] 09/22/2024 2:00 PM CDT Appointment [facility] 2450 [place] [phone] Kenya Keating MD [address] [place] [address] 10/13/2024 3:30 PM CDT Office Visit [facility] 303 [facility] 100 [place] [address] Shamar Pacheco MD [address] [place] [address] 10/16/2024 2:30 PM CDT Virtual Visit [facility] Endocrinology Clinic [address] [phone] Renée Alanis PA-C [address] [place] [address] 11/10/2024 3:45 PM CDT Office Visit [facility] [address] [phone] Shamar Pacheco MD [address] [place] [address] 11/19/2024 2:30 PM CDT Virtual Visit [facility] Endocrinology Clinic [place] [address] [phone] Renée Alanis PA-C [address] [place] [address] 12/17/2024 2:30 PM CDT Virtual Visit [facility] Endocrinology [facility] [place] 909 [facility] 3rd [place] [phone] Renée Alanis PA-C 420 [facility] 803 [place] [address] 01/07/2025 1:30 PM CDT Virtual Visit [facility] Endocrinology Clinic [place] 909 [facility] [address] 3rd [place] [phone] Renée Alanis PA-C 420 [facility] 803 [place] [address] 01/11/2025 7:30 AM CDT Hospital Encounter [facility] [address] [place] [phone] Shamar Pacheco MD [address] [place] [address] Modified White class B pregestational diabetes mellitus (Primary Dx); Multigravida of advanced maternal age in first trimester; Previous delivery, antepartum condition or complication 01/11/2025 7:30 AM CDT - 01/11/2025 9:00 AM CDT Surgery [facility] [address] [place] [phone] Shamar Pacheco MD [address] [place] [address] REPEAT SECTION Scheduled Procedures Name Priority Associated [...] documented as of this encounter Care Teams Shop Mechanic Helper Relationship Specialty Start Date End Date Clinic, [facility] [address] [place] [address] PCP - General 03/22/17 Shamar Pacheco MD [address] [place] [address] Assigned OBGYN Provider 10/09/[address] [address] Supervisor [place] Dietitian, Registered 10/16/[address] [address] Supervisor [place] Dietitian, Registered 11/02/21 Fiona Conrad [address] [place] [address] Supervisor [place] Dietitian, Registered 01/23/23 Atif Garcia MD [address] [address] chemical applicator 05/01/24 Dina Perez PA-C [address] [place] [address] Physician Marine Radio Installer And Servicer Endocrinology, Diabetes, and Metabolism 06/02/24 Tiffani Farmer MD [address] [place] [address] Assigned Endocrinology Provider 06/15/24 documented as of this encounter
--- OUTSIDE RECORDS SUMMARY | 2024-08-18 20:29 | XMS_ITS | Encounter Summary ---
Author Organization [place] Address [address] [facility] [address] Care Team Providers Care End User Consultant Name Role Phone [facility], [facility] Primary Care Provider Shamar Pacheco MD Unavailable Kellen Duran RD Unavailable [phone] Unavailable Unavailable Fiona Conrad Unavailable Clinic - [facility] G[facility] Unavailable Atif Garcia MD Unavailable [phone] Dina Perez PA-C Unavailable Tiffani Farmer MD Unavailable [phone] Cydney Olivarez Unavailable [phone] Encounter Details Date Type Department Care Team (Late st Contact Info) Description 02/14/2023 MyC Medical Advice [facility] Diabetes Education [address] [place] [address] Fiona Conrad [address] [place] [address] Social History Tobacco Use Types Packs/Day Years [...] on file 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 No / Unsure 02/12/2023 2:58 PM CDT documented as of this encounter Plan of Treatment Upcoming Encounters Date Type Department Care Team ([facility] st Contact Info) Description 08/21/2024 10:00 AM FERMENTER HELPER Virtual Visit [facility] Diabetes Education [address] [place] [phone] Flor Joseph [address] [place] [address] 09/08/2024 2:15 PM CDT Appointment [facility] Maternal Medicine [place] [address] [place] [phone] Kenya Keating MD [address] [address] 09/08/2024 2:45 PM CDT Office Visit [facility] [address] [place] [phone] Kenya Keating MD [address] [place] [address] [place] [address] 09/16/2024 3:30 PM CDT Office Visit [facility] Women's Clinic [place] [address] [place] [address] [place] [address] Shamar Pacheco MD [address] [place] [address] 09/17/2024 2:30 PM CDT Virtual Visit [facility] Endocrinology Clinic [address] [place] [phone] Renée Alanis PA-C [address] [place] [address] 803 [place] [address] 09/22/2024 2:00 PM CDT Appointment [facility] Heart Care 2450 [place] [phone] Kenya Keating MD [address] [place] [address] 400 [place], [place] 867054 10/13/2024 3:30 PM CDT Office Visit [facility] [address] [place] [address] [phone] Shamar Pacheco MD [address] [place] [address] 10/16/2024 2:30 PM CDT Virtual Visit [facility] Endocrinology Clinic [address] [phone] Renée Alanis PA-C [address] 1589[address] 11/10/2024 3:45 PM CDT Office Visit [facility] [address] [place] [address] [place] [phone] Shamar Pacheco MD [address] [place] [address] 11/19/2024 2:30 PM CDT Virtual Visit [facility] Endocrinology Clinic [address] [phone] Renée Alanis PA-C 420 [facility] [address] [place] [address] 12/17/2024 2:30 PM CDT Virtual Visit [facility] Endocrinology Clinic [address] [phone] Renée Alanis PA-C [address] [address] 01/07/2025 1:30 PM CDT Virtual Visit [facility] Endocrinology Clinic [address] [phone] Renée Alanis PA-C [address] [address] 01/11/2025 7:30 AM CDT Hospital Encounter [facility] [address] [place] [address] Shamar Pacheco MD [address] [place] [address] Modified White class B pregestational diabetes mellitus (Primary Dx); Multigravida of advanced maternal age in first trimester; Previous delivery, antepartum condition or complication 01/11/2025 7:30 AM CDT - 01/11/2025 9:00 AM CDT Surgery [facility] [address] [place] [address] Shamar Pacheco MD [address] [place] [address] REPEAT SECTION Scheduled Procedures Name Priority Associated [...] documented as of this encounter Care Teams End User Consultant Relationship Specialty Start Date End Date [facility], [facility] [address] [place] [address] PCP - General 03/22/17 Shamar Pacheco MD [address] [place] [address] Assigned OBGYN Provider 10/09/[address] [address] Hr Operations Advisor Dietitian, Registered 10/16/[address] [address] Hr Operations Advisor Dietitian, Registered 11/02/21 Fiona Conrad 919 [place] [address] Hr Operations Advisor Dietitian, Registered 01/23/23 Clinic - [facility] Garrido [address] [address] Assigned PCP 07/18/23 03/15/24 Atif Garcia MD [address] [facility] [address] [place] [address] conservation or heritage architect 05/01/24 Dina Perez PA-C [address] [place] [address] Physician Assistant Portfolio Manager Endocrinology, Diabetes, and Metabolism 06/02/24 Tiffani Farmer MD [address] [place] [address] 101 [place], [place] 106085 Assigned Endocrinology Provider 06/15/24 Cydney Olivarez CHW Community Health Worker 08/13/2408/14 documented as of this encounter
--- OUTSIDE RECORDS SUMMARY | 2024-08-18 20:29 | XMS_ITS ---
Author Organization [place] Address [address] [place] [address] Care Team Providers Care Travel Specialist Name Role Phone [facility], [facility] Primary Care Provider Shamar Pacheco MD Unavailable Kellen Duran RD Unavailable [phone] Unavailable Unavailable Fiona Conrad Unavailable [phone] Atif Garcia MD Unavailable [phone] Dina Perez PA-C Unavailable Tiffani Farmer MD Unavailable [phone] Diabetes Self-Management Education Status:Enrolled (Active) Start date:10/16/2021 Enrollment date:10/16/2021 Case Team Name Relationship Phone Kellen Duran RD Supervisor Fishing(Responsible Staff) [phone] Continued Care and Services Coordination
--- OUTSIDE RECORDS SUMMARY | 2024-08-18 20:29 | XMS_ITS | Encounter Summary ---
Author Organization [place] Address [address] [facility] [place] [address] Care Team Providers Care Telemarketing Representative Name Role Phone [facility], [facility] Primary Care Provider Shamar Pacheco MD Unavailable [phone] Unavailable [phone] Unavailable Unavailable Fiona Conrad Unavailable [phone] Clinic - [facility]idel Garrido [facility] Unavailable Atif Garcia MD Unavailable [phone] Dina Perez PA-C Unavailable Tiffani Farmer MD Unavailable [phone] Cydney Olivarez Unavailable [phone] Encounter Details Date Type Department Care Team (Late st Contact Info) Description 01/23/2023 MyC Medical Advice [facility] Diabetes Education [address] [place] [address] Fiona Conrad [address] [place] [address] [id number] Social History Tobacco Use Types Packs/Day Years [...] on file 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 No / Unsure 01/23/2023 4:11 PM CDT documented as of this encounter Plan of Treatment Upcoming Encounters Date Type Department Care Team ([facility] st Contact Info) Description 08/21/2024 10:00 AM MACHINE PACKAGE SEALER Virtual Visit [facility] Diabetes Education [address]rd [place] [phone] Flor Joseph [address] [place] [address] 09/08/2024 2:15 PM CDT Appointment [facility] Maternal Medicine [place] [address] [place] [phone] Kenya Keating MD [address] [address] 09/08/2024 2:45 PM CDT Office Visit [facility] Maternal Medicine [facility] [address] [place] [phone] Kenya Keating MD [address] [place] [address] [place] [address] 09/16/2024 3:30 PM CDT Office Visit [facility] Women's Clinic [place] [address] [place] [address] [place] [address] Shamar Pacheco MD [address] [place] [address] 09/17/2024 2:30 PM CDT Virtual Visit [facility] Endocrinology Clinic [address] [place] [phone] Renée Alanis PA-C [address] [place] [address] 803 [place] [address] 09/22/2024 2:00 PM CDT Appointment [facility] Heart Care 2450 [place] [phone] Kenya Keating MD [address] [place] [address] 400 [place], [place] [address]954 10/13/2024 3:30 PM CDT Office Visit [facility] [address] [place] [place] [address] [phone] Shamar Pacheco MD [address] [place] [address] 10/16/2024 2:30 PM CDT Virtual Visit [facility] Endocrinology Clinic [address] [phone] Renée Alanis PA-C [address] 9[address] 11/10/2024 3:45 PM CDT Office Visit [facility] [address] [place] [address] [place] [phone] Shamar Pacheco MD [address] [place] [address] 11/19/2024 2:30 PM CDT Virtual Visit [facility] Endocrinology Clinic [address] [phone] Renée Alanis PA-C 420 [facility] [address] [place] [address] 12/17/2024 2:30 PM CDT Virtual Visit [facility] Endocrinology Clinic [address] [phone] Renée Alanis PA-C [address] [address] 01/07/2025 1:30 PM CDT Virtual Visit [facility] Endocrinology Clinic [address] [phone] Renée Alanis PA-C [address] [address] 01/11/2025 7:30 AM CDT Hospital Encounter [facility] [address] [place] [address] Shamar Pacheco MD [address] [place] [address] Modified White class B pregestational diabetes mellitus (Primary Dx); Multigravida of advanced maternal age in first trimester; Previous delivery, antepartum condition or complication 01/11/2025 7:30 AM CDT - 01/11/2025 9:00 AM CDT Surgery [facility] [address] [place] [address] Shamar Pacheco MD [address] [place] [address] REPEAT SECTION Scheduled Procedures Name Priority Associated [...] documented as of this encounter Care Teams Telemarketing Representative Relationship Specialty Start Date End Date [facility], [facility] [address] [place] [address] PCP - General 03/22/17 Shamar Pacheco MD [address] [place] [address] Assigned OBGYN Provider 10/09/[address] [address] Associate Sales Dietitian, Registered 10/16/[address] [address] Associate Sales Dietitian, Registered 11/02/21 Fiona Conrad 919 [place] [address] Associate Sales Dietitian, Registered 01/23/23 Clinic - Fidel Garrido [address] [address] Assigned PCP 07/18/23 03/15/24 Atif Garcia MD [address] [facility] [address] [place] [address] quick technician 05/01/24 Dina Perez PA-C [address] [place] [address] Physician Slot Service Specialist Endocrinology, Diabetes, and Metabolism 06/02/24 Tiffani Farmer MD [address] [place] [address] 101 [place], [place] 999125 Assigned Endocrinology Provider 06/15/24 Cydney Olivarez CHW Community Health Worker 08/13/2408/14 documented as of this encounter
--- OUTSIDE RECORDS SUMMARY | 2024-08-18 20:29 | XMS_ITS ---
Author Organization [place] Address [facility]. [address] Care Team Providers Care Morning News Anchor Name Role Phone Radha, [facility] [place] Primary Care Provider Shamar Pacheco MD Unavailable Kellen Duran RD Unavailable [phone] Unavailable Unavailable Fiona Conrad Unavailable Atif Garcia MD Unavailable [phone] Dina Perez PA-C Unavailable Tiffani Farmer MD Unavailable [phone] Primary Care Care Coordination Status:Closed (Closed) Start date:08/12/2024 End date:08/14/2024 Close reason:Unable to reach patient Overview If interested, assign to [facility] Continued Care and Services Coordination
--- OUTSIDE RECORDS SUMMARY | 2024-08-18 20:29 | XMS_ITS | Encounter Summary ---
Author Organization [place] Address [facility] [place] [address] Care Team Providers Care Water Softener Service Supervisor Name Role Phone [facility], [facility] Primary Care Provider Shamar Pacheco MD Unavailable Kellen Duran RD Unavailable [phone] Unavailable Unavailable Fiona Conrad Unavailable [facility] - [facility]idel [facility]arrido 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 No / Unsure 12/15/2021 3:26 PM CDT documented as of this encounter Plan of Treatment Upcoming Encounters Date Type Department Care Team (Late st Contact Info) Description 08/21/2024 10:00 AM HANDICRAFT OR HOBBY SHOP MANAGER Virtual Visit [facility] Diabetes Education [address]rd [place] [address] Flor Joseph [address] [place] [address] 09/08/2024 2:15 PM CDT Appointment [facility] Maternal Medicine [facility] [address] [place] [phone] Kenya Keating MD [address] [address] [address] 9[address] 09/08/2024 2:45 PM CDT Office Visit [facility] Maternal Medicine [facility] [address] [place] [phone] Kenya Keating MD [address] [address] 7597[address] 09/16/2024 3:30 PM CDT Office Visit [facility] Women's Clinic [place] [address] [place] [address] Shamar Pacheco MD [address] [place] [address] 09/17/2024 2:30 PM CDT Virtual Visit [facility] Endocrinology Clinic [address] [place] [address] Renée Alanis PA-C [address] [place] [address] 803 [place] [address] 09/22/2024 2:00 PM CDT Appointment [facility] Heart Care 2450 [place] [phone] Kenya Keating MD [address] [place] [address] S [facility] 400 [place], [place] 6[address] 10/13/2024 3:30 PM CDT Office [facility] [address] [phone] Shamar Pacheco MD [address] [place] [address] 10/16/2024 2:30 PM CDT Virtual Visit [facility] Endocrinology Clinic [address] [phone] Renée Alanis PA-C [address] [address] 11/10/2024 3:45 PM CDT Office Visit [facility] [address] [place] [phone] Shamar Pacheco MD [address] [place] [address] 11/19/2024 2:30 PM CDT Virtual Visit [facility] Endocrinology [address] [phone] Renée Alanis PA-C [address] [address] 12/17/2024 2:30 PM CDT Virtual Visit [facility] Endocrinology [address] [phone] Renée Alanis PA-C [address] [address] 01/07/2025 1:30 PM CDT Virtual Visit [facility] Endocrinology [address] [phone] Renée Alanis PA-C [address] [address] 01/11/2025 7:30 AM CDT Hospital Encounter [facility] [address] [place] [address] Shamar Pacheco MD [address] [place] [address] Modified White class B pregestational diabetes mellitus (Primary Dx); Multigravida of advanced maternal age in first trimester; Previous delivery, antepartum condition or complication 01/11/2025 7:30 AM CDT - 01/11/2025 9:00 AM CDT Surgery [facility] [address] [place] [address] Shamar Pacheco MD [address] [place] [address] REPEAT SECTION Scheduled Procedures Name Priority Associated Diagnoses Date/Ti me SECTION Modified White class B pregestational diabetes mellitus Multigravida of advanced maternal age in first trimester Previous delivery, antepartum condition or complication 01/11/2025 7:30 AM CDT documented as of this encounter Visit Diagnoses Not on filedocumented in this encounter Additional Health Concerns Assessment Noted Time PHQ-9 Depression Total Score: 0 05/31/20 7:03 AM HANDICRAFT OR HOBBY SHOP MANAGER documented as of this encounter Care Teams Water Softener Service Supervisor Relationship Specialty Start Date End Date [facility], [address] [address] PCP - General 03/22/17 Shamar Pacheco MD [address] [place] [address] Assigned OBGYN Provider 10/09/[address] [address] Mortgage Operations Manager Dietitian, Registered 10/16/[address] [address] Mortgage Operations Manager Dietitian, Registered 11/02/21 Fiona Conrad [address]19 [place] [address] Mortgage Operations Manager Dietitian, Registered 01/23/23 Clinic - Fidel Garrido [address] [address] Assigned PCP 07/18/23 03/15/24 Atif Garcia MD [address] [facility] [address] [place] [address] airfield services officer 05/01/24 Dina Perez PA-C [address] [place] [address] Physician Quality Analyst/Technical Writer Endocrinology, Diabetes, and Metabolism 06/02/24 Tiffani Farmer MD [address] [place] [address] 101 [place], [place] 6265[address] Assigned Endocrinology Provider 06/15/24 Cydney Olivarez, Lori Community Health Worker 08/13/2408/14 documented as of this encounter
--- OUTSIDE RECORDS SUMMARY | 2024-08-18 20:29 | XMS_ITS | Encounter Summary ---
Author Organization [place] Address [facility] [place] [address] Care Team Providers Care Blown Film Extrusion Operator Name Role Phone [facility], [facility] Primary Care Provider Shamar Pacheco MD Unavailable [phone] Unavailable [phone] Unavailable Unavailable Fiona Conrad Unavailable [phone] Atif Garcia MD Unavailable [phone] Dina Perez PA-C Unavailable Tiffani Farmer MD Unavailable [phone] Cydney Olivarez Unavailable [phone] Encounter Details Date Type Department Care Team (Late st Contact Info) Description 08/07/2024 [facility] Medical Advice [facility] Endocrinology Clinic [address] [place] [address] [facility] Social History Tobacco Use Types Packs/Day Years Used Date Smoking Tobacco: Never Smokeless Tobacco: Never Alcohol Use Standard Drinks/Week Comments Not Currently 0 (1 standard drink = 0.6 oz pur e alcohol) PHQ-2 Answer Date Recorded PHQ-2 Score 0 07/10/2024 Mullens Depression Scale Answer Date Recorded Last EPDS [...] on file 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 Gender Identity Not on file Sexual Orientation Not on file 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 office Not on file Not on file Not on file documented as of this encounter Plan of Treatment Upcoming Encounters Date Type Department Care Team (Late st Contact Info) Description 08/21/2024 10:00 AM MARINE ELECTRICIAN APPRENTICE Virtual Visit [facility] Diabetes Education [address] [place] [address] Flor Joseph [address] [place] [address]80635 09/08/2024 2:15 PM CDT Appointment [facility] Maternal Medicine [facility] [place] [address] [place] [phone] Kenya Keating MD [address] [place] [address] [place], [place] [address] 09/08/2024 2:45 PM CDT Office Visit [facility] Maternal Medicine [facility] [place] [address] [place] [phone] Kenya Keating MD [address] [place] [address] [place], [place] [address] 09/16/2024 3:30 PM CDT Office Visit [facility]'s [facility] [place] [address] [place] [phone] Shamar Pacheco MD [address] [place] [address] 09/17/2024 2:30 PM CDT Virtual Visit [facility] Endocrinology Clinic [place] 260099 [address] [phone] Renée Alanis PA-C [address] [place] [address] 09/22/2024 2:00 PM CDT Appointment [facility] Heart Care [address]50 [place] [phone] Kenya Keating MD [address] [place] [address] 400 [place] [address] 10/13/2024 3:30 PM CDT Office Visit [address] [address] Shamar Pacheco MD [address] [place] [address] 10/16/2024 2:30 PM CDT Virtual Visit [facility] Endocrinology [address] [phone] Renée Alanis PA-C [address] [place] [address] 11/10/2024 3:45 PM CDT Office Visit [facility] 303 [facility] [address] [place] [phone] Shamar Pacheco MD [address] [place] [address] 11/19/2024 2:30 PM CDT Virtual Visit [facility] Endocrinology Clinic [address] [phone] Renée Alanis PA-C [address] [address] 12/17/2024 2:30 PM CDT Virtual Visit [facility] Endocr[facility]ology Clinic [place] [address] [place] [phone] Renée Alanis PA-C 420 [facility] [address] [place] [address] 01/07/2025 1:30 PM CDT Virtual Visit [facility] Endocrinology [address] [phone] Renée Alanis PA-C [address] [place] [address] 01/11/2025 7:30 AM CDT Hospital Encounter [facility] [address] [place] [address] Shamar Pacheco MD [address] [place] [address] Modified White class B pregestational diabetes mellitus (Primary Dx); Multigravida of advanced maternal age in first trimester; Previous delivery, antepartum condition or complication 01/11/2025 7:30 AM CDT - 01/11/2025 9:00 AM CDT Surgery [facility] [address] [place] [address] Shamar Pacheco MD [address] [place] [address] REPEAT SECTION Scheduled Procedures Name Priority Associated [...] documented as of this encounter Care Teams Blown Film Extrusion Operator Relationship Specialty Start Date End Date Clinic, [address] [address] PCP - General 03/22/17 Shamar Pacheco MD [address] [place] [address] Assigned OBGYN Provider 10/09/[address] [address] Mechanical Ordnance Assembler Dietitian, Registered 10/16/[address] [address] Mechanical Ordnance Assembler Dietitian, Registered 11/02/21 Fiona Conrad [address] [place] [address] Mechanical Ordnance Assembler Dietitian, Registered 01/23/23 Atif Garcia MD [address] [address] cage unloader 05/01/24 Dina Perez PA-C [address] [place] [address] Physician Powerhouse Mechanic Supervisor Endocrinology, Diabetes, and Metabolism 06/02/24 Tiffani Farmer MD [address] [place] [address] Assigned Endocrinology Provider 06/15/24 Cydney Olivarez CHW Community Health Worker 08/13/2408/14 documented as of this encounter
--- OUTSIDE RECORDS SUMMARY | 2024-08-18 20:29 | XMS_ITS | Encounter Summary ---
Author Organization [facility] [place] [place] [address] Care Team Providers Care Cloud Infrastructure Architect Name Role Phone [facility], [facility] Primary Care Provider Shamar Pacheco MD Unavailable [phone] Unavailable [phone] Unavailable Unavailable Fiona Conrad Unavailable Atif Garcia MD Unavailable [phone] Dina Perez PA-C Unavailable Tiffani Farmer MD Unavailable [phone] Reason for Visit * Reason Comments Genetic Counseling Advanced maternal ag e * Consultation (Routine: Next available opening) - Pending Review Specialty Diagnoses / Procedures Referred By Contac t Referred To Contact Diagnoses Type 2 diabetes mellitus during , antepartum S/P repeat low transverse AMA (advanced maternal age) multigravida 35+ Roberta Mccarty MD [address] [place] [address] Phone: tel: fax: Referral ID Status Reason Start Date Expiration Date V isits Requested Visits Authorized [id number] Pending Review 07/16/2024 07/16/2025 1 1 Encounter Details Date Type Department Care Team (Latest Contact Info) Description 08/17/2024 1:30 PM WAX POT TENDER Office Visit [facility] Maternal Medicine [facility] [place] [address] [place] [address] Roberta Mccarty MD [address] [place] [address] Kenya Keating MD [address] [place] [address] Joanna Kirby GC [address] [place] [address] AMA (advanced maternal age) multigravida 35+ (Primary Dx); Type 2 diabetes mellitus during , antepartum; S/P repeat low transverse ; Modified White class B pregestational diabetes mellitus; Previous delivery, antepartum condition or complication; Encounter for procreative genetic counseling; Abnormal ultrasound; Multigravida of advanced maternal age in second trimester Social History Tobacco Use Types Packs/Day Years Used Date Smoking Tobacco: Never Smokeless Tobacco: Never Alcohol Use Standard Drinks/Week Comments Not Currently 0 (1 standard drink = 0.6 oz pur e alcohol) PHQ-2 Answer Date Recorded PHQ-2 Score 0 08/12/2024 [place] Depression Scale Answer Date Recorded Last EPDS [...] on file Legal Sex Female 3:17 AM WAX POT TENDER Gender Identity Not on file Sexual Orientation Not on file 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 Theindication for genetic counseling is advanced maternal age. The patient was accompanied to this visit by their partner, Greg. The session was conducted in Georgian. IMPRESSION/ PLAN 1. Holly had genetic screening earlier in this . Their non-invasive test was screen negative or low risk for screened conditions: trisomy 21, trisomy 18, trisomy 13, and sex chromosome aneuploidy. 2. During today's MF visit, Holly had a genetic counseling session only. Holly has already had genetic testing in this . Additional screening and diagnostic testing was discussed for the gestational age and declined. 3. Holly had a early second trimester anatomy ultrasound today. Please see the ultrasound report for further details. Holly also had a MFM consultation today. Please see the consult note for more details. 4. Further recommendations include a anatomy level II ultrasound with MFM. The upcoming ultrasound has been scheduled for 09/08/2024. HISTORY /Parity: Holly's history is significant for: 07/2020: SAB with her current partner 01/2021: SAB with her current partner 12/2021: Term delivery via c/s with her now healthy 2 year old daughter with her current partner 03/2023: Term delivery via c/s with her now healthy 1 year old daughter with her current partner CURRENT Current Age: [age] year old Age at Delivery: 34 year old MINO: 01/19/2025, by Ultrasound Gestational Age: 17w6d This is a single gestation. Holly denies bleeding, complications, illnesses, fevers, and exposure concerns. Fall risk assessment was negative. Pyelectasis Pyelectasis, or urinary tract dilation (UTD), is dilation of the renal pelvis. Most pregnancies with pyelectasis do not have any medical problems associated with this finding. However, this ultrasound finding is associated with an elevated chance for the to be affected with Down Syndrome.If non- invasive testing (NIPT) is low-risk, no further aneuploidy evaluation is recommended per [facility]. If NIPT has not been pursued there is a 1.6 times higher than the age-related risk for apregnancy to be affected by Down Syndrome. We discussed that most often pyelectasis resolves and requires no further medical attention. However, occassionally additional fluid can accumulate in the kidneys over the course of if there is a blockage or other abnormality of the ureter or kidney; if that happens, this can sometimes require medical attention after . Therefore, if seen on level II ultrasound, typically another ultrasound is recommended for later in to assess the kidneys and determine if a consult with nephrology is warranted. MEDICAL HISTORY Holly has a personal history of type 2 diabetes mellitis (T2DM) and had a [facility] consult today regarding this history. The average has a 3-5% chance of having a baby with a defect. Maternal diabetes increases that chance to 6- 10% and possibly up to 20% if it is poorly controlled in the first trimester. These defects can include spinal cord defects (spina bifida), heart defects, skeletal defects, and defects in the urinary, reproductive, and digestive systems. Diabetes in thepregnancy can also lead to complications such as pre-eclampsia, polyhydramnios, and delivery. Please see the [facility] consult note for further details. FAMILY HISTORY A three-generation pedigree was obtained today and is scanned under the Media tab in [employer]. The family history was reported by Holly and their partner. The following significant findings were reported today: Holly has a personal medical history of congenital cataracts. Her daughter (1y) also had congenital cataracts. We discussed that roughly half of childhood cataracts are caused by variants or changesin genes which code for proteins that are involved in lens structure or clarity. Many of these genes are autosomal dominant in nature. There are also autosomal recessive and X-linked cases. Next generation sequencing has identified aq cause in 75% of families with congenital cataracts. We discussedthat a referral to general genetics is available. Holly declined at this time, but will reconsidershould the couple desire another in the future. At this time, they plan this is their last . The couple shared a family history of mental illness. Holly's maternal half- sister (24y) has depression. Greg's father (56y) has bipolar disorder. Greg (31y) has ADHD. We discussed how mental illnesses are thought to be inherited in a multifactorial fashion, meaning many factors are involved in the development of these conditions. These factors usually include both genetic and environmental aspects and a combination of these aspects lead to the condition. Given that there is a genetic component, the couple's children may be at increased risk to develop a mental illness and were encouraged toshare this information with their tipple tender and have awareness for early signs and symptoms. The couple discussed that they both have family histories of diabetes. Diabetes is a complex genetic trait (a multifactorial condition) caused by the combination of genetic and environmental factors.Having a family history of diabetes can increase one's risk of also developing diabetes. For men with type I diabetes, their children have a 1 in 17 chance of developing diabetes during their lifetime. However, for woman with type I diabetes, if their child is born before 25 there is a 1 in 25 riskand if their child was born after 25 there is a 1 in 100 risk. If a parent develops diabetes beforeage 11, their child's risk is typically doubled. Furthermore, if both parents have type I diabetes,the risk is between 1 in 10 to 1 in 4. These risk numbers are an estimate and can be complicated bymany other factors such as autoimmune disorders and lifestyle choices. Therefore, there is currently no genetic testing we would offer the patient at this time to assess for diabetes risks in the current . We also reviewed that individuals with a family history of type II diabetesare generally thought to be at increased risk to develop type II diabetes. Therefore, it is important for individuals with a family history of type II diabetes to let their physicians to know about this family history, so they can be appropriate screened for diabetes. Greg has a cousin with autism. Some forms of autism spectrum disorders can be associated with specific genetic conditions, where we discussed that approximately 15-20% of individuals who have autism will have an identifiable genetic cause for this history. However, most often these conditions are due to the combination of genes and environmental factors that can affect development. Since there charity genetic component to autism spectrum disorders, the recurrence risk for other family members is higher among first-degree relatives of the individual with an autism spectrum disorder (full siblings), and decreases with distance in relationship to other second-degree relatives. Otherwise, the reported family history is unremarkable for multiple miscarriages, stillbirths, defects, intellectual disabilities, known genetic conditions, cancer <50y, and consanguinity. RISK ASSESSMENT FOR INHERITED CONDITIONS AND CARRIER SCREENING OPTIONS Expanded carrier screening is available to screen for autosomal recessive conditions and X-linked conditions in a large list of genes. Carrier screening does not test the but gives a risk assessment for the and future pregnancies to have the condition. Expanded carrier screeningis designed to identify carrier status for conditions that are primarily childhood or adolescent onset. Expanded carrier screening does not evaluate for adult-onset conditions such as hereditary cancer syndromes, dementia/ Alzheimer's disease, or cardiovascular disease risk factors. Additionally, expanded carrier screening is not comprehensive for all known genetic diseases or inherited conditions. Carrier screening does not test for all genetic and health conditions or risk factors. Autosomal recessive conditions happen when a mutation has been inherited from the egg and sperm andinclude conditions like cystic fibrosis, thalassemia, hearing loss, spinal muscular atrophy, and more. We reviewed that when both biological parents carry a harmful genetic change in a gene associated with autosomal recessive inheritance, each of their pregnancies has a 1 in 4 (25%) chance to be affected by that condition. X-linked conditions happen when a mutation has been inherited from the eggand include conditions like fragile X syndrome.With x-linked conditions, the specific risk generally depends on the chromosomal sex of the fetus, with XY individuals (generally male) being most severely affected. [place] screening was reviewed. About [place] Screening The patient does NOT have a family history of known inherited conditions. This does NOT mean the patient and/or their partner is not a carrier of a condition. Approximately 90% of couples at an increased reproductive risk for an inherited condition have no family history of that condition. The patient nor their partner have had carrier screening previously. The patient declined the carrier screening options. They are aware the option will remain, and theycan contact us if they would like to pursue screening. RISK ASSESSMENT FOR CHROMOSOME CONDITIONS We explained that the risk for chromosome abnormalities increases with maternal age. We discussed specific features of common chromosome abnormalities, including trisomy 21 (Down syndrome), trisomy 13, trisomy 18, and sex chromosome trisomies. At age 35 at delivery, the risk to have a baby with Down syndrome is 1 in 385. At age 35 at delivery, the risk to have a baby with any chromosome abnormality is 1 in 202. Holly had genetic screening earlier in this . Their non-invasive test was screennegative or low risk for screened conditions Non-invasive testing (NIPT) results Maternal plasma cell-free DNA testing Screens for trisomy 21, trisomy 13, trisomy 18, and sex chromosome aneuploidy First trimester ultrasound with nuchal translucency and nasal bone assessment was not performed in this , to our knowledge. Holly had a [facility] [employer] NIPT test earlier in ; we reviewed the results today, whichare low risk. The NIPT did include sex chromosome aneuploidies and the result was low risk. The predicted sex is XY, which is typically male. Given the accuracy of this test, these results greatly decrease the chance for certain chromosome abnormalities We discussed the limitations of normal NIPT results Maternal serum AFP only to screen for open neural tube defects (after 15 weeks) was not performed in this , to our knowledge. GENETIC TESTING OPTIONS Genetic testing during a includes screening and diagnostic procedures. Screening tests are non-invasive which means no risk to the and includes ultrasounds and blood work. The benefits and limitations of screening were reviewed. Screening tests provide a risk assessment (chance) specific to the for certain chromosome abnormalities but cannot definitively diagnose or exclude a chromosome abnormality. Follow-up genetic counseling and consideration of diagnostic testing is recommended with any abnormal screening result. Diagnostic testing during a is more certain and can test for more conditions. However, the tests do have a risk of miscarriage that requires careful consideration. These tests can detect chromosome ab normalities with greater than 99% certainty. Results can be compromised by maternal cell contamination or mosaicism and are limited by the resolution of current genetic testing technology. There is no screening or diagnostic test that detects all forms of defects or intellectual disability. We discussed the following screening options: Non-invasive testing (NIPT) Also called cell-free DNA screening because it detects chromosomes from the placenta in the person's blood Can be done any time after 10 weeks gestation Standard recommendation for NIPT screens for trisomy 21, trisomy 18, trisomy 13, with the option ofadding sex chromosome aneuploidies, without or without predicted sex Cannot screen for open neural tube defects, maternal serum AFP after 15 weeks is recommended New NIPT options include screening for other trisomies, microdeletion syndromes, and in some cases blood antigens. Guidelines do not recommend these conditions are included in standard screening. These options have limitations and should be discussed with a genetic counselor. However, current (2022) ACMG guidelines do recommend that screening for one microdeletion syndrome,called 22q11.2 deletion syndrome be offered to all patients. 22q11.2 deletion syndrome hasan estimated prevalence of 1 in 990 to 1 in 2148 (0.05-0.1%). Risk is not thought to increase with maternal age. Clinical features are variable but include congenital heart defects, cleft palate, developmental delays, immune system deficiencies, and hearing loss. Approximately 90% of cases are de girish (a sporadic new change in a ). Cell-free DNA screening for 22q11.2 deletion syndrome isavailable with the inclusion of other microdeletion syndromes. There is less data about the performance of cell-free DNA screening for more rare microdeletions and the chance for false positives or negative may be increased. There are limitations of cell-free DNA screening in detecting microdeletions and the possibility of false positives and false negatives. Microdeletion screening was not discussed. We discussed the following ultrasound options: 2/3 ultrasound (Early Second Trimester) Ultrasound between 14-18 weeks gestation Early anatomy ultrasound for major defects Commonly has suboptimal views due to early gestation so not a substitute for the 18-20w ultrasound Recommended for pregnancies with abnormal screening results, those interested in amniocentesis, or other risk factors Comprehensive level II ultrasound ( Anatomy Ultrasound) Ultrasound done between 18-20 weeks gestation Screens for major defects and markers for aneuploidy (like trisomy 21 and trisomy 18) Includes looking at the fetus/baby's growth, heart, organs (stomach, kidneys), placenta, and amniotic fluid Echocardiogram Ultrasound done between 22-24 weeks gestation Screen for heart defects Recommended if there are concerns about the heart or other indications like IVF , maternaldiabetes, or other ultrasound findings for concerns of a heart defect, such as a nuchal translucency greater than the 99th percentile in the first trimester We discussed the following diagnostic options: Amniocentesis Invasive diagnostic procedure done after 15 weeks gestation The procedure collects a small sample of amniotic fluid for the purpose of chromosomal testing and/or other genetic testing Diagnostic result; more than 99% sensitivity for chromosome abnormalities Testing for AFP in the amniotic fluid can test for open neural tube defects Amniocentesis was declined. It was a pleasure to be involved with [facility]???s care. I spent 60 minutes on the date of the encounter doing chart review, obtaining history, test coordination, documentation, and further activities as noted above. Joanna Kirby GC, MS, [facility] Board Certified and [place] Licensed Genetic Counselor [facility] Maternal Medicine Office: [facility]: [phone] [facility] POT TENDER documented in this encounter Plan of Treatment Upcoming Encounters Date Type Department Care Team (Late st Contact Info) Description 08/21/2024 10:00 AM WAX POT TENDER Virtual Visit [facility] Diabetes Education [address] [place] [phone] Flor Joseph [address] [place] [address] 09/08/2024 2:15 PM CDT Appointment [facility] Maternal Medicine [facility] [address] [place] [phone] Kenya Keating MD [address] [place], [place] [id number] 09/08/2024 2:45 PM CDT Office Visit [facility] Maternal Medicine [facility] [address] [place] [phone] Kenya Keating MD [address] [place], [place] [address] 09/16/2024 3:30 PM CDT Office Visit [facility] Women's Clinic [place] [address] [place] [phone] Shamar Pacheco MD [address] [place], [place] [address] 09/17/2024 2:30 PM CDT Virtual Visit [facility] Endocrinology [place] [id number] [address] [phone] Renée Alanis PA-C [address] [place] [address] [address] [place] [address] 09/22/2024 2:00 PM CDT Appointment [facility] [address] [place] [phone] Kenya Keating MD [address] [place] [address] [address] [place], [place] [address] 10/13/2024 3:30 PM CDT Office Visit [address] [phone] Shamar Pacheco MD [address] [place], [place] [address] 10/16/2024 2:30 PM CDT Virtual Visit [facility] Endocrinology [address] [phone] Renée Alanis PA-C [address] [place] [address] 11/10/2024 3:45 PM CDT Office Visit [facility] [address] [facility] [address] [place] [phone] Shamar Pacheco MD [address] [place], [place] [address] 11/19/2024 2:30 PM CDT Virtual Visit [facility] Endocrinology Clinic [address] [phone] Renée Alanis PA-C [address] [facility] [address] [place] [address] 12/17/2024 2:30 PM CDT Virtual Visit [facility] Endocrinology Clinic [address] 3rd [place] [phone] Renée Alanis PA-C [address] [facility] [address] [place] [address] 01/07/2025 1:30 PM CDT Virtual Visit [facility] Endocrinology Clinic [address] [place] [phone] Renée Alanis PA-C [address] [facility] [address] [place] [address] 01/11/2025 7:30 AM CDT Hospital Encounter [facility] [address] [place] [address] Shamar Pacheco MD [address] [place] [address] Modified White class B pregestational diabetes mellitus (Primary Dx); Multigravida of advanced maternal age in first trimester; Previous delivery, antepartum condition or complication 01/11/2025 7:30 AM CDT - 01/11/2025 9:00 AM CDT Surgery [facility] [address] [place] [phone] Shamar Pacheco MD [address] [place] [address] REPEAT SECTION Scheduled Procedures Name Priority Associated [...] condition or complication Type 2 diabetes mellitus during , antepartum S/P repeat low transverse delivery, without mention of indication, unspecified as to episode of care Multigravida of advanced maternal age in second trimester Modified White class B pregestational diabetes mellitus Previous delivery, antepartum condition or complication Encounter for procreative genetic counseling Abnormal ultrasound Abnormal findings on screening Multigravida of advanced maternal age in first [...] Total Score: 1 08/12/19 25 4:09 PM WAX POT TENDER documented as of this encounter Care Teams Cloud Infrastructure Architect Relationship Specialty Start Date End Date [facility], [address] [address] PCP - General 03/22/17 Shamar Pacheco MD [address] [place] [address] Assigned OBGYN Provider 10/09/[address] [address] Rn Documentation Specialist Dietitian, Registered 10/16/[address] [address] Rn Documentation Specialist Dietitian, Registered 11/02/21 Fiona Conrad [address] [place] [address] Rn Documentation Specialist Dietitian, Registered 01/23/23 Atif Garcia MD [address] [address] field care coordinator 05/01/24 Dina Perez PA-C [address] [place] [phone] Physician Senior Scrum Master Endocrinology, Diabetes, and Metabolism 06/02/24 Tiffani Farmer MD [address] [place] [address] [address] [place], [place] [address] Assigned Endocrinology Provider 06/15/24 documented as of this encounter
--- OUTSIDE RECORDS SUMMARY | 2024-08-18 20:29 | XMS_ITS | Encounter Summary ---
Author Organization [place] Address [address] [facility] [place] [address] Care Team Providers Care Systems Software Specialist Name Role Phone [facility], [facility] Primary Care Provider Royal Oconnor MD Unavailable Kellen Duran RD Unavailable [phone] Unavailable Unavailable Fiona Conrad Unavailable Atif Garcia MD Unavailable [phone] Dina Perez PA-C Unavailable Tiffani Farmer MD Unavailable [phone] Reason for Referral * Diagnostic Imaging Ultrasound (Routine) - Pending Review Specialty Diagnoses / Procedures Referred By Contac t Referred To Contact Radiology. Diagnoses Type 2 diabetes mellitus during , antepartum S/P repeat low transverse AMA (advanced maternal age) multigravida 35+ Procedures MFM US OB Complete 2/3 Tri Single Roberta Mccarty MD [address] [place] [address] Phone: tel: fax: Referral ID Status Reason Start Date Expiration Date V isits Requested Visits Authorized [id number] Pending Review 07/16/2024 07/16/2025 1 1 T DESK SPECIALIST * Consultation (Routine: Next available opening) - Pending Review Specialty Diagnoses / Procedures Referred By Contac t Referred To Contact Diagnoses Type 2 diabetes mellitus during , antepartum S/P repeat low transverse AMA (advanced maternal age) multigravida 35+ Roberta Mccarty MD [address] [place] [address] Phone: tel: fax: Referral ID Status Reason Start Date Expiration Date V isits Requested Visits Authorized [id number] Pending Review 07/16/2024 07/16/2025 1 1 Question Answer Office Visit Type: MFM Consult Comments Radiologic T DESK SPECIALIST * Consultation (Routine: Next available opening) - Pending Review Specialty Diagnoses / Procedures Referred By Contac t Referred To Contact Diagnoses Type 2 diabetes mellitus during , antepartum S/P repeat low transverse AMA (advanced maternal age) multigravida 35+ Roberta Mccarty MD [address] [place] [address] Phone: tel: fax: Referral ID Status Reason Start Date Expiration Date V isits Requested Visits Authorized [id number] Pending Review 07/16/2024 07/16/2025 1 1 T DESK SPECIALIST Encounter Details Date Type Department Care Team (Late st Contact Info) Description 07/16/2024 Orders Only [facility] [place] [address] [place] [address] Sue Louis RN Type 2 diabetes mellitus during , antepartum (Primary Dx); S/P repeat low transverse ; AMA (advanced maternal age) multigravida 35+ Social History Tobacco Use Types Packs/Day Years Used Date Smoking Tobacco: Never Smokeless Tobacco: Never Alcohol Use Standard Drinks/Week Comments Not Currently 0 (1 standard drink = 0.6 oz pur e alcohol) PHQ-2 Answer Date Recorded PHQ-2 Score 0 07/10/2024 [place] Depression Scale Answer Date Recorded Last EPDS [...] on file Legal Sex Female 3:17 AM FRONT DESK SPECIALIST Gender Identity Not on file Sexual Orientation Not on file 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 office Not on file Not on file Not on file documented as of this encounter Plan of Treatment Upcoming Encounters Date Type Department Care Team (Late st Contact Info) Description 08/21/2024 10:00 AM FRONT DESK SPECIALIST Virtual Visit [facility] [address] [place] [phone] Flor Joseph [address] [place] [address] 09/08/2024 2:15 PM CDT Appointment [facility] [place] [address] [facility] [address] [place] [phone] Kenya Keating MD [address] [address] [place] [address] [place] [phone] 09/08/2024 2:45 PM CDT Office Visit [facility] [address] [facility] [address] [place] [phone] Kenya Keating MD [address] [place] [address] 09/16/2024 3:30 PM CDT [facility] [address] [place] [phone] Royal Oconnor MD [address] [place] [address] 09/17/2024 2:30 PM CDT Virtual Visit [facility] [place] [phone] [facility] [address] [place] [phone] Renée Alanis PA-C [address] [place] [address] [place] [address] 09/22/2024 2:00 PM CDT Appointment [facility] [address] [place] [phone] eKnya Keating MD [address] [place] [address] [address] [place], [place] [phone] 10/13/2024 3:30 PM CDT Office Visit [facility] [address] [place] [phone] Royal Oconnor MD [address] [place] [address] 10/16/2024 2:30 PM CDT Virtual Visit [facility] [address] [phone] Renée Alanis PA-C [address] [place] [place] [address] [phone] 11/10/2024 3:45 PM CDT Office Visit [facility] [address] [place] [phone] Royal Oconnor MD [address] [place] [address] 11/19/2024 2:30 PM CDT Virtual Visit [facility] [address] [phone] Renée Alanis PA-C [address] [address] 12/17/2024 2:30 PM CDT Virtual Visit [facility] [address] [phone] Renée Alanis PA-C [address] [address] 01/07/2025 1:30 PM CDT Virtual Visit [facility] [address] [phone] Renée Alanis PA-C [address] [address] 01/11/2025 7:30 AM CDT Hospital Encounter [facility] [address] [place] [phone] Royal Oconnor MD [address] [place] [address] Modified White class B pregestational diabetes mellitus (Primary Dx); Multigravida of advanced maternal age in first trimester; Previous delivery, antepartum condition or complication 01/11/2025 7:30 AM CDT - 01/11/2025 9:00 AM CDT Surgery [facility] [address] [place] [phone] Royal Oconnor MD [address] [place] [address] REPEAT SECTION Scheduled Procedures Name Priority Associated Diagnoses Date/Ti me SECTION Modified White class B pregestational diabetes mellitus Multigravida of advanced maternal age in first trimester Previous delivery, antepartum condition or complication 01/11/2025 7:30 AM CDT Scheduled Referrals Name Type Priority Associated Diagnoses Orde r Schedule [facility] Genetic Counseling Referral Routine: Next available opening Type 2 diabetes mellitus during , antepartum S/P repeat low transverse AMA (advanced maternal age) multigravida 35+ Expected: 07/16/2024 (Approximate), Expires: 07/16/2025 [facility] Office Visit - [facility] Consult Referral Routine: Next available opening Type 2 diabetes mellitus during , antepartum S/P repeat low transverse AMA (advanced maternal age) multigravida 35+ Expected: 07/16/2024 (Approximate), Expires: 07/16/2025 documented as of this encounter Results * [facility] US OB Complete 2/3 Tri Single (08/17/2024 12:04 PM FRONT DESK SPECIALIST) Anatomical Region Laterality Modality Ultrasound 08/17/2024 11:0 8 AM FRONT DESK SPECIALIST Impressions 08/17/2024 1:44 PM FRONT DESK SPECIALIST IMPRESSION ----- 1. Duarte at 17w 6d gestational age. 2. There is urinary tract dilation (UTD-A1) with the left renal pelvis measuring 4.9mm. There is no calyceal dilation and the renal parenchyma is normal in appearance. No evidence of hydroureter and normal bladder. 3. No other anomalies commonly detected by ultrasound were identified in the detailed anatomic survey within the limits of ultrasound, however some views were suboptimal, as described above. 4. Growth parameters and estimated weight were measuring large for gestational age predicted by assigned MINO. 5. The amniotic fluid volume appeared normal. 6. On transabdominal imaging the cervix appeared long and closed. Narrative 08/17/2024 1:44 PM FRONT DESK SPECIALIST Trim ----- Pat. Name: HOLLY PAULINO Study Date: 08/17/2024 11:08am Pat. NO: [id number] Referring MD: ROYAL OCONNOR Site: [employer] Traffic Controller: Jacquelyn Grove RDMS : 1990 Age: 33 ----- INDICATION ----- Survey Pre-gestational Diabetes Type 2 METHOD ----- Transabdominal ultrasound examination. View: Sufficient ----- Duarte . Number of fetuses: 1 DATING ----- Date Details Gest. age MINO LMP 04/05/2024 19 w + 1 d 01/10/2025 Previous U/S 06/01/2024 GA, GA 6 w + 6 d 17 w + 6 d 01/19/2025 U/S 08/17/2024 based upon AC, BPD, Femur, HC 19 w + 3 d 01/08/2025 Assigned dating based on ultrasound (GA), selected on 08/17/2024 17 w + 6 d 01/19/2025 GENERAL EVALUATION ----- Cardiac activity present. FHR 150 bpm. movements: visualized. Presentation: breech Placenta: Posterior, No Previa, > 2 cm from internal os Umbilical cord: Cord vessels: 3 vessel cord Amniotic fluid: MVP 4.6 cm BIOMETRY ----- BPD 44.4 mm 19w 3d Hadlock OFD 58.9 mm 19w 2d Nicolaides HC 166.0 mm 19w 2d Hadlock Cerebellum tr 18.2 mm 18w 1d Nicolaides Nuchal fold 4.5 mm AC 147.6 mm 20w 0d 97% Hadlock Femur 28.3 mm 18w 5d Hadlock Humerus 29.9 mm 19w 6d Radha Weight Calculation: EFW 290 g >99% Hadlock EFW (lb,oz) 0 lb 10 oz EFW by Hadlock ([id number]) Head / Face / Neck Biometry: Special Projects Manager 6.0 mm CM 6.1 mm Nasal bone 4.9 mm Urinary Tract Biometry: Rt Renal pelvis ap 1.9 mm Lt Renal pelvis ap 4.9 mm ANATOMY ----- The following structures appear abnormal: Abdomen Left kidney: There is mild dilation of the renal pelvis without dilation of the calyces. Parenchyma is of normal echogenicity and thickness. (UTD A1: Low Risk). The following structures appear normal: Head / Neck Cranium. Head size. Head shape. Lateral ventricles. Choroid plexus. Midline falx. Cavum septi pellucidi. Cerebellum. Cisterna magna. Parenchyma. Thalami. Vermis. Neck. Nuchal fold. Face Profile. Nose. Maxilla. Mandible. Orbits. Lens. Heart / Thorax RVOT view. LVOT view. 2-wbjcde-aqlklnn view. Situs. Bicaval view. Ductal arch view. Superior vena cava. Inferior vena cava. Cardiac position. Cardiac size. Cardiac rhythm. Right lung. Left lung. Diaphragm. Abdomen Abdom. wall. Cord insertion. Stomach. Bladder. Liver. Bowel. Genitals. Spine Cervical spine. Thoracic spine. Lumbar spine. Extremities / Skeleton Arms. Right arm. Right hand. Left arm. Left hand. Legs. Right leg. Right foot. Left leg. Left foot. The following structures could not be adequately visualized: Face Lips. Heart / Thorax 4-chamber view: Subcostal view. 3-vessel view. Aortic arch view. Spine Sacral spine. sex: male. MATERNAL STRUCTURES ----- Cervix Visualized Appearance: normal Cervical length 39.7 mm Right Ovary Not visualized Left Ovary Not visualized RECOMMENDATION ----- Thank-you for referring your patient for ultrasound assessment. I discussed the findings on today's ultrasound with the patient. I reviewed the limitations of ultrasound both in detecting aneuploidy and structural abnormalities. Ultrasound, when views completed, can routinely detect 80-90% of structural abnormalities. She had low risk cell free DNA for genetic screening this . We reviewed that mild urinary tract dilation is seen in 1-2% of fetuses in the second trimester. This is most commonly a transient finding that resolves on subsequent scans, but may indicate impending kidney disease in about some cases. Urinary tract dilation can occur as a result of a blockage or congenital anatomic abnormality of the kidney, ureter, bladder or urethra, but is most commonly due to transient or physiologic changes. With increasing dilation (specifically > 10mm), there is increasing risk of associated renal/ureteral/bladder/urethral malformations. The cutoff for mild urinary tract dilation is 4 mm in the second trimester and 7 mm in the 3rd trimester. Additionally, mild urinary tract dilation can be associated with trisomy 21, however, given her low risk cell free DNA result, this finding today is not considered to be associated with aneuploidy. A follow up ultrasound to reevaluate the kidneys is recommended in the third trimester. If this finding is persistent pediatric urology follow-up is indicated. If it has resolved at her subsequent ultrasound then no evaluation is indicated. size is additionally measuring ahead of dates. We reviewed dating and agree with established dating. We reviewed that large for gestational age may be related to suboptimally controlled diabetes or could also reflect normal population variation. Recommend serial evaluation of growth. Follow-up is scheduled here in three weeks to reassess anatomy that was suboptimally seen today. For complete details of today's MFM consult, please see separate documentation in epic. Return to primary provider for continued care. If you have questions regarding today's evaluation or if we can be of further service, please contact the [facility]. anomalies may be present but not detected Procedure Note Kenya Keating MD - 08/17/2024 2nd / 3rd Trim ----- Pat. Name: HOLLY PAULINO Study Date: 08/17/2024 11:08am Pat. NO: [id number] Referring MD: ROYAL OCONNOR Site: [employer] Traffic Controller: Jacquely[place]ala Grove RDMS : 1990 Age: 33 ----- INDICATION ----- Survey Pre-gestational Diabetes Type 2 METHOD ----- Transabdominal ultrasound examination. View: Sufficient ----- Duarte . Number of fetuses: 1 DATING ----- DateDetailsGest. age MINO LMP w + 1 d 01/10/2025 Previous U/S 06/01/2024 GA, GA6 w + 6 d17 w + 6 d 01/19/2025 U/S 08/17/2024ased upon AC, BPD, Femur, HC19 w + 3 d 01/08/2025 Assigned dating based on ultrasound (GA), selected on08/17/2024 17w + 6 d 01/19/2025 GENERAL EVALUATION ----- Cardiac activity present. FHR 150 bpm. movements: visualized.Presentation: breech Placenta: Posterior, No Previa, > 2 cm from internal os Umbilical cord: Cord vessels: 3 vessel cord Amniotic fluid: MVP 4.6 cm BIOMETRY ----- BPD 44.4mm 19w 3dHadlock OFD 58.9mm 19w 2dNicolaides HC 166.0mm 19w 2dHadlock Cerebellum tr 18.2mm 18w 1dNicolaides Nuchal fold 4.5mm AC 147.6mm 20w 0d 97%Hadlock Femur 28.3mm 18w 5dHadlock Humerus 29.9mm 19w 6dJeanty Weight Calculation: EFW 290g >99%Hadlock EFW (lb,oz) 0 lb 10oz EFW by Hadlock([id number]) Head / Face / Neck Biometry: Special Projects Manager 6.0mm CM 6.1mm Nasal bone 4.9mm Urinary Tract Biometry: Rt Renal pelvis ap 1.9mm Lt Renal pelvis ap 4.9mm ANATOMY ----- The following structures appear abnormal: Abdomen Left kidney: There is mild dilation ofthe renal pelvis without dilation of the calyces. Parenchyma is of normalechogenicity and thickness. (UTD A1: Low Risk). The following structures appear normal: Head / Neck Cranium. Head size. Head shape.Lateral ventricles. Choroid plexus. Midline falx. Cavum septi pellucidi.Cerebellum. Cisterna magna. Parenchyma. Thalami. Vermis. Neck. Nuchal fold. Face Profile. Nose. Maxilla. Mandible.Orbits. Lens. Heart / Thorax RVOT view. LVOT view. 9-sciuok-nohksossuni. Situs. Bicaval view. Ductal arch view. Superior vena cava. Inferiorvena cava. Cardiac position. Cardiac size. Cardiac rhythm. Right lung. Left lung.Diaphragm. Abdomen Abdom. wall. Cord insertion. Stomach.Bladder. Liver. Bowel. Genitals. Spine Cervical spine. Thoracic spine.Lumbar spine. Extremities / Skeleton Arms. Right arm. Right hand. Left arm.Left hand. Legs. Right leg. Right foot. Left leg. Left foot. The following structures could not be adequately visualized: Face Lips. Heart / Thorax 4-chamber view: Subcostal view.3-vessel view. Aortic arch view. Spine Sacral spine. sex: male. MATERNAL STRUCTURES ----- Cervix Visualized Appearance: normal Cervical length 39.7 mm Right Ovary Not visualized Left Ovary Not visualized RECOMMENDATION ----- Thank-you for referring your patient for ultrasound assessment. I discussed the findings on today's ultrasound with the patient. Ireviewed the limitations of ultrasound both in detecting aneuploidy andstructural abnormalities. Ultrasound, when views completed, can routinely detect 80-90% of structuralabnormalities. She had low risk cell free DNA for genetic screeningthis . We reviewed that mild urinary tract dilation is seen in 1-2% of fetuses inthe second trimester. This is most commonly a transient finding thatresolves on subsequent scans, but may indicate impending kidney disease in about some cases.Urinary tract dilation can occur as a result of a blockage or congenitalanatomic abnormality of the kidney, ureter, bladder or urethra, but is most commonly due totransient or physiologic changes. With increasing dilation (specifically >10mm), there is increasing risk of associated renal/ureteral/bladder/urethral malformations. The cutofffor mild urinary tract dilation is 4 mm in the second trimester and 7 mmin the 3rd trimester. Additionally, mild urinary tract dilation can be associated with [id number], however, given her low risk cell free DNA result, this findingtoday is not considered to be associated with aneuploidy. A follow up ultrasound to reevaluate the fetalkidneys is recommended in the third trimester. If this finding ispersistent pediatric urology follow-up is indicated. If it has resolved at her subsequentultrasound then no evaluation is indicated. size is additionally measuring ahead of dates. We reviewed pregnancydating and agree with established dating. We reviewed that large forgestational age may be related to suboptimally controlled diabetes or could also reflect normalpopulation variation. Recommend serial evaluation of growth. Follow-up is scheduled here in three weeks to reassess anatomy that wassuboptimally seen today. For complete details of today's MFM consult,please see separate documentation in epic. Return to primary provider for continued care. If you have questions regarding today's evaluation or if we can be offurther service, please contact the [facility]. anomalies may be present but not detected IMPRESSION ----- 1. Duarte at 17w 6d gestational age. 2. There is urinary tract dilation (UTD-A1) with the left renalpelvis measuring 4.9mm. There is no calyceal dilation and the renalparenchyma is normal in appearance. No evidence of hydroureter and normal bladder. 3. No other anomalies commonly detected by ultrasound wereidentified in the detailed anatomic survey within the limits ofprenatal ultrasound, however some views were suboptimal, as described above. 4. Growth parameters and estimated weight were measuring large forgestational age predicted by assigned MINO. 5. The amniotic fluid volume appeared normal. 6. On transabdominal imaging the cervix appeared long and closed. us Roberta [facility] ORDERABLES Edited Re sult - Final documented in this encounter Visit Diagnoses Diagnosis Modified White class B pregestational diabetes mellitus- Primary Multigravida of advanced maternal age in first trimester Previous delivery, antepartum condition or complication Type 2 diabetes mellitus during , antepartum- Primary S/P repeat low transverse delivery, without mention of indication, unspecified as to episode of care AMA (advanced maternal age) multigravida 35+ Elderly multigravida with antepartum condition or complication Type 2 diabetes mellitus during , antepartum S/P repeat low transverse delivery, without mention of indication, unspecified as to episode of care AMA (advanced maternal age) multigravida 35+ Elderly [...] documented as of this encounter Care Teams Systems Software Specialist Relationship Specialty Start Date End Date [facility], [place] [id number] [place] [address] PCP - General 03/22/17 Royal Oconnor MD [address] [place] [address] Assigned OBGYN Provider 10/09/[address] [address] Front Desk Specialist Dietitian, Registered 10/16/[address] [address] Front Desk Specialist Dietitian, Registered 11/02/21 Fiona Conrad [address] [place] [address] Front Desk Specialist Dietitian, Registered 01/23/23 Atif Garcia MD [address] [facility] [address] [place] [address] filter pulp washer 05/01/24 Dina Perez PA-C [address] [place] [address] Physician [employer] Endocrinology, Diabetes, and Metabolism 06/02/24 Tiffani Farmer MD [address] [place] [address] [address] [place] [address] Assigned Endocrinology Provider 06/15/24 documented as of this encounter
--- OUTSIDE RECORDS SUMMARY | 2024-08-18 20:29 | XMS_ITS | Encounter Summary ---
Author Organization [place] Address [address] [facility] [place] [address] Care Team Providers Care Thrill Performer Name Role Phone [facility], [facility] Primary Care Provider Shamar Oconnor MD Unavailable Kellen Duran RD Unavailable [phone] Unavailable Unavailable Fiona Conrad Unavailable Atif Garcia MD Unavailable [phone] Dina Perez PA-C Unavailable Tiffani Farmer MD Unavailable [phone] Reason for Visit * Reason Onset Date Comments Schedule Surgery 07/15/2024 sectio n Encounter Details Date Type Department Care Team (Late st Contact Info) Description 07/15/2024 Telephone [facility]'s [facility] [place] [address] [place] [address] Shamar Oconnor MD [address] [place] [address] Schedule Surgery ( section) Social History Tobacco Use Types Packs/Day Years Used Date Smoking Tobacco: Never Smokeless Tobacco: Never Alcohol Use Standard Drinks/Week Comments Not Currently 0 (1 standard drink = 0.6 oz pur e alcohol) PHQ-2 Answer Date Recorded PHQ-2 Score 0 07/10/2024 Gile Depression Scale Answer Date Recorded Last EPDS [...] on file Legal Sex Female 3:17 AM RUBBER CUTTER Gender Identity Not on file Sexual Orientation Not on file 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 office Not on file Not on file Not on file documented as of this encounter Miscellaneous Notes * Telephone Encounter - Kelli Reilly - 07/17/2024 8:18 AM CST Type of surgery: SECTION Location of surgery: [facility] Date and time of surgery: 01/11/25 @ 7:30 AM Surgeon: DR OCONNOR Pre-Op Appt Date: @ APPOINTMENT Post-Op Appt Date: Packet sent out: Yes Pre-cert/Authorization completed: No Date: 07/16/24 ER CUTTER * Telephone Encounter - Kelli Reilly - 07/15/2024 3:44 PM CST Patient Name: Holly Oliva Case#: [id number] Surgeons and Role: * Shamar Oconnor MD - Primary Date requested: 01/11/2025 Location: [facility] L+D Procedure(s): SECTION (N/A) Requested Time: 7:30 AM ER CUTTER documented in this encounter Plan of Treatment Upcoming Encounters Date Type Department Care Team (Late st Contact Info) Description 08/21/2024 10:00 AM RUBBER CUTTER Virtual Visit [facility] Diabetes Education [address] [place] [phone] Jake Flor J [address] [place] [phone] 09/08/2024 2:15 PM CDT Appointment [facility] Maternal Medicine [facility] [address] [place] [phone] Kenya Keating MD [address] [place], [place] [address] 09/08/2024 2:45 PM CDT Office Visit [facility] Maternal Medicine [facility] [address] [place] [phone] Kenya Keating MD [address] [place], [place] [phone] 09/16/2024 3:30 PM CDT Office Visit [facility] [place] [address] [facility] [address] [place] [phone] Shamar Oconnor MD [address] [place] [address] 09/17/2024 2:30 PM CDT Virtual Visit [facility] Endocrinology Clinic [address] [phone] Renée Alanis PA-C [address] [facility] 803 [place] [address] 09/22/2024 2:00 PM CDT Appointment [facility] Heart Care [address]50 [place] [phone] Kenya Keating MD [address] [place] [address] 10/13/2024 3:30 PM CDT Office Visit [address] [place] [address] Shamar Oconnor MD [address] [place] [address] 10/16/2024 2:30 PM CDT Virtual Visit [facility] Endocrinology [address] [phone] Renée Alanis PA-C [address] [place] [address] [place] [address] 11/10/2024 3:45 PM CDT Office Visit [address] [phone] Shamar Oconnor MD [address] [place] [address] 11/19/2024 2:30 PM CDT Virtual Visit [facility] Endocrinology [address] [phone] Renée Alanis PA-C [address] [place] [address] [place] [address] 12/17/2024 2:30 PM CDT Virtual Visit [facility] Endocrinology [address] [phone] Renée Alanis PA-C [address] [facility] [address] [place] [address] [id number] 01/07/2025 1:30 PM CDT Virtual Visit [facility] Endocrinology Clinic [place] [address] [facility] [address] 3rd [place] [phone] Renée Alanis PA-C [address] [place] [address] 803 [place] [address] 01/11/2025 7:30 AM CDT Hospital Encounter [facility] [address] [place] [address] Shamar Oconnor MD [address] [place] [address] Modified White class B pregestational diabetes mellitus (Primary Dx); Multigravida of advanced maternal age in first trimester; Previous delivery, antepartum condition or complication 01/11/2025 7:30 AM CDT - 01/11/2025 9:00 AM CDT Surgery [facility] [address] [place] [address] Shamar Oconnor MD [address] [place] [address] REPEAT SECTION Scheduled Procedures Name Priority Associated [...] documented as of this encounter Care Teams Thrill Performer Relationship Specialty Start Date End Date [facility], [facility] [id number] [place] [address] PCP - General 03/22/17 Shamar Oconnor MD [address] [place] [address] Assigned OBGYN Provider 10/09/[address] [address] Movie Shot Cameraman Dietitian, Registered 10/16/[address] [address] Movie Shot Cameraman Dietitian, Registered 11/02/21 Fiona Conrad [address] [place] [address] Movie Shot Cameraman Dietitian, Registered 01/23/23 Atif Garcia MD [address] [address] recycling assistant 05/01/24 Dina Perez PA-C [address] [place] [address] Physician Special Forces Medical Sergeant Endocrinology, Diabetes, and Metabolism 06/02/24 Tiffani Farmer MD [address] [place] [address] Assigned Endocrinology Provider 06/15/24 documented as of this encounter
--- OUTSIDE RECORDS SUMMARY | 2024-08-18 20:29 | XMS_ITS | Encounter Summary ---
Author Organization [place] Address [facility] [place] [address] Care Team Providers Care Market Investigator Name Role Phone [facility], [facility] Primary Care Provider Shamar Pacheco MD Unavailable Kellen Duran RD Unavailable [phone] Unavailable Unavailable Fiona Conrad Unavailable [phone] Atif Garcia MD Unavailable [phone] Dina Perez PA-C Unavailable Tiffani Farmer MD Unavailable [phone] Reason for Visit * Reason Onset Date Comments Appointment 08/07/2024 Monthly GDM appt s w /TIFFANIE Encounter Details Date Type Department Care Team (Late st Contact Info) Description 08/07/2024 Telephone [facility] Endocrinology Clinic [place] [address] [facility] 3rd [place] [address] Tiffani Farmer MD [address] [facility] [address] [place] [address] Appointment (Monthly GDM appts chino GLASS/TIFFANIE) Social History Tobacco Use Types Packs/Day Years Used Date Smoking Tobacco: Never Smokeless Tobacco: Never Alcohol Use Standard Drinks/Week Comments Not Currently 0 (1 standard drink = 0.6 oz pur e alcohol) PHQ-2 Answer Date Recorded PHQ-2 Score 0 07/10/2024 Aragon Depression Scale Answer Date Recorded Last EPDS [...] on file Legal Sex Female 3:17 AM 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 REGISTERED 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 Gender Identity Not on file Sexual Orientation Not on file 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 Would you be able to schedule her with Dr. Farmer (who she saw before) or one of the Endo PA's? Thanks! Annemarie Chavez, RD, LD [facility] Derrick Boat Captain Examples for August schedulin/25 Nithya virtual csc 09/16 Alanis virtual csc 09/17 Alanis virtual csc 09/18 Alanis virtual csc Examples for September schedulin/22 Nithya virtual csc 10/14 Alanis virtual csc 10/16 Alanis virtual csc 10/16 Alanis virtual csc Examples for October schedulin/13 Nithya virtual csc 11/04 Alanis virtual csc 11/05 Alanis virtual csc 11/06 Alanis virtual csc *Appts in solutions for November & December 2024* Please note that the above appointment(s) will require manual scheduling as they are marked as MERLE and will not appear using auto search. Do not schedule the patient if another patient has already been scheduled in the requested appointment slot. Minoo Terry on 08/07/2024 at 12:21 PM ATRIC REGISTERED NURSE documented in this encounter Plan of Treatment Upcoming Encounters Date Type Department Care Team (Late st Contact Info) Description 08/21/2024 10:00 AM PEDIATRIC REGISTERED NURSE Virtual Visit [facility] Diabetes Education [address] [phone] Flor Joseph [address] [place] [address] 09/08/2024 2:15 PM CDT Appointment [facility] Maternal Medicine [facility] [address] [place] [phone] Kenya Keating MD [address] [place], [place] [address] 09/08/2024 2:45 PM CDT Office Visit [facility] Maternal Medicine [facility] [address] [place] [phone] Kenya Keating MD [address] [place], [place] [address] 09/16/2024 3:30 PM CDT Office Visit [facility] Women's Clinic [place] [address] [place] [place] [phone] Shamar Pacheco MD [address] [place] [address] 09/17/2024 2:30 PM CDT Virtual Visit [facility] Endocrinology Clinic [address] [phone] Renée Alanis PA-C [address] [facility] [address] [place] [address] 09/22/2024 2:00 PM CDT Appointment [facility] Heart Care [address] [facility] [phone] Kenya Keating MD [address] [facility] [address] [place] [address] 10/13/2024 3:30 PM CDT Office Visit [address] [phone] Shamar Pacheco MD [address] [place], [place] [address] 10/16/2024 2:30 PM CDT Virtual Visit [facility] Endocrinology Clinic [address] [place] [phone] Renée Alanis PA-C [address] [address] 11/10/2024 3:45 PM CDT Office Visit [address] [phone] Shamar Pacheco MD [address] [place] [address] 11/19/2024 2:30 PM CDT Virtual Visit [facility] Endocrinology Clinic [address] [place] [phone] Renée Alanis PA-C [address] [place] [address] [address] 12/17/2024 2:30 PM CDT Virtual Visit [facility] Endocrinology Clinic [address] [place] [phone] Renée Alanis PA-C 420 [facility] [address] [place] [address] 01/07/2025 1:30 PM CDT Virtual Visit [facility] Endocrinology Clinic [address] [place] [phone] Renée Alanis PA-C 420 [facility] [address] [place] [address] 01/11/2025 7:30 AM CDT Hospital Encounter [facility] [address] [place] [address] Shamar Pacheco MD [address] [place] [address] Modified White class B pregestational diabetes mellitus (Primary Dx); Multigravida of advanced maternal age in first trimester; Previous delivery, antepartum condition or complication 01/11/2025 7:30 AM CDT - 01/11/2025 9:00 AM CDT Surgery [facility] [address] [place] [address] Shamar Pacheco MD [address] [place] [address] REPEAT SECTION Scheduled Procedures Name Priority Associated [...] documented as of this encounter Care Teams Market Investigator Relationship Specialty Start Date End Date Clinic, [facility] [address] [place] [address] PCP - General 03/22/17 Shamar Pacheco MD [address] [place] [address] Assigned OBGYN Provider 10/09/[address] [address] Derrick Boat Captain Dietitian, Registered 10/16/[address] [address] Derrick Boat Captain Dietitian, Registered 11/02/21 Fiona Conrad [address] [place] [address] Derrick Boat Captain Dietitian, Registered 01/23/23 Atif Garcia MD [address] [address] wet wash assembler 05/01/24 Dina Perez PA-C [address] [place] [address] [id number] Physician Primer Boxer Endocrinology, Diabetes, and Metabolism 06/02/24 Tiffani Farmer MD [address] [place] [address] Assigned Endocrinology Provider 06/15/24 documented as of this encounter
--- OUTSIDE RECORDS SUMMARY | 2024-08-18 20:29 | XMS_ITS | Encounter Summary ---
Author Organization [place] Address [facility] [place] [address] Care Team Providers Care Music Director Name Role Phone Clinic, [facility] Primary Care Provider Shamar Pacheco MD Unavailable [phone] Unavailable [phone] Unavailable Unavailable Fiona Conrad Unavailable Atif Garcia MD Unavailable [phone] Dina Perez PA-C Unavailable Tiffani Farmer MD Unavailable [phone] Cydney Olivarez Unavailable [phone] Encounter Details Date Type Department Care Team (Late st Contact Info) Description 07/21/2024 [facility] Medical Advice [facility] Diabetes Education [address] [place] [address] Flor Joseph [address] [place] [address] [id number] Social History Tobacco Use Types Packs/Day Years Used Date Smoking Tobacco: Never Smokeless Tobacco: Never Alcohol Use Standard Drinks/Week Comments Not Currently 0 (1 standard drink = 0.6 oz pur e alcohol) PHQ-2 Answer Date Recorded PHQ-2 Score 0 07/10/2024 [place] Depression Scale Answer Date Recorded Last EPDS [...] on file Legal Sex Female 3:17 AM BEAN 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 Gender Identity Not on file Sexual Orientation Not on file 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 office Not on file Not on file Not on file documented as of this encounter Plan of Treatment Upcoming Encounters Date Type Department Care Team (Late st Contact Info) Description 08/21/2024 10:00 AM BEAN SPROUT LABORER Virtual Visit [facility] Diabetes Education [address] [place] [address] Flor Joseph [address] [place] [address] 09/08/2024 2:15 PM CDT Appointment [facility] Maternal Medicine [facility] [address] [place] [phone] Kenya Keating MD [address] [address] 95[address] 09/08/2024 2:45 PM CDT Office Visit [facility] Maternal Medicine [facility] [place] [address] [place] [phone] Kenya Keating MD [address] [address] 09/16/2024 3:30 PM CDT Office Visit [facility] Women's Clinic [place] [address] [place] [address] Shamar Pacheco MD [address] [place] [address] 09/17/2024 2:30 PM CDT Virtual Visit [facility] Endocrinology Clinic [address] [place] [phone] Renée Alanis PA-C [address] [place] [address] 09/22/2024 2:00 PM CDT Appointment [facility] [address] [place] [phone] Kenya Keating MD [address] [place] [address] 400 [place], [place] [address] 10/13/2024 3:30 PM CDT Office Visit [facility] [address] [phone] Shamar Pacheco MD [address] [place] [address] 10/16/2024 2:30 PM CDT Virtual Visit [facility] Endocrinology Clinic [address] [phone] Renée Alanis PA-C [address] [address] 11/10/2024 3:45 PM CDT Office Visit [facility] [address] [place] [phone] Shamar Pacheco MD [address] [place] [address] 11/19/2024 2:30 PM CDT Virtual Visit [facility] Endocrinology Clinic [address] [phone] Renée Alanis PA-C [address] [address] 12/17/2024 2:30 PM CDT Virtual Visit [facility] Endocrinology Clinic [address] [phone] Renée Alanis PA-C [address] [address] 01/07/2025 1:30 PM CDT Virtual Visit [facility] Endocrinology [address] [phone] Renée Alanis PA-C [address] [address] 01/11/2025 7:30 AM CDT Hospital Encounter [facility] [address] [place] [address] Shamar Pacheco MD [address] [place] [address] Modified White class B pregestational diabetes mellitus (Primary Dx); Multigravida of advanced maternal age in first trimester; Previous delivery, antepartum condition or complication 01/11/2025 7:30 AM CDT - 01/11/2025 9:00 AM CDT Surgery [facility] [address] [place] [address] Shamar Pacheco MD [address] [place] [address] REPEAT SECTION Scheduled Procedures Name Priority Associated [...] documented as of this encounter Care Teams Music Director Relationship Specialty Start Date End Date [facility], [address] [address] PCP - General 03/22/17 Shamar Pacheco MD [address] [place] [address] Assigned OBGYN Provider 10/09/[address] [address] Farm Implement Engine Mechanic Dietitian, Registered 10/16/[address] [address] Farm Implement Engine Mechanic Dietitian, Registered 11/02/21 Fiona Conrad [address] [place] [address] Farm Implement Engine Mechanic Dietitian, Registered 01/23/23 Atif aGrcia MD [address] [address] programmer developer 05/01/24 Dina Perez PA-C 500 [place] [address] Physician Geospatial Extractor Analysis Endocrinology, Diabetes, and Metabolism 06/02/24 Tiffani Farmer MD 420 [facility] 101 [place], [place] [address] Assigned Endocrinology Provider 06/15/24 Cydney Olivarez Lori Community Health Worker 08/13/2408/14 documented as of this encounter
--- OUTSIDE RECORDS SUMMARY | 2024-08-18 20:29 | XMS_ITS | Encounter Summary ---
Author Organization [place] Address [facility] [place] [address] Care Team Providers Care Indexer Name Role Phone [facility], [facility] Primary Care Provider Shamar Pacheco MD Unavailable Kellen Duran RD Unavailable [phone] Unavailable Unavailable Fiona Conrad Unavailable [facility] - [facility]idel Garr[facility] Unavailable Atif Garcia MD Unavailable [phone] Dina Perez PA-C Unavailable Tiffani Farmer MD Unavailable [phone] Cydney Olivarez Unavailable [phone] Encounter Details Date Type Department Care Team (Late st Contact Info) Description 01/21/2023 MyC Medical Advice M [address] [address] Aubree Mitchell, RD [address] [place] [address] Type 2 diabetes mellitus without complication, without long-term current use of insulin (H) (Primary [...] on file Legal Sex Female 3:17 AM 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 Gender Identity Not on file Sexual Orientation [...] st Contact Info) Description 08/21/2024 10:00 AM BILLPOSTING SUPERVISOR Virtual Visit [facility] Diabetes Education [address] [place] [address] Flor Joseph [address] [place] [address] 047425 09/08/2024 2:15 PM CDT Appointment [facility] Maternal Medicine [facility] [address] [place] [phone] Kenya Keating MD [address] [place] [address] [place] [address] 722414 09/08/2024 2:45 PM CDT Office Visit [facility] Maternal Medicine [facility] [address] [place] [phone] Kenya Keating MD [address] [place], [place] [address] 09/16/2024 3:30 PM CDT Office Visit [facility] [address] [place] [phone] Shamar Pacheco MD [address] [place] [address] 09/17/2024 2:30 PM CDT Virtual Visit [facility] Endocrinology [place] [address] [facility] [place] [phone] Renée Alanis PA-C [address] [phone] 09/22/2024 2:[address] [facility] Heart Care [address] [place] [phone] Kenya Keating MD [address] [place] [address] [id number] 10/13/2024 3:30 PM CDT Office Visit [place] [address] [address] [place] [phone] Shamar Pacheco MD [address] [place] [address] 10/16/2024 2:30 PM CDT Virtual Visit [facility] Endocrinology [place] [phone] [phone] Renée Alanis PA-C [address] 168[address] 11/10/2024 3:45 PM CDT Office Visit [facility] [address] [place] [address] Shamar Pacheco MD [address] [facility] [place] [address] 11/19/2024 2:30 PM CDT Virtual Visit [facility] Endocrinology [address] [phone] Renée Alanis PA-C [address] [address] 12/17/2024 2:30 PM CDT Virtual Visit [facility] Endocrinology [address] [phone] Renée Alanis PA-C [address] [address] 01/07/2025 1:30 PM CDT Virtual Visit [facility] Endocrinology [address] [phone] Renée Alanis PA-C [address] [address] 01/11/2025 7:30 AM CDT Hospital Encounter [facility] [address] [place] [address] Shamar Pacheco MD [address] [place] [address] Modified White class B pregestational diabetes mellitus (Primary Dx); Multigravida of advanced maternal age in first trimester; Previous delivery, antepartum condition or complication 01/11/2025 7:30 AM CDT - 01/11/2025 9:00 AM CDT Surgery [facility] [address] [place] [address] Shamar Pacheco MD [address] [place] [address] REPEAT SECTION Scheduled Procedures Name Priority Associated Diagnoses Date/Ti me SECTION Modified White class B pregestational diabetes mellitus Multigravida of advanced maternal age in first trimester Previous delivery, antepartum condition or complication 01/11/2025 7:30 AM CDT documented as of this encounter Visit Diagnoses Diagnosis Type 2 diabetes mellitus without complication, without long-term current use of insulin (H)- Primary [...] documented as of this encounter Care Teams Indexer Relationship Specialty Start Date End Date [facility], [facility] [address] [place] [address] PCP - General 03/22/17 Shamar Pacheco MD [address] [place] [address] Assigned OBGYN Provider 10/09/[address] [address] Supervisor Assembly Room Dietitian, Registered 10/16/[address] [address] Supervisor Assembly Room Dietitian, Registered 11/02/21 Fiona Conrad [address] [place] [address] Supervisor Assembly Room Dietitian, Registered 01/23/23 [facility] Hema [facility] [address] [place] [address] Assigned PCP 07/18/23 03/15/24 Atif Garcia MD [address] [address] screening technician 05/01/24 Dina Perez PA-C [address] [place] [address] Physician Regrinder Endocrinology, Diabetes, and Metabolism 06/02/24 Tiffani Farmer MD [address] [place] [address] Assigned Endocrinology Provider 06/15/24 Cydney Olivarez CHW Community Health Worker 08/13/2408/14 documented as of this encounter
--- OUTSIDE RECORDS SUMMARY | 2024-08-18 20:29 | XMS_ITS | Encounter Summary ---
Author Organization [place] Address [address] [facility] [address] Care Team Providers Care Furnace Operator And Tender Name Role Phone [facility], [facility] Primary Care Provider Shamar Pacheco MD Unavailable Kellen Duran RD Unavailable [phone] Unavailable Unavailable Fiona Conrad Unavailable [phone] Atif Garcia MD Unavailable [phone] Dina Perez PA-C Unavailable Tiffani Farmer MD Unavailable [phone] Cydney Olivarez Unavailable [phone] Encounter Details Date Type Department Care Team (Late st Contact Info) Description 07/23/2024 [facility] Endocrinology Clinic [place] [address] [facility] [address] [place] [address] Ni Monge CMA Social History Tobacco Use Types Packs/Day Years Used Date Smoking Tobacco: Never Smokeless Tobacco: Never Alcohol Use Standard Drinks/Week Comments Not Currently 0 (1 standard drink = 0.6 oz pur e alcohol) PHQ-2 Answer Date Recorded PHQ-2 Score 0 07/10/2024 [place] Depression Scale Answer Date Recorded Last EPDS [...] on file Legal Sex Female 3:17 AM FORCE ADJUSTMENT SUPERVISOR Gender Identity Not on file Sexual Orientation Not on file 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 office Not on file Not on file Not on file documented as of this encounter Plan of Treatment Upcoming Encounters Date Type Department Care Team (Late st Contact Info) Description 08/21/2024 10:00 AM FORCE ADJUSTMENT SUPERVISOR Virtual Visit [facility] Diabetes Education [address] [place] [address] Flor Joseph [address] [place] [address] 09/08/2024 2:15 PM CDT Appointment [facility] Maternal Medicine [facility] [place] [address] [place] [phone] Kenya Keating MD [address] [place] [address] [place] [address] 09/08/2024 2:45 PM CDT Office Visit [facility] Maternal Medicine [facility] [place] [address] [place] [phone] Kenya Keating MD [address] [place], [place] [address] 09/16/2024 3:30 PM CDT Office Visit [facility] Women's Clinic [place] [address] [place] [address] [place] [phone] Shamar Pacheco MD [address] [place] [address] 09/17/2024 2:30 PM CDT Virtual Visit [facility] Endocrinology Clinic [address] [phone] Renée Alanis PA-C [address] [place] [address] [place] [address] 09/22/2024 2:00 PM CDT Appointment [facility] Heart Care [address] [place] [phone] Kenya Keating MD [address] [place] [address] 10/13/2024 3:30 PM CDT Office Visit [address] [phone] Shamar Pacheco MD [address] [place] [address] 10/16/2024 2:30 PM CDT Virtual Visit [facility] Endocrinology [address] [phone] Renée Alanis PA-C [address] [place] [address] 11/10/2024 3:45 PM CDT Office Visit [address] [phone] Shamar Pacheco MD [address] [place] [address] 11/19/2024 2:30 PM CDT Virtual Visit [facility] Endocrinology [address] [phone] Renée Alanis PA-C [address] [address] 12/17/2024 2:30 PM CDT Virtual Visit [facility] Endocrinology [address] [phone] Renée Alanis PA-C [address] [address] 01/07/2025 1:30 PM CDT Virtual Visit [facility] Endocrinology [address] [phone] Renée Alanis PA-C [address] [address] 01/11/2025 7:30 AM CDT Hospital Encounter [facility] [address] [place] [address] Shamar Pacheco MD [address] [place] [address] Modified White class B pregestational diabetes mellitus (Primary Dx); Multigravida of advanced maternal age in first trimester; Previous delivery, antepartum condition or complication 01/11/2025 7:30 AM CDT - 01/11/2025 9:00 AM CDT Surgery [facility] [address] [place] [address] Shamar Pacheco MD [address] [place] [address] REPEAT SECTION Scheduled Procedures Name Priority Associated [...] documented as of this encounter Care Teams Furnace Operator And Tender Relationship Specialty Start Date End Date [facility] [id number] [place] [address] PCP - General 03/22/17 Shamar Pacheco MD [address] [place] [address] Assigned OBGYN Provider 10/09/[address] [address] Human Resources Executive Assistant Dietitian, Registered 10/16/[address] [address] Human Resources Executive Assistant Dietitian, Registered 11/02/21 Fiona Conrad [address] [place] [address] Human Resources Executive Assistant Dietitian, Registered 01/23/23 Atif Garcia MD [address] [address] prn occupational therapist 05/01/24 Dina Perez PA-C [address] [place] [address] Physician Portable Grinding Machine Operator Endocrinology, Diabetes, and Metabolism 06/02/24 Tiffani Farmer MD [address] [place] [address] Assigned Endocrinology Provider 06/15/24 Cydney Olivarez CHW Community Health Worker 08/13/2408/14 documented as of this encounter
--- OUTSIDE RECORDS SUMMARY | 2024-08-18 20:29 | XMS_ITS | Encounter Summary ---
Author Organization [place] Address [address] [facility] [place] [address] Care Team Providers Care Cataloging Assistant Name Role Phone [facility], [facility] Primary Care Provider Shamar Pacheco MD Unavailable Kellen Duran RD Unavailable [phone] Unavailable Unavailable Fiona Conrad Unavailable [phone] [facility] Unavailable Atif Garcia MD Unavailable [phone] Dina Perez PA-C Unavailable Tiffani Farmer MD Unavailable [phone] Cydney Olivarez Unavailable [phone] Encounter Details Date Type Department Care Team (Late st Contact Info) Description 11/03/2021 MyC Medical Advice [facility] Women's [facility] [address] [place] [address] Shamar Pacheco MD [address] [place] [address] Social History Tobacco Use Types [...] on file Legal Sex Female 3:17 AM VENTILATING EXPERT Gender Identity Not on file Sexual Orientation [...] st Contact Info) Description 08/21/2024 10:00 AM VENTILATING EXPERT Virtual Visit [facility] Diabetes Education [address] [place] [address] Flor Joseph [address] [place] [address] 09/08/2024 2:15 PM CDT Appointment [facility] Maternal Medicine [facility] [address] [place] [facility] [address] [place] [phone] Kenya Keating MD [address] [address] [address]9534 09/08/2024 2:45 PM CDT Office Visit [facility] Maternal Medicine [facility] [address] [place] [facility] [address] [place] [phone] Kenya Keating MD [address] [place] [address] [place] [address] 691274 09/16/2024 3:30 PM CDT Office Visit [facility] [address] [place] [address] [place] [phone] Shamar Pacheco MD [address] [place] [address] 09/17/2024 2:30 PM CDT Virtual Visit [facility] Endocrinology [address] [place] [phone] Renée Alanis PA-C [address] [place] [address] 09/22/2024 2:00 PM CDT Appointment [facility] Heart Care [address] [place] [phone] Kenya Keating MD [address] [place] [address] 467104 10/13/2024 3:30 PM CDT Office Visit [facility] [address] [place] [address] [phone] Shamar Pacheco MD [address] [place] [address] 10/16/2024 2:30 PM CDT Virtual Visit [facility] Endocrinology [address] [phone] Renée Alanis PA-C [address] [place] [address] 11/10/2024 3:45 PM CDT Office Visit [facility] [address] [place] [address] [place] [phone] Shamar Pacheco MD [address] [facility] [place] [address] 11/19/2024 2:30 PM CDT Virtual Visit [facility] Endocrinology Clinic [address] [phone] Renée Alanis PA-C [address] [address] 12/17/2024 2:30 PM CDT Virtual Visit [facility] Endocrinology [address] [phone] Renée Alanis PA-C [address] [address] 01/07/2025 1:30 PM CDT Virtual Visit [facility] Endocrinology [address] [phone] Renée Alanis PA-C [address] [address] 01/11/2025 7:30 AM CDT Hospital Encounter [facility] [address] [place] [phone] Shamar Pacheco MD [address] [place] [address] Modified White class B pregestational diabetes mellitus (Primary Dx); Multigravida of advanced maternal age in first trimester; Previous delivery, antepartum condition or complication 01/11/2025 7:30 AM CDT - 01/11/2025 9:00 AM CDT Surgery [facility] [address] [place] [phone] Shamar Pacheco MD [address] [place] [address] REPEAT SECTION Scheduled Procedures Name Priority Associated Diagnoses Date/Ti me SECTION Modified White class B pregestational diabetes mellitus Multigravida of advanced maternal age in first trimester Previous delivery, antepartum condition or complication 01/11/2025 7:30 AM CDT documented as of this encounter Visit Diagnoses Not on filedocumented in this encounter Additional Health Concerns Assessment Noted Time PHQ-9 Depression Total Score: 0 05/31/20 7:03 AM VENTILATING EXPERT documented as of this encounter Care Teams Cataloging Assistant Relationship Specialty Start Date End Date [facility], [address] [address] PCP - General 03/22/17 Shamar Pacheco MD [address] [place] [address] Assigned OBGYN Provider 10/09/[address] [address] Package Wrapper Dietitian, Registered 10/16/[address] [address] Package Wrapper Dietitian, Registered 11/02/21 Fiona Conrad [address] [place] [address] Package Wrapper Dietitian, Registered 01/23/23 [facility] - [facility] [address] [address] Assigned PCP 07/18/23 03/15/24 Atif Garcia MD [address] [place] [facility] [address] [place] [address] television and radio repairer 05/01/24 Dina Perez PA-C [address] [place] [address] [phone] Physician Power Superintendent Endocrinology, Diabetes, and Metabolism 06/02/24 Tiffani Farmer MD 420 [facility] [address] [place], [place] 8[address] Assigned Endocrinology Provider 06/15/24 Cydney Olivarez CHW Community Health Worker 08/13/2408/14 documented as of this encounter
--- OUTSIDE RECORDS SUMMARY | 2024-08-18 20:30 | XMS_ITS | Encounter Summary ---
Author Organization [place] Address [address] [facility] [place] [address] Care Team Providers Care Clerk General Office Name Role Phone Clinic, [facility] Primary Care Provider Royal Oconnor MD Unavailable Kellen Duran RD Unavailable [phone] Unavailable Unavailable Fiona Conrad Unavailable Atif Garcia MD Unavailable [phone] Dina Perez PA-C Unavailable Tiffani Farmer MD Unavailable [phone] Reason for Referral * Diagnostic Imaging Ultrasound (Routine) - Pending Review Specialty Diagnoses / Procedures Referred By Contac t Referred To Contact Radiology. Diagnoses Type 2 diabetes mellitus during , antepartum S/P repeat low transverse AMA (advanced maternal age) multigravida 35+ Procedures MFM US OB Complete 2/3 Tri Single Roberta Mccarty MD [address] [place] [address] Phone: tel: fax: Referral ID Status Reason Start Date Expiration Date V isits Requested Visits Authorized [id number] Pending Review 07/16/2024 07/16/2025 1 1 MACOVIGILANCE SPECIALIST Reason for Visit * Diagnostic Imaging Ultrasound (Routine) - Pending Review Specialty Diagnoses / Procedures Referred By Contac t Referred To Contact Radiology. Diagnoses Type 2 diabetes mellitus during , antepartum S/P repeat low transverse AMA (advanced maternal age) multigravida 35+ Procedures MFM US OB Complete 2/3 Tri Single Roberta Mccarty MD [address] [place] [address] Phone: tel: fax: Referral ID Status Reason Start Date Expiration Date V isits Requested Visits Authorized [id number] Pending Review 07/16/2024 07/16/2025 1 1 Encounter Details Date Type Department Care Team (Latest Contact Info) Description 08/17/2024 11:00 AM PHARMACOVIGILANCE SPECIALIST - 08/17/2024 11:59 PM PHARMACOVIGILANCE SPECIALIST Hospital Encounter [facility] Maternal Medicine [facility] [address] [facility] [address] [place] [address] Roberta Mccarty MD [address] [place] [address] Kenya Keating MD [address] [place] [address] Type 2 diabetes mellitus during , antepartum; S/P repeat low transverse ; AMA (advanced maternal age) multigravida 35+ Discharge Disposition: Home or Self Care Social History Tobacco Use Types Packs/Day Years Used Date Smoking Tobacco: Never Smokeless Tobacco: Never Alcohol Use Standard Drinks/Week Comments Not Currently 0 (1 standard drink = 0.6 oz pur e alcohol) PHQ-2 Answer Date Recorded PHQ-2 Score 0 08/12/2024 [place] Depression Scale Answer Date Recorded Last EPDS [...] on file Legal Sex Female 3:17 AM PHARMACOVIGILANCE SPECIALIST Gender Identity Not on file Sexual Orientation Not on file 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 400 each 4 4 blood glucose (NO BRAND SPECIFIED) test stripIndications: Pre-existing type 2 diabetes mellitus during in third trimester Use to test blood sugar 4 times daily or as directed. 400 strip 4 4 insulin glargine (LANTUS PEN) 100 UNIT/ML penIndications:Ty pe 2 diabetes mellitus with hyperglycemia, with long-term current use of insulin (H) Inject 28 Units subcutaneously at bedtime. Titrate as directed. Uses up to 50 units daily. 45 mL 5 5 insulin pen needle (31G X 5 MM) 31G X 5 MM miscellaneousIndi cations:Type 2 diabetes mellitus with hyperglycemia, with long-term current use of insulin (H) Use 5 pen needles daily or as directed. 200 each 3 4 NOVOLOG FLEXPEN 100 UNIT/ML solnIndications:T ype 2 diabetes mellitus with hyperglycemia, with long-term current use of insulin (H) Take 1 unit for each 10 g of carbohydrates for 1.5 units per for up to 50 units/day three-four times daily and 2 units for priming each time 54 mL 3 4 Vit-Fe Fumarate-FA ( MULTIVITAMIN W/IRON) 27-0.8 MG tablet Take 1 tablet by mouth daily documented as of this encounter Plan of Treatment Upcoming Encounters Date Type Department Care Team (Late st Contact Info) Description 08/21/2024 10:00 AM PHARMACOVIGILANCE SPECIALIST Virtual Visit [facility] Diabetes Education [address] [place] [phone] Flor Joseph [address] [place] [address] 09/08/2024 2:15 PM CDT Appointment [facility] Maternal [facility] [address] [facility] [address] [place] [phone] Kenya Keating MD [address] [place], [place] [id number] 09/08/2024 2:45 PM CDT Office Visit [facility] Maternal Medicine [facility] [address] [facility] [address] [place] [phone] Kenya Keating MD [address] [place], [place] [id number] 09/16/2024 3:30 PM CDT Office Visit [facility] [place] [address] [facility] [address] [place] [phone] Royal Oconnor MD [address] [place] [address] 09/17/2024 2:30 PM CDT Virtual Visit [facility] Endocrinology Clinic [address] [place] [phone] Renée Alansi PA-C [address] [facility] [address] [place], [place] [address] 09/22/2024 2:00 PM CDT Appointment [facility] [address] [place] [phone] Kenya Keating MD [address] [place], [place] [id number] 10/13/2024 3:30 PM CDT Office Visit [address] [address] Royal Oconnor MD [address] [place] [address] 10/16/2024 2:30 PM CDT Virtual Visit [facility] Endocrinology [address] [phone] Renée Alanis PA-C [address] [address] 11/10/2024 3:45 PM CDT Office Visit [facility] [address] [address] Royal Oconnor MD [address] [place] [address] 11/19/2024 2:30 PM CDT Virtual Visit [facility] Endocrinology Clinic [address] [phone] Renée Alanis PA-C [address] [address] 12/17/2024 2:30 PM CDT Virtual Visit [facility] Endocrinology Clinic [address] [phone] Renée Alanis PA-C [address] [address] 01/07/2025 1:30 PM CDT Virtual Visit [facility]ocr[facility]ology [facility] [place] [address] [facility] [address] 3rd [place] [phone] Renée Alanis PA-C [address] [facility] [address] [place] [address] 01/11/2025 7:30 AM CDT Hospital Encounter [facility] [address] [place] [address] Royal Oconnor MD [address] [place] [address] Modified White class B pregestational diabetes mellitus (Primary Dx); Multigravida of advanced maternal age in first trimester; Previous delivery, antepartum condition or complication 01/11/2025 7:30 AM CDT - 01/11/2025 9:00 AM CDT Surgery [facility] [address] [place] [address] Royal Oconnor MD [address] [place] [address] REPEAT SECTION Scheduled Procedures Name Priority Associated Diagnoses Date/Ti me SECTION Modified White class B pregestational diabetes mellitus Multigravida of advanced maternal age in first trimester Previous delivery, antepartum condition or complication 01/11/2025 7:30 AM CDT documented as of this encounter Procedures Procedure Name Priority Date/Time Associated Diagnosis Comments MFM US OB COMPLETE 2/3 TRI SINGLE Routine 08/17/2024 12:04 PM PHARMACOVIGILANCE SPECIALIST Type 2 diabetes mellitus during , antepartum S/P repeat low transverse AMA (advanced maternal age) multigravida 35+ documented in this encounter Results * MFM US OB Complete 2/3 Tri Single (08/17/2024 12:04 PM PHARMACOVIGILANCE SPECIALIST) Anatomical Region Laterality Modality Ultrasound 08/17/2024 11:0 8 AM PHARMACOVIGILANCE SPECIALIST Impressions 08/17/2024 1:44 PM PHARMACOVIGILANCE SPECIALIST IMPRESSION ----- 1. Duarte at 17w [...] long and closed. Narrative 08/17/2024 1:44 PM PHARMACOVIGILANCE SPECIALIST 2nd / 3rd Trim ----- Pat. Name: HOLLY PAULINO Study Date: 08/17/2024 11:08am Pat. NO: [id number] Referring MD: ROYAL OCONNOR Site: Patrol Agent: Jacquelyn [place] RDMS : 1990 Age: 33 [...] 0 lb 10 oz EFW by Hadlock ([id number]) Head / Face / Neck Biometry: Hot Metal Charger 6.0 mm CM 6.1 mm Nasal bone [...] Heart / Thorax RVOT view. LVOT view. [id number]-[id number] view. Situs. Bicaval view. Ductal arch view. [...] Procedure Note Kenya Keating MD - 08/17/2024 Trim ----- Pat. Name: HOLLY PAULINO Study Date: 08/17/2024 11:08am Pat. NO: [id number] Referring MD: ROYAL OCONNOR Site: Patrol Agent: Jacquelyn [place] RDMS : 1990 Age: 33 [...] EFW (lb,oz) 0 lb 10oz EFW by Hadlock([id number]) Head / Face / Neck Biometry: Hot Metal Charger 6.0mm CM 6.1mm Nasal bone 4.9mm Urinary [...] Heart / Thorax RVOT view. LVOT view. [id number]-mfssxhphxsg. Situs. Bicaval view. Ductal arch view. Superior [...] urinary tract dilation can be associated with [id number], however, given her low risk cell free [...] cervix appeared long and closed. us Roberta Mccarty MD [facility] US ORDERABLES Edited Re sult - Final documented [...] Total Score: 1 08/12/19 25 4:09 PM PHARMACOVIGILANCE SPECIALIST documented as of this encounter Care Teams Clerk General Office Relationship Specialty Start Date End Date Clinic, [facility] [id number] [place] [address] PCP - General 03/22/17 Royal Oconnor MD [address] [place] [address] Assigned OBGYN Provider 10/09/[address] [address] Storage Consultant Dietitian, Registered 10/16/[address] [address] Storage Consultant Dietitian, Registered 11/02/21 Fiona Conrad [address] [place] [address] Storage Consultant Dietitian, Registered 01/23/23 Atif Garcia MD [address] [address] paint brush maker 05/01/24 Dina Perez PA-C [address] [place] [address] [id number] Physician Diesel Engine Assembler Endocrinology, Diabetes, and Metabolism 06/02/24 Tiffani Farmer MD [address] [place] [address] [phone] Assigned Endocrinology Provider 06/15/24 documented as of this encounter
--- OUTSIDE RECORDS SUMMARY | 2024-08-18 20:30 | XMS_ITS | Encounter Summary ---
Author Organization [place] Address [address] [facility] [place] [address] Care Team Providers Care Alteration Worker Name Role Phone Clinic, [facility] Primary Care Provider Shamar Pacheco MD Unavailable Kellen Duran RD Unavailable [phone] Unavailable Unavailable Fiona Conrad Unavailable [phone] Atif Garcia MD Unavailable [phone] Dina Perez PA-C Unavailable Tiffani Farmer MD Unavailable [phone] Encounter Details Date Type Department Care Team (Latest Contact Info) Description 08/17/2024 Travel Social History Tobacco Use Types Packs/Day Years Used Date Smoking Tobacco: Never Smokeless Tobacco: Never Alcohol Use Standard Drinks/Week Comments Not Currently 0 (1 standard drink = 0.6 oz pur e alcohol) PHQ-2 Answer Date Recorded PHQ-2 Score 0 08/12/2024 [place] Depression Scale Answer Date Recorded Last EPDS [...] on file Legal Sex Female 3:17 AM WELDER EXPERIMENTAL Gender Identity Not on file Sexual Orientation Not on file 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 office Not on file Not on file Not on file documented as of this encounter Plan of Treatment Upcoming Encounters Date Type Department Care Team (Late st Contact Info) Description 08/21/2024 10:00 AM WELDER EXPERIMENTAL Virtual Visit [facility] Diabetes Education [address] [phone] Flor Joseph [address] [place] [address] 09/08/2024 2:15 PM CDT Appointment [facility] [place] [address] [facility] [address] [place] [phone] Kenya Keating MD [address] [place], [place] [address] 09/08/2024 2:45 PM CDT Office Visit [facility] [place] [address] [place] [phone] Kenya Keating MD [address] [place], [place] [address] 09/16/2024 3:30 PM CDT Office Visit [facility] [place] [address] [place] [address] [place] [phone] Shamar Pacheco MD [address] [place] [address] 09/17/2024 2:30 PM CDT Virtual Visit [facility] Endocrinology [facility] [address] [phone] Renée Alanis PA-C 420 [facility] [address] [place] [address] 09/22/2024 2:00 PM CDT Appointment [facility] [address] [place] [phone] Kenya Keating MD [address] [place] [address] 10/13/2024 3:30 PM CDT Office Visit [address] [phone] Shamar Pacheco MD [address] [place] [address] 10/16/2024 2:30 PM CDT Virtual Visit [facility] [address] [phone] Renée Alanis PA-C [address] [place] [address] 11/10/2024 3:45 PM CDT Office Visit [facility] [address] [facility] [address] [place] [phone] Shamar Pacheco MD [address] [place] [address] 11/19/2024 2:30 PM CDT Virtual Visit [facility] [address] [phone] Renée Alanis PA-C [address] [place] [address] 12/17/2024 2:30 PM CDT Virtual Visit [facility]ology [facility] [place] [address] [facility] [address] [place] [phone] Renée Alanis PA-C 420 [facility] [address] [place] [address] 01/07/2025 1:30 PM CDT Virtual Visit [facility]ology [facility] [place] [address] [facility] [address] [place] [phone] Renée Alanis PA-C [address] [address] 01/11/2025 7:30 AM CDT Hospital Encounter [facility] [address] [place] [address] Shamar Pacheco MD [address] [place] [address] Modified White class B pregestational diabetes mellitus (Primary Dx); Multigravida of advanced maternal age in first trimester; Previous delivery, antepartum condition or complication 01/11/2025 7:30 AM CDT - 01/11/2025 9:00 AM CDT Surgery [facility] [address] [place] [address] Shamar Pacheco MD [address] [place] [address] REPEAT SECTION Scheduled Procedures Name Priority Associated [...] Total Score: 1 08/12/19 25 4:09 PM WELDER EXPERIMENTAL documented as of this encounter Care Teams Alteration Worker Relationship Specialty Start Date End Date Clinic, [facility] [address] [place] [address] PCP - General 03/22/17 Shamar Pacheco MD [address] [place] [address] Assigned OBGYN Provider 10/09/[address] [address] Biodiesel Operations Manager Dietitian, Registered 10/16/[address] [address] Biodiesel Operations Manager Dietitian, Registered 11/02/21 Fiona Conrad [address] [place] [address] Biodiesel Operations Manager Dietitian, Registered 01/23/23 Atif Garcia MD [address] [place] [address] director of physiotherapy services 05/01/24 Dina Perez PA-C [address] [place] [address] Physician Millroom Supervisor Endocrinology, Diabetes, and Metabolism 06/02/24 Tiffani Farmer MD [address] [place] [phone] Assigned Endocrinology Provider 06/15/24 documented as of this encounter
--- OUTSIDE RECORDS SUMMARY | 2024-08-18 20:30 | XMS_ITS | Clinical Summary ---
Author Organization [place] Address [address] [facility] [place] [address] Care Team Providers Care Electronic Game Developer Name Role Phone Radha, [facility] Primary Care Provider Royal Oconnor MD Unavailable Kellen Duran RD Unavailable [phone] Unavailable Unavailable Fiona Conrad Unavailable Atif Garcia MD Unavailable [phone] Dina Perez PA-C Unavailable Tiffani Farmer MD Unavailable [phone] Allergies Active Allergy Reactions Criticality Noted Date Comments Bee Venom Angioedema 06/10/2014 Medications Vit-Fe Fumarate-FA ( MULTIVITAMIN W/IRON) 27-0.8 MG tablet Take 1 tablet by mouth daily Active blood glucose (NO BRAND SPECIFIED) test stripIndications :Pre-existing type 2 diabetes mellitus during in third trimester Use to test blood sugar 4 times daily or as directed. 400 strip 4 06/04/20 24 Active blood glucose (NO BRAND SPECIFIED) lancets standardIndicati ons:Pre-existing type 2 diabetes mellitus during in third trimester Use to test blood sugar 4 times daily or as directed. 400 each 4 06/04/20 24 Active insulin pen needle (31G X 5 MM) 31G X 5 MM miscellaneousInd ications:Type 2 diabetes mellitus with hyperglycemia, with long-term current use of insulin (H) Use 5 pen needles daily or as directed. 200 each 3 06/04/20 24 Active NOVOLOG FLEXPEN 100 UNIT/ML solnIndications: Type 2 diabetes mellitus with hyperglycemia, with long-term current use of insulin (H) Take 1 unit for each 10 g of carbohydrates for 1.5 units per for up to 50 units/day three-four times daily and 2 units for priming each time 54 mL 3 06/05/20 24 Active insulin glargine (LANTUS PEN) 100 UNIT/ML penIndications:T ype 2 diabetes mellitus with hyperglycemia, with long-term current use of insulin (H) Inject 28 Units subcutaneously at bedtime. Titrate as directed. Uses up to 50 units daily. 45 mL 5 08/07/19 25 Active insulin glargine (LANTUS PEN) 100 UNIT/ML penIndications:T ype 2 diabetes mellitus with hyperglycemia, with long-term current use of insulin (H) Inject 29 Units subcutaneously at bedtime. 06/11/20 24 025 Discontin ued(Reord er (No AVS)) Active Problems Problem Noted Date Diagnosed Date Modified White class B pregestational diabetes m ellitus 06/08/2024 Previous delivery, antepartum condition or complication 06/08/2024 AMA (advanced maternal age) multigravida 35+ S/P repeat low transverse 04/10/2023 Diabetes mellitus, type 2 10/06/2021 Estimated Date of Delivery Comme nts Yes 01/19/2025 Based on Ultraso und Resolved Problems Problem Noted Date Diagnosed Date Resolved Date delivery delivered 01/17/2022 02/27/2022 Chorioamnionitis, delivered, current hospitalization 01/17/2022 02/27/2022 Anemia due to blood loss, acute 01/17/2022 02/27/2022 Indication for care in labor or delivery 01/14/2022 01/17/2022 Encounter for triage in patient 11/23/2021 01/17/2022 Missed 08/19/2020 01/17/2022 Overview (08/19/2020): Added automatically from request for surgery [id number] Diabetes mellitus, type 2 08/18/2020 Encounters Date Type Department Care Team Description 08/17/2024 1:30 PM GATE CUTTER Office Visit [facility] Medicine [place] [address] [facility] [address] [place] [address] Roberta Mccarty MD Burn, Martina, MD Stoner, Natalie E, GC AMA (advanced maternal age) multigravida 35+ (Primary Dx); Type 2 diabetes mellitus during , antepartum; S/P repeat low transverse ; Modified White class B pregestational diabetes mellitus; Previous delivery, antepartum condition or complication; Encounter for procreative genetic counseling; Abnormal ultrasound; Multigravida of advanced maternal age in second trimester 08/17/2024 11:45 AM GATE CUTTER Office Visit [facility] [place] [address] [facility] [address] [place] [phone] Roberta Mccarty MD Burn, Martina, MD Type 2 diabetes mellitus during , antepartum (Primary Dx); Multigravida of advanced maternal age in first trimester; Modified White class B pregestational diabetes mellitus; Previous delivery, antepartum condition or complication; S/P repeat low transverse 08/17/2024 11:00 AM GATE CUTTER - 08/17/2024 11:59 PM GATE CUTTER Hospital Encounter [place] [address] [address] [place] [phone] Roberta Mccarty MD Burn, Martina, MD Type 2 diabetes mellitus during , antepartum; S/P repeat low transverse ; AMA (advanced maternal age) multigravida 35+ Discharge Disposition: Home or Self Care 08/17/2024 Travel 08/14/2024 MyC Medical Advice [facility] Care Coordination [facility] [address] [place] [phone] Cydney Olivarez CHW 08/13/2024 PRE VISIT [facility] Medicine [place] [address] [facility] [address] [place] [phone] Carmen Rivera RN Ultrasound (2/3 Complete- T2DM, AMA); Consult (T2DM); Genetic Counseling ( T2DM, AMA) 08/12/2024 3:15 PM GATE CUTTER Office Visit [facility] [place] [address] [place] [phone] Royal Oconnor MD Multigravida of advanced maternal age in first trimester (Primary Dx); Modified White class B pregestational diabetes mellitus; Previous delivery, antepartum condition or complication 08/12/2024 Travel 08/07/2024 MyC Medical Advice [facility]ology [facility] [address] [phone] Dona [place] 08/07/2024 Telephone [facility] [address] [phone] Tiffani Farmer MD Appointment (Monthly GDM appts w /PA) 08/07/2024 Telephone [facility] [address] [phone] Tiffani Farmer MD Call Back (Medication and appointment ) 07/23/2024 MyC Medical Advice [facility] [address] [phone] Ni Monge CMA 07/23/2024 Telephone [facility] Diabetes Education [address] [phone] Flor Joseph Appointment 07/21/2024 MyC Medical Advice [facility] Diabetes Education [address] [phone] Flor Joseph 07/16/2024 Orders Only [facility] [place] [address] [place] [address] Sue Louis RN Type 2 diabetes mellitus during , antepartum (Primary Dx); S/P repeat low transverse ; AMA (advanced maternal age) multigravida 35+ 07/15/2024 2:45 PM GATE CUTTER Office Visit [facility] [address] [place] [address] Royal Oconnor MD Multigravida of advanced maternal age in first trimester (Primary Dx); Modified White class B pregestational diabetes mellitus; Previous delivery, antepartum condition or complication 07/15/2024 Telephone [facility] [address] [place] [address] Royal Oconnor MD Schedule Surgery ( section) 07/15/2024 Travel 07/10/2024 12:30 PM GATE CUTTER Virtual Visit [facility] Diabetes Education [address] [phone] Flor Joseph Pre-existing type 2 diabetes mellitus during in first trimester (Primary Dx) 06/26/2024 3:30 PM GATE CUTTER Allied Health/Nurse Visit [facility] [address] [place] [address] Allied Health Visit 06/26/2024 2:00 PM GATE CUTTER Virtual Visit [facility] Diabetes Education [address] [phone] Flor Joseph Pre-existing type 2 diabetes mellitus during in first trimester (Primary Dx) 06/26/2024 Travel 06/26/2024 MyC Medical Advice [facility] Diabetes Education [address] [phone] Flor Joseph 06/26/2024 MyC Medical Advice [facility] Diabetes Education [place] [address] [place] [phone] Flor Joseph 06/19/2024 2:00 PM GATE CUTTER Virtual Visit [facility] Diabetes Education [address] [place] [address] Flor Joseph Pre-existing type 2 diabetes mellitus during in first trimester (Primary Dx) 06/19/2024 MyC Medical Advice [facility] Diabetes Education [address] [phone] Flor Joseph 06/15/2024 Travel 06/12/2024 MyC Medical Advice [facility]ology [facility] [address] [phone] Arya Carcamoview 06/12/2024 Telephone [facility] Endocrinology [address] [phone] Tiffani Farmer MD Appointment (Monthly w /PA & weekly w Flor BOYCE ) 06/11/2024 1:00 PM GATE CUTTER Virtual Visit [facility] Diabetes [address] [phone] Flor Joseph Type 2 diabetes mellitus with hyperglycemia, with long-term current use of insulin (H) 06/11/2024 MyC Medical Advice [facility] Education [address] [phone] Flor Joseph 06/08/2024 2:00 PM GATE CUTTER Office Visit [facility] [place] [address] [facility] [address] [place] [phone] Atif Garcia MD Previous delivery, antepartum condition or complication (Primary Dx); Modified White class B pregestational diabetes mellitus; Multigravida of advanced maternal age in first trimester; Screen for STD (sexually transmitted disease) 06/08/2024 Transcribe Orders [facility] [place] [address] [facility] [address] [place] [phone] Atif Garcia MD related condition, antepartum (Primary Dx) 06/08/2024 Travel 06/05/2024 10:00 AM GATE CUTTER Virtual Visit [facility] [address] [phone] Tiffani Farmer MD Type 2 diabetes mellitus with hyperglycemia, with long-term current use of insulin (H) 06/05/2024 Telephone [facility] [address] [phone] Tiffani Farmer MD Glucose (Called to gather meter readings if checking for visit 06/05/24 ) 06/05/2024 MyC Medical Advice [facility] Endocrinology [address] [phone] Na [place] 06/05/2024 PRE VISIT [facility] [address] [phone] Tiffani Farmer MD *-*INCOMING RECORDS*-* 06/04/2024 [facility] Medical Advice [facility] Diabetes Education [address] [phone] Flor Joseph 06/04/2024 [facility] Medical Advice [facility] [address] [phone] [facility] Type 2 diabetes mellitus with hyperglycemia, with long-term current use of insulin (H) (Primary Dx) 06/04/2024 Telephone [facility] Endocrinology [address] [phone] None Clinic Care Coordination - Initial (Scheduling sooner appointment) 06/03/2024 1:00 PM GATE CUTTER Virtual Visit [facility] Diabetes [address] [phone] Atif Garcia MD Johnson, Sara J Diabetes mellitus, type 2 (H) 06/03/2024 MyC Medical Advice [facility] Diabetes Education [address] [phone] Flor Joseph 06/03/2024 Telephone [facility] Diabetes [address] [place] [phone] Flor Joseph Medication Request ( and High A1c) 06/01/2024 2:45 PM GATE CUTTER Lab [facility] Laboratory [address] [facility] [address] [place] [phone] Supervision of normal first 06/01/2024 2:00 PM GATE CUTTER Ancillary Procedure [facility] [address] [facility] [address] [place] [address] Supervision of normal first 06/01/2024 Orders Only [address] [place] [phone] Atif Garcia MD Diabetes mellitus, type 2 (H) (Primary Dx) 06/01/2024 Travel 05/18/2024 2:15 PM GATE CUTTER Virtual Visit [facility] [address] [facility] [address] [place] [phone] Supervision of normal first (Primary Dx) from Last 3 Months Immunizations Name Administration Dates Next Due COVID-19 Monovalent 18+ (Moderna) 12/21/2020,07/2020 DT (PEDS <7y) 01/25/2003 HPV9 08/27/2016,01/11/2016,10/21/2015 Hepatitis B, Peds 02/15/2004,03/30/2003,02/26/20 03 MMR 01/25/2003 TDAP (Adacel,Boostrix) 02/12/2023,2021,08/17/2019, 9 Family History Medical History Relation Comments No Known Problems Father Bipolar Disorder Maternal Grandmother Cerebrovascular Disease Maternal Grandmother Diabetes Maternal Grandmother Diabetes Type 2 Maternal Grandmother stroke Maternal Grandmother No Known Problems Mother Diabetes Paternal Grandfather Aneurysm Paternal Grandmother No Known Problems Sister Breast Cancer No family hx of Relation Status Comments Father Alive Maternal Grandfather Alive Maternal Grandmother Mother Alive Paternal Grandfather Alive Paternal Grandmother Sister Alive Social History Tobacco Use Types Packs/Day Years Used Date Smoking Tobacco: Never Smokeless Tobacco: Never Tobacco Cessation:Counseling Given: No Alcohol Use Standard Drinks/Week Comments Not Currently 0 (1 standard drink = 0.6 oz pur e alcohol) PHQ-2 Answer Date Recorded PHQ-2 Score 0 08/12/2024 [place] Depression Scale Answer Date Recorded Last EPDS [...] on file Legal Sex Female 3:17 AM GATE CUTTER Gender Identity Not on file Sexual Orientation Not on file 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 office Not on file Not on file Not on file Last Filed Vital Signs Vital Sign Reading Time Taken Comments Blood Pressure 121/77 08/17/2024 12:14 PM GATE CUTTER Pulse 108 08/17/2024 12:14 PM GATE CUTTER Temperature 36.6 C (97.9 F) 04/16/2024 12:50 PM CDT Respiratory Rate 16 04/16/2024 12:50 PM CDT Oxygen Saturation 100% 08/17/2024 12:14 PM GATE CUTTER Inhaled Oxygen Concentration - - Weight 82.1 kg (181 lb) 08/12/2024 3:07 PM GATE CUTTER Height 177.8 cm (5' 10) 06/03/2024 12:52 PM GATE CUTTER Body Mass Index 25.97 06/03/2024 12:52 PM GATE CUTTER Plan of Treatment Upcoming Encounters Date Type Department Care Team (Late st Contact Info) Description 08/21/2024 10:00 AM GATE CUTTER Virtual Visit [facility] Diabetes Education [address] [place] [address] Flor Joseph [address] [place] [phone] 09/08/2024 2:15 PM CDT Appointment [facility] [place] [address] [place] [phone] Kenya Keating MD [address] [place] [address] 09/08/2024 2:45 PM CDT Office Visit [facility] [place] [address] [place] [phone] Kenya Keating MD [address] [place], [place] [phone] 09/16/2024 3:30 PM CDT Office Visit [place] [address] [place] [phone] Royal Oconnor MD [address] [place] [address] 09/17/2024 2:30 PM CDT Virtual Visit [facility] [place] [address] [facility] [address] 3rd [place] [phone] Renée Alanis PA-C [address] [place] [address] [address] [place] [address] 09/22/2024 2:00 PM CDT Appointment [facility] [address] [place] [phone] Kenya Keating MD [address] [place] [address] 10/13/2024 3:30 PM CDT Office Visit [facility] [address] [place] [phone] Royal Oconnor MD [address] [place] [address] 10/16/2024 2:30 PM CDT Virtual Visit [facility] [address] [phone] Renée Alanis PA-C [address] [address] 11/10/2024 3:45 PM CDT Office Visit [facility] [place] [address] [facility] [address] [place] [phone] Royal Oconnor MD [address] [place] [address] 11/19/2024 2:30 PM CDT Virtual Visit [facility] [address] [phone] Renée Alanis PA-C [address] [address] 12/17/2024 2:30 PM CDT Virtual Visit [facility] [address] [phone] Renée Alanis PA-C [address] [address] 01/07/2025 1:30 PM CDT Virtual Visit [facility] [address] [phone] Renée Alanis PA-C [address] [address] 01/11/2025 7:30 AM CDT Hospital Encounter [facility] [address] [place] [address] Royal Oconnor MD [address] [place] [address] Modified White class B pregestational diabetes mellitus (Primary Dx); Multigravida of advanced maternal age in first trimester; Previous delivery, antepartum condition or complication 01/11/2025 7:30 AM CDT - 01/11/2025 9:00 AM CDT Surgery [facility] [address] [place] [phone] Royal Oconnor MD [address] [place] [address] REPEAT SECTION Scheduled Procedures Name Priority Associated Diagnoses Date/Ti me SECTION Modified White class B pregestational diabetes mellitus Multigravida of advanced maternal age in first trimester Previous delivery, antepartum condition or complication 01/11/2025 7:30 AM CDT Health Maintenance Due Date Last Done Comments ADVANCE CARE PLANNING 1989 ANNUAL REVIEW OF HM ORDERS 1989 DIABETIC FOOT EXAM 1989 EYE EXAM 1989 YEARLY PREVENTIVE VISIT 1992 Pneumococcal Vaccine: Pediatrics (0 to 5 Years) and At-Risk Patients (6 to 49 Years) (1 of 2 - PCV) 2008 LIPID 08/17/2020 08/17/2019 MICROALBUMIN 08/17/2020 08/17/2019 BMP 06/14/2022 06/14/2021 COVID-19 Vaccine (3 - season) 2024 12/21/2020, 11/23/2020 INFLUENZA VACCINE (#1) 2024 A1C 08/30/2024 06/01/2024, 08/23, 01/23/2023, Additional history exists TDAP () IMMUNIZATION 10/20/2024 02/12/2023, 11/01/2021, 08/17/2019, Additional history exists GROUP B STREP SCREENING 12/22/2024 04/02/2023, 12/29 HPV TEST 10/06/2027 10/05/2022, 09/22, 08/17/2019, Additional history exists PAP 10/06/2027 10/05/2022, 09/22, 10/05/2022, Additional history exists DTAP/TDAP/TD IMMUNIZATION (5 - Td or Tdap) 02/12/2033 02/12/2023, 11/01/2021, 08/17/2019, Additional history exists ZOSTER IMMUNIZATION (1 of 2) 10/27/2039 HEPATITIS B IMMUNIZATION Completed 004, 03/30/2003, 02/25/2003 HPV IMMUNIZATION Completed 08/27/2016, , 10/21/2015 HEPATITIS C SCREENING Completed 06/01/2024 , 09/03/2022, 06/14/2021 HIV SCREENING Completed 06/01/2024, 08/22, 05/14/2021 MATERNAL SCREENING DISCUSSION Completed 06/26/2024, 10/31/2022, 07/11/2021 PHQ-2 (once per calendar year) Completed 08/12/2024, 08/12/2024, 07/10/2024, Additional history exists MENINGITIS IMMUNIZATION Aged Out No l onger eligible based on patient's age to complete this topic RSV VACCINE (No Doses Required) Completed Procedures Procedure Name Priority Date/Time Associated Diagnosis Comments MFM US OB COMPLETE 2/3 TRI SINGLE Routine 08/17/2024 12:04 PM GATE CUTTER Type 2 diabetes mellitus during , antepartum S/P repeat low transverse AMA (advanced maternal age) multigravida 35+ URINE CULTURE Routine 07/15/2024 3:06 PM GATE CUTTER Modified White class B pregestational diabetes mellitus Multigravida of advanced maternal age in first trimester MYRIAD NON-INVASIVE SCREENING PREQUEL Routine 06/26/2024 3:33 PM GATE CUTTER Genetic screening CHLAMYDIA TRACHOMATIS PCR Routine 06/08/2024 2:25 PM GATE CUTTER Screen for STD (sexually transmitted disease) NEISSERIA GONORRHOEAE PCR Routine 06/08/2024 2:25 PM GATE CUTTER Screen for STD (sexually transmitted disease) URINE CULTURE Routine 06/01/2024 3:07 PM GATE CUTTER Supervision of normal first ABO/RH TYPE AND SCREEN Routine 06/01/2024 2:44 PM GATE CUTTER Supervision of normal first TYPE AND SCREEN, ADULT Routine 06/01/2024 2:44 PM GATE CUTTER Supervision of normal first HEPATITIS C SCREEN REFLEX TO HCV RNA QUANT AND GENOTYPE Routine 06/01/2024 2:44 PM GATE CUTTER Supervision of normal first HEMOGLOBIN A1C Routine 06/01/2024 2:44 PM GATE CUTTER Supervision of normal first TREPONEMA ABS W REFLEX TO RPR AND TITER Routine 06/01/2024 2:44 PM GATE CUTTER Supervision of normal first RUBELLA ANTIBODY IGG Routine 06/01/2024 2:44 PM GATE CUTTER Supervision of normal first HIV ANTIGEN ANTIBODY COMBO Routine 06/01/2024 2:44 PM GATE CUTTER Supervision of normal first CBC WITH PLATELETS Routine 06/01/2024 2: 44 PM GATE CUTTER Supervision of normal first HEPATITIS B SURFACE ANTIGEN Routine 06/01/2024 2:44 PM GATE CUTTER Supervision of normal first US OB <14 WEEKS WITH TRANSVAGINAL SINGLE Routine 06/01/2024 2:40 PM GATE CUTTER Supervision of normal first GROUP B STREP PCR Routine 04/02/2023 3:3 0 PM CDT High-risk , unspecified trimester Type 2 diabetes mellitus without complication, without long-term current use of insulin (H) History of section GYNECOLOGIC CYTOLOGY Routine 10/05/2022 9:17 AM CDT Screening for cervical cancer HPV HIGH RISK TYPES DNA CERVICAL Routine 10/05/2022 9:17 AM CDT Screening for cervical cancer COMPREHENSIVE METABOLIC PANEL Routine 06/14/2021 4:58 PM GATE CUTTER Prior miscarriage with in first trimester, antepartum Type 2 diabetes mellitus without complication, without long-term current use of insulin (H) ABSTRACT MICROALBUMIN Routine 08/17/2019 LIPID PROFILE Routine 08/17/2019 from Last 3 Months or Most Recently Relevant to Health Maintenance Results * MFM US OB Complete 2/3 Tri Single (08/17/2024 12:04 PM GATE CUTTER) Anatomical Region Laterality Modality Ultrasound 08/17/2024 11:0 8 AM GATE CUTTER Impressions 08/17/2024 1:44 PM GATE CUTTER IMPRESSION ----- 1. Duarte at 17w 6d [...] long and closed. Narrative 08/17/2024 1:44 PM GATE CUTTER Trim ----- Pat. Name: HOLLY PAULINO Study Date: 08/17/2024 11:08am Pat. NO: [id number] Referring MD: ROYAL OCONNOR Site: Freight Associate: Jacquelyn Grove RDMS : 1990 Age: 33 [...] 0 lb 10 oz EFW by Hadlock ([id number]) Head / Face / Neck Biometry: Kennel Keeper 6.0 mm CM 6.1 mm Nasal bone [...] Heart / Thorax RVOT view. LVOT view. 2-wzsfvq-imgzxcc view. Situs. Bicaval view. Ductal arch view. [...] PAULINO Study Date: 08/17/2024 11:08am Pat. NO: [id number] Referring MD: ROYAL OCONNOR Site: Freight Associate: Jacquelyn GroveROSALINDA : 1990 Age: 33 ----- INDICATION ----- [...] d 01/08/2025 Assigned dating based on ultrasound (), selected on08/17/2024 17w + 6 d 01/19/2025 [...] EFW (lb,oz) 0 lb 10oz EFW by Hadlock([id number]) Head / Face / Neck Biometry: Kennel Keeper 6.0mm CM 6.1mm Nasal bone 4.9mm Urinary [...] Heart / Thorax RVOT view. LVOT view. 3-[id number]-jaikzxyocbi. Situs. Bicaval view. Ductal arch view. Superior [...] urinary tract dilation can be associated with , however, given her low risk cell free [...] seen today. For complete details of today's [employer] [facility] consult,please see separate documentation in epic. Return [...] long and closed. us Roberta Mccarty MD Daniella [employer] US ORDERABLES Edited Re sult - Final * Urine Culture Aerobic Bacterial - lab collect (07/15/2024 3:06 PM GATE CUTTER) Only the most recent of2 resultswithin the time period is included. Pathologist [facility] Culture <10,000 CFU/mL Mixture of Urogenital Kori 07/17/2024 5:32 AM GATE CUTTER [facility] Urine MID-STREAM URINE SPECIMEN / Unknown Non-blood Collection / Unknown 07/15/2024 3:06 PM GATE CUTTER 07/15/2024 3:09 PM GATE CUTTER Royal Oconnor MD LAB - MICRO GENERAL OR DERABLES Final Result [facility] Inf. Diseases Diag. Lab [address] [facility] [place] [address] * [employer] Non-Invasive Screening???Prequel (06/26/2024 3:33 PM GATE CUTTER) Pathologist [facility] See Scanned Result [employer] NON-INVASIVE SCREENING PREQUEL-Scann ed 07/06/2024 12:21 PM GATE CUTTER [facility] Blood BLOOD SPECIMEN / Unknown Venipuncture / Unknown 06/26/2024 3:33 PM GATE CUTTER 06/26/2024 3:33 PM GATE CUTTER Atif Garcia MD LAB - BLOOD ORDERABLES Final R esult [facility] [address] [phone] * NEISSERIA GONORRHOEA PCR (06/08/2024 2:25 PM GATE CUTTER) Pathologist [facility] Neisseria gonorrhoeae Negative Negative 06/09/2024 1:16 PM GATE CUTTER [facility] Comment:Negative for N. gono rrhoeae rRNA by finisher machine mediated amplification. A negative result by finisher machine mediated amplification does not preclude the presence of C. trachomatis infection because results are dependent on proper and adequate collection, absence of inhibitors and sufficient rRNA to be detected. Swab CERVIX UTERI STRUCTURE / Unknown Non-blood Collection / Unknown 06/08/2024 2:25 PM GATE CUTTER 06/08/2024 3:16 PM GATE CUTTER us Atif Garcia MD LAB - MICRO GENERAL ORDERABLES Final Result [facility] Inf. Diseases Diag. Lab [address] [facility], [address] [id number] * CHLAMYDIA TRACHOMATIS PCR (06/08/2024 2:25 PM GATE CUTTER) Chlamydia trachomatis Negative Negative 06/09/2024 1:16 PM GATE CUTTER [facility] Comment:A negative result by finisher machine mediated amplification does not preclude the presence of C. trachomatis infection because results are dependent on proper and adequate collection, absence of inhibitors and sufficient rRNA to be detected. Swab CERVIX UTERI STRUCTURE / Unknown Non-blood Collection / Unknown 06/08/2024 2:25 PM GATE CUTTER 06/08/2024 3:16 PM GATE CUTTER Atif Garcia MD LAB - MICRO GENERAL ORDERABLES Final Result Performing Organization Address City/[facility]/ZIP Co de Phone Number [facility] Inf. Diseases Diag. Lab [facility], [address] [phone] * Adult Type and Screen (06/01/2024 2:44 PM GATE CUTTER) ABO/RH(D) A POS 05/31/2024 6:00 PM GATE CUTTER RH BLOOD BANK Antibody Screen Negative Negative 05/31/2024 6:00 PM GATE CUTTER RH BLOOD BANK SPECIMEN EXPIRATION DATE [id number] 05/31/2024 6:00 PM GATE CUTTER RH BLOOD BANK Blood BLOOD SPECIMEN / Unknown Venipuncture / Unknown 06/01/2024 2:44 PM GATE CUTTER 06/01/2024 2:44 PM GATE CUTTER us Atif Garcia MD LAB - BLOOD BANK TEST ORDER Fi nal Result RH BLOOD BANK [address] [place] [address], [facility] * Rubella Antibody IgG (06/01/2024 2:44 PM GATE CUTTER) Rubella Licha IgG Instrument Value 2.00 <0.90 Index 06/01/2024 10:27 PM GATE CUTTER SPECIALTY CORE/PROT/END O Rubella Antibody IgG Positive 06/01/2024 10:27 PM GATE CUTTER [facility]TY CORE/PROT/END O Comment:Suggests previous ex posure or immunization and probable immunity. Blood BLOOD SPECIMEN / Unknown Venipuncture / Unknown 06/01/2024 2:44 PM GATE CUTTER 06/01/2024 2:44 PM GATE CUTTER Atif Garcia MD LAB - BLOOD ORDERABLES Final R esult Performing Organization Address City/[facility]/ZIP Co de Phone Number SPECIALTY CORE/PROT/ENDO Specialty Core/Prot/Endo [address] [facility], [address] * HIV Antigen Antibody Combo (06/01/2024 2:44 PM GATE CUTTER) [facility] HIV Antigen Antibody Combo Nonreactive Nonreactive 06/01/2024 8:45 PM GATE CUTTER [facility] Comment:Negative HIV-1 p24 a ntigen and HIV-1/2 antibody screening test results usually indicate the absence of HIV-1 and HIV-2 infection. However, such negative results do not rule-out acute HIV infection. If acute HIV-1 or HIV-2 infection is suspected, detection of HIV-1 or HIV-2 RNA is recommended. This result is obtained using the Kym Elecsys HIV Duo method on the marce e801 immunoassay analyzer. Blood BLOOD SPECIMEN / Unknown Venipuncture / Unknown 06/01/2024 2:44 PM GATE CUTTER 06/01/2024 2:44 PM GATE CUTTER Atif Garcia MD LAB - BLOOD ORDERABLES Final R esult LABORATORY [facility] [place] Core Lab [address] [facility], [address] [id number] * Hepatitis C Screen Reflex to HCV RNA Quant and Genotype (06/01/2024 2:44 PM GATE CUTTER) Hepatitis C Antibody Nonreactive Nonreactive 06/01/2024 7:24 PM GATE CUTTER [facility] Comment:A nonreactive screen ing test result does not exclude the possibility of exposure to or infection with HCV. Nonreactive screening test results in individuals with prior exposure to HCV may be due to antibody levels below the limit of detection of this assay or lack of reactivity to the HCV antigens used in this assay. Patients with recent HCV infections (<3 months from time of exposure) may have false- negative HCV antibody results due to the time needed for seroconversion (average of 8 to 9 weeks). Blood BLOOD SPECIMEN / Unknown Venipuncture / Unknown 06/01/2024 2:44 PM GATE CUTTER 06/01/2024 2:44 PM GATE CUTTER Atif Garcia MD LAB - BLOOD ORDERABLES Final R esult LABORATORY [facility] Core Lab [address] [place] [address], [facility] [address] * Treponema Abs w Reflex to RPR and Titer (06/01/2024 2:44 PM GATE CUTTER) Pathologist [facility] Treponema Antibody Total Nonreactive Nonreactive 06/01/2024 10:29 PM GATE CUTTER SPECIALTY CORE/PROT/EN DO Blood BLOOD SPECIMEN / Unknown Venipuncture / Unknown 06/01/2024 2:44 PM GATE CUTTER 06/01/2024 2:44 PM GATE CUTTER Atif Garcia MD LAB - BLOOD ORDERABLES Final R esult SPECIALTY CORE/PROT/ENDO Specialty Core/Prot/Endo [address] [facility], [address] * Hepatitis B surface antigen (06/01/2024 2:44 PM GATE CUTTER) Pathologist [facility] Hepatitis B Surface Antigen Nonreactive Nonreactive 06/01/2024 7:32 PM GATE CUTTER [facility] Blood BLOOD SPECIMEN / Unknown Venipuncture / Unknown 06/01/2024 2:44 PM GATE CUTTER 06/01/2024 2:44 PM GATE CUTTER Atif Garcia MD LAB - BLOOD ORDERABLES Final R esult [facility] [place] [facility] Lab [address] [facility], [address] [place] [address], [facility] * (ABNORMAL) Hemoglobin A1c (06/01/2024 2:44 PM GATE CUTTER) Estimated Average Glucose 269(H) <117 mg/dL 06/01/2024 3:14 PM GATE CUTTER [facility] Hemoglobin A1C 11.0(H) 0.0 - 5.6 % 06/01/2024 3:14 PM GATE CUTTER [facility] Comment: Normal <5.7% Prediabetes 5.7-6.4% Diabetes 6.5% or higher Note: Adopted from ADA consensus guidelines. Blood BLOOD SPECIMEN / Unknown Venipuncture / Unknown 06/01/2024 2:44 PM GATE CUTTER 06/01/2024 2:44 PM GATE CUTTER Narrative [facility] - 06/01/2024 3:14 PM GATE CUTTER Results confirmed by repeat test. Atif Garcia MD LAB - BLOOD ORDERABLES Final R esult RI LABORATORY [facility] Lab [address], [address] [place] [address], [facility] * (ABNORMAL) CBC with platelets (06/01/2024 2:44 PM GATE CUTTER) WBC Count 7.9 4.0 - 11.0 10e3/uL 06/01/2024 3:16 PM GATE CUTTER [facility] RBC Count 4.68 3.80 - 5.20 10e6/uL 06/01/2024 3:16 PM GATE CUTTER [facility] Hemoglobin 10.6(L) 11.7 - 15.7 g/dL 06/01/2024 3:16 PM GATE CUTTER [facility] Hematocrit 33.3(L) 35.0 - 47.0 % 06/01/2024 3:16 PM GATE CUTTER [facility] MCV 71(L) 78 - 100 fL 06/01/2024 3:16 PM GATE CUTTER [facility] MCH 22.6(L) 26.5 - 33.0 pg 06/01/2024 3:16 PM GATE CUTTER [facility] MCHC 31.8 31.5 - 36.5 g/dL 06/01/2024 3:16 PM GATE CUTTER [facility] RDW 16.2(H) 10.0 - 15.0 % 06/01/2024 3:16 PM GATE CUTTER [facility] Platelet Count 579(H) 150 - 450 10e3/uL 06/01/2024 3:16 PM GATE CUTTER [facility] Blood BLOOD SPECIMEN / Unknown Venipuncture / Unknown 06/01/2024 2:44 PM GATE CUTTER 06/01/2024 2:44 PM GATE CUTTER us Atif Garcia MD LAB - BLOOD ORDERABLES Final R esult RI LABORATORY [facility] Lab [address] [facility], [address] [place] [address] * US OB <14 Weeks w Transvaginal Single (06/01/2024 2:40 PM GATE CUTTER) Anatomical Region Laterality Modality Abdomen/Pelvis Ultrasound Addenda Addendum by Danika Perez MD on 08/13/2024 6:40 PM GATE CUTTER Addendum: US and LMP EDCs to NOT correlate. Correct EDC is 01/19/25. Danika Perez MD Impressions 06/01/2024 3:04 PM GATE CUTTER LMP: 04/05/2024 - sure EDC: 01/10/2025 EGA: 8 w 1 d MEASUREMENTS Gest Sac: vis MSD: 2.63cm Position:nl Contour:smooth/regular. Yolk sac: .33 mm wnl CRL: .86 cm. EGA: 6w 6d U/S EDC: 01/10/2025 correspond Cardiac Activity:Yes 168 bpm reg Rt Ov L: NV Lt Ov L: NV Cul de sac: no free fluid *Other Findings: Possible uterine cyst, 1.28 x 0.88 cm Technique: Transvaginal Imaging performed Transabdominal Imaging performed Impression: Early obstetric transabdominal and transvaginal ultrasound. Intrauterine is seen. Corresponding sonographic and menstrual EGA and EDC. Based on this, best EDC for this is January 10, 2025. Normal amniotic fluid seen. Placenta: not seen, appropriate for this gestational age Gestational sac: seen and within normal limits Yolk sac: seen and within normal limits Small cystic structure seen within the myometrium, entirely separate from the gestational sac. Normal early OB ultrasound. Level II US for anatomy is suggested at 18-20 weeks based on patient history. Dr. Danika Perez MD Obstetrics and Gynecology [facility] Note: federal law requires the release of results to patients even prior to the ordering provider viewing the result. Your provider will notify you, generally within 24 hours, of any critical results. If follow up is necessary, you will be notified at that time. Normal results, and abnormal but non-urgent results, will generally be addressed within 48-72 hours. Narrative 06/01/2024 3:[address] [facility] Obstetrics and Gynecology ULTRASOUND - OB < 14 Weeks- Transabdominal and Transvaginal Referring Provider: Atif Garcia MD INDICATIONS FOR ULTRASOUND: OB History: 1st trimester loss (miscarriage, ectopic) Present Conditions: Initial S&D (0-17 weeks) Diabetes nongestational CLINICAL INFORMATION us Atif Garcia MD [facility] US ORDERABLES Edited Resul t - Final * Group B strep PCR (04/02/2023 3:30 PM CDT) Group B Strep PCR Negative Negative 023 2:40 PM CDT [facility] Comment:Presumed negative fo r Streptococcus agalactiae (Group B Streptococcus) or the number of organisms may be below the limit of detection of the assay. Swab STRUCTURE OF RECTOVAGINAL SEPTUM / Unknown Non-blood Collection / Unknown 04/02/2023 3:30 PM CDT 04/02/2023 3:53 PM CDT Narrative [facility] - 04/03/2023 2:40 PM CDT The Kanoco Xpert GBS LB Assay, performed on the LRN Systems, is a qualitative in vitro diagnostic test designed to detect Group B Streptococcus (GBS) DNA from enriched vaginal/rectal swab specimens, using fully automated, real-time polymerase chain reaction (PCR) with fluorogenic detection of the amplified DNA. Xpert GBS LB Assay testing is indicated as an aid in determining GBS colonization status in antepartum women. This assay does not diagnose or monitor treatment for GBS infections. The Cepheid Xpert GBS LB Assay is intended for use in hospital, reference or state laboratory settings. The device is not intended for [id number] use. Royal Oconnor MD LAB - MICRO GENERAL OR DERABLES Final Result [facility] Inf. Diseases Diag. Lab [address] [facility] [place] [address], [facility] [phone] * Pap imaged thin layer screen with HPV - recommended age 30 - 65 (10/05/2022 9:17 AM CDT) Interpretation Negative for Intraepithelial Lesion or Malignancy (NILM) 10/09/2022 1:34 PM CDT SPECIALTY LABS Comment Papanicolaou Test Limitations: Cervical cytology is a screening test with limited sensitivity, and regular screening is critical for cancer prevention. Pap tests are primarily effective for the diagnosis/prevent ion of squamous cell carcinoma, not adenocarcinoma or other cancers. 10/09/2022 1:34 PM CDT [facility] Specimen Adequacy Satisfactory for evaluation, endocervical/mccall sformation zone component absent 10/09/2022 1:34 PM CDT [facility] Clinical Information 10/09/2022 1:34 PM CDT [facility] LMP/Menopause Date 07/25/2022 10/09/2022 1:34 PM CDT [facility] Reflex Testing Yes regardless of result 10/09/2022 1:34 PM CDT [facility] Previous Abnormal? No 10/09/2022 1:34 PM CDT [facility] Performing Labs The technical component of this testing was completed at [facility] 10/09/2022 1:34 PM CDT [facility] Brushing CERVIX UTERI STRUCTURE / Unknown 10/05/2022 9:17 AM CDT 10/05/2022 9:52 AM CDT Flaquito KAUFMAN - BIRA dwyer Result SPECIALTY LABS Specialty Lab [address] [facility], [address] [address] [phone] * HPV High Risk Types DNA Cervical (10/05/2022 9:17 AM CDT) Other HR HPV Negative Negative 10/11/2022 2:57 PM CDT [facility] HPV16 DNA Negative Negative 10/11/2022 2:57 PM CDT [facility] HPV18 DNA Negative Negative 10/11/2022 2:57 PM CDT [facility] FINAL DIAGNOSIS This patient's sample is negative for HPV DNA. This test was developed and its performance characteristics determined by the [facility], Molecular Diagnostics Laboratory. It has not been cleared or approved by the FDA. The laboratory is regulated under CLIA as qualified to perform high-complexity testing. This test is used for clinical purposes. It should not be regarded as investigational or for research. METHODOLOGY: The Kym Marce 4800 system uses automated extraction, simultaneous amplification of HPV (L1 region) and beta-globin, followed by real time detection of fluorescent labeled HPV and beta globin using specific oligonucleotide probes. The test specifically identifies types HPV 16 DNA and HPV 18 DNA while concurrently detecting the rest of the high risk types (31, 33, 35, 39, 45, 51, 52, 56, 58, 59, 66 or 68). COMMENTS: This test is not intended for use as a screening device for woman under age 30 with normal cervical cytology. Results should be correlated with cytologic and histologic findings. Close clinical followup is recommended. 10/11/2022 2:57 PM CDT [facility]ST[facility] Brushing CERVIX UTERI STRUCTURE / Unknown Non-blood Collection / Unknown 10/05/2022 9:17 AM CDT 10/10/2022 8:48 AM CDT Flaquito Zhang MD LAB - BLOOD ORDERABL ES Final Result MOLECULAR DIAGNOSTICS Molecular Diagnostics [address] [facility], [address] [place] [address], [facility] [phone] * Comprehensive metabolic panel (BMP + Alb, Alk Phos, ALT, AST, Total. Bili, TP) (06/14/2021 4:58 PM GATE CUTTER) Sodium 133 133 - 144 mmol/L 06/15/2021 1:12 PM GATE CUTTER [facility] Potassium 4.0 3.4 - 5.3 mmol/L 06/15/2021 1:12 PM GATE CUTTER [facility] Chloride 103 94 - 109 mmol/L 06/15/2021 1:12 PM GATE CUTTER [facility] Carbon Dioxide (CO2) 24 20 - 32 mmol/L 06/15/2021 1:12 PM GATE CUTTER [facility] Anion Gap 6 3 - 14 mmol/L 06/15/2021 1:12 PM GATE CUTTER [facility] Urea Nitrogen 7 7 - 30 mg/dL 06/15/2021 1:12 PM GATE CUTTER [facility] Creatinine 0.59 0.52 - 1.04 mg/dL 06/15/2021 1:12 PM GATE CUTTER [facility] Calcium 9.2 8.5 - 10.1 mg/dL 06/15/2021 1:12 PM GATE CUTTER [facility] Glucose 97 70 - 99 mg/dL 06/15/2021 1:12 PM GATE CUTTER [facility] Alkaline Phosphatase 63 40 - 150 U/L 06/15/2021 1:12 PM GATE CUTTER [facility] AST 8 0 - 45 U/L 06/15/2021 1:12 PM GATE CUTTER [facility] ALT 17 0 - 50 U/L 06/15/2021 1:12 PM GATE CUTTER [facility] Protein Total 7.7 6.8 - 8.8 g/dL 06/15/2021 1:12 PM GATE CUTTER [facility] Albumin 3.8 3.4 - 5.0 g/dL 06/15/2021 1:12 PM GATE CUTTER [facility] Bilirubin Total 0.3 0.2 - 1.3 mg/dL 06/15/2021 1:12 PM GATE CUTTER [facility] GFR Estimate >90 >60 mL/min/1.7 3m2 06/15/2021 1:12 PM GATE CUTTER [facility] Comment:Effective May 252020 eGFRcr in adults is calculated using the 2020 CKD-EPI creatinine equation which includes age and gender (Mars et al., NEJM, DOI: 10.1056/EJUBhp7035444) Blood STRUCTURE OF LEFT UPPER LIMB / Unknown Venipuncture / Unknown 06/14/2021 4:58 PM GATE CUTTER 06/14/2021 4:58 PM GATE CUTTER Royal Oconnor MD LAB - BLOOD ORDERABLES Final Result [facility] Lab [address] Lab (no room number, 1st floor of clinic) [place] [address], [facility] [phone] * Abstract Microalbumin (08/17/2019) Albumin (Urine) MG/SPEC 30 mg/L [facility] Creatinine (Urine) 300 mg/dL [facility] Albumin/Creatin ine Ratio <30 <30 mg/G [facility] 08/17/2019 Narrative [facility] - 08/17/2019 CARE EVERYWHERE [facility] Provider Outside LAB - HIM EXTERNAL RESULT Edite d Result - Final [facility] [address] [place] [address], [facility] [phone] * (ABNORMAL) Lipid Profile (08/17/2019) Cholesterol 218(A) 100 - 199 mg/dL [facility] Triglycerides 90 <150 mg/dL [facility] HDL Cholesterol 63 >40 mg/dL [facility] LDL Cholesterol Calculated 137(A) <=130 mg/dL [facility] Non HDL Cholesterol 155(A) <145 mg/dL [facility] Blood specimen (specimen) 08/17/2019 Narrative [facility] - 08/17/2019 CARE EVERYWHERE [facility] us Provider Outside LAB - BLOOD ORDERABLES Final Re sult [facility] [address] from Last 3 Months or Most Recently Relevant to Health Maintenance Insurance BCBS OUT OF STATE BCBS OUT OF STATE Advance Directives For more information, please contact: [phone] * Full Code (Latest Code Status on File) Date Activated Date Inactivated Comments 04/10/2023 9:50 AM 04/13/2023 9:06 PM All basic and advanced life-sustaining interventions are performed as appropriate Question Answer Comments Code status determined by: Discussion with patie nt/ legal decision maker * Full Code Date Activated Date Inactivated Comments 01/16/2022 12:09 PM 01/18/2022 11:36 PM All basic and advanced life-sustaining interventions are performed as appropriate Question Answer Comments Code status determined by: Discussion with patie nt/ legal decision maker * Full Code Date Activated Date Inactivated Comments 01/14/2022 9:22 PM 01/16/2022 12:09 PM All basic a nd advanced life-sustaining interventions are performed as appropriate Question Answer Comments Code status determined by: Discussion with patie nt/ legal decision maker Care Teams Electronic Game Developer Relationship Specialty Start Date End Date [address] [address] PCP - General 03/22/17 Royal Oconnor MD [address] [place] [address] Assigned OBGYN Provider 10/09/[address] [address] Public [employer] Teacher Dietitian, Registered 10/16/[address] [address] Public School Teacher Dietitian, Registered 11/02/21 Fiona Conrad [address] [place] [id number] Public School Teacher Dietitian, Registered 01/23/23 Atif Garcia MD [address] [facility] [address] [place] [address] montessori preschool teacher 05/01/24 Dina Perez PA-C [address] [place] [address] [phone] Physician Blow Molding Machine Operator Endocrinology, Diabetes, and Metabolism 06/02/24 Tiffani Farmer MD [address] [place] [address] [address] [place], [place] [id number] Assigned Endocrinology Provider 06/15/24
--- OUTSIDE RECORDS SUMMARY | 2024-08-18 20:30 | XMS_ITS | Encounter Summary ---
Author Organization [place] Address [facility]0 [facility] [place] [address] Care Team Providers Care Manager Deli Name Role Phone Radha, [facility] Primary Care Provider Shamar Pacheco MD Unavailable Kellen Duran RD Unavailable [phone] Unavailable Unavailable Fiona Conrad Unavailable [phone] Atif Garcia MD Unavailable [phone] Dina Perez PA-C Unavailable Tiffani Farmer MD Unavailable [phone] Reason for Referral * CV Testing (Routine) - Pending Review Specialty Diagnoses / Procedures Referred By Contac t Referred To Contact Diagnoses Type 2 diabetes mellitus during , antepartum Procedures Echo (TTE) Complete Kenya Keating MD [address] [place] [id number] Phone: tel: fax: Referral ID Status Reason Start Date Expiration Date V isits Requested Visits Authorized [id number] Pending Review 08/17/2024 08/17/2025 1 1 HANDLER * Diagnostic Imaging Ultrasound (Routine) - Pending Review Specialty Diagnoses / Procedures Referred By Contac t Referred To Contact Radiology. Diagnoses Type 2 diabetes mellitus during , antepartum AMA (advanced maternal age) multigravida 35+ Procedures [facility] Kenya Keating MD [address] [place] [address] [place] [address] Phone: tel: fax: Referral ID Status Reason Start Date Expiration Date V isits Requested Visits Authorized [id number] Pending Review 08/17/2024 08/17/2025 1 1 HANDLER Reason for Visit * Reason Comments Ultrasound 2/3 Complete- T2DM, AMA Consult T2DM Genetic Counseling AMA, T2DM * Consultation (Routine: Next available opening) - Pending Review Specialty Diagnoses / Procedures Referred By Contac t Referred To Contact Diagnoses Type 2 diabetes mellitus during , antepartum S/P repeat low transverse AMA (advanced maternal age) multigravida 35+ Roberta Mccarty MD [address] [facility] [address] [address] Phone: tel: fax: Referral ID Status Reason Start Date Expiration Date V isits Requested Visits Authorized [id number] Pending Review 07/16/2024 07/16/2025 1 1 Encounter Details Date Type Department Care Team (Latest Contact Info) Description 08/17/2024 11:45 AM ART HANDLER Office Visit [facility] [place] [address] [facility] [address] [place] [address] Roberta Mccarty MD [address] [address] [place] [address] [place] [phone] Kenya Keating MD [address] [place] [address] [place] [id number] Type 2 diabetes mellitus during , antepartum (Primary Dx); Multigravida of advanced maternal age in first trimester; Modified White class B pregestational diabetes mellitus; Previous delivery, antepartum condition or complication; S/P repeat low transverse Social History Tobacco Use Types Packs/Day Years Used Date Smoking Tobacco: Never Smokeless Tobacco: Never Alcohol Use Standard Drinks/Week Comments Not Currently 0 (1 standard drink = 0.6 oz pur e alcohol) PHQ-2 Answer Date Recorded PHQ-2 Score 0 08/12/2024 [place] Depression Scale Answer Date Recorded Last EPDS [...] on file Legal Sex Female 3:17 AM ART HANDLER Gender Identity Not on file Sexual Orientation Not on file 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 Maternal- Medicine Consultation Holly Oliva : 1990 REFERRAL: Holly Oliva is a 33 year [address] sent by Dr. Pacheco for MFM consultation. HPI: Holly Oliva is a 33 year old at 17w6d by 6w6d US not consistent with LMP here for MFM consultation regarding T2DM. Patient was diagnosed with type 2 diabetes in 2017. She previously followed with Sean for her diabetes care. Prior to the she was on just metformin. Her A1C at the start of was 11% - before this control was somewhat better with A1C typically ranging between 7-8%. She is currently taking Lantus 28u at bedtime and Novolog with meals with carb counting. She has not seen an nuclear plant construction worker recently. She is not currently on low dose aspirin. Of note, her prior was complicated by congenital cataracts which was noted prenatally on ultrasound at around 22 weeks. Her child required surgery. Her oldest child does not have any evidence of cataracts. Mom herself was also born with congenital cataracts. She has not had any genetic testing performed related to this. Additionally, she has a history of two prior deliveries. She is planned for a tertiary repeat delivery in the current . Obstetrics History: OB History Para Term AB Living 5 2 2 0 2 2 SAB IAB Ectopic Multiple Live Births 1 0 0 0 2 # Outcome Date GA Lbr Frank/2nd Weight Sex Type Anes PTL Lv 5 Current 4 Term 04/10/23 37w0d 3.69 kg (8 lb 2.2 oz) F CS-LTranv PARDEEP Name: Marycruz Oliva Apgar1: 8 Apgar5: 9 3 Term 01/16/22 39w2d 07:29 / 02:19 3.63 kg (8 lb) F CS-LTranv EPI N PARDEEP Complications: Failure to Progress in Second Stage Name: Anastasia Apgar1: 9 Apgar5: 9 2 AB 01/2021 5w0d 1 SAB 07/2020 6w0d Gynecologic History: - Denies any history of frequent UTIs, vaginal infections, or STIs Past Medical History: Past Medical History: Diagnosis Date delivery delivered 01/17/2022 Depressive disorder In college, last one yr, denies currently Diabetes mellitus, type 2 (H) 07/2016 Varicella Past Surgical History: Past Surgical History: Procedure Laterality Date SECTION N/A 01/16/2022 Procedure: SECTION; Surgeon: Flaquito Zhang MD; Location: [facility] L+[facility] SECTION N/A 04/10/2023 Procedure: REPEAT SECTION; Surgeon: Shamar Pacheco MD; Location: [facility] L+D DILATION AND CURETTAGE SUCTION, TREAT INCOMPLETE 07/2020 INTRAOCULAR LENS MASTER BIOMETRY FOR COMPUTER GUIDED CATARACT SURGERY 1989 remove cataract, donor cornea attached Current Medications: Prior to Admission medications Medication Sig Last Dose Taking? Auth Provider Make Ready Mechanic End Date blood glucose (NO BRAND SPECIFIED) lancets standard Use to test blood sugar 4 times daily or as directed. Tiffani Farmer MD blood glucose (NO BRAND SPECIFIED) test strip Use to test blood sugar 4 times daily or as directed.Tiffani Farmer MD insulin glargine (LANTUS PEN) 100 UNIT/ML pen Inject 28 Units subcutaneously at bedtime. Titrate asdirected. Uses up to 50 units daily. Tiffani Farmer MD Yes insulin pen needle (31G X 5 MM) 31G X 5 MM miscellaneous Use 5 pen needles daily or as directed. Tiffani Farmer MD NOVOLOG FLEXPEN 100 UNIT/ML soln Take 1 unit for each 10 g of carbohydrates for 1.5 units per for up to 50 units/day three-four times daily and 2 units for priming each time Tiffani Farmer MD Yes Vit-Fe Fumarate-FA ( MULTIVITAMIN W/IRON) 27-0.8 MG tablet Take 1 tablet by mouth daily Reported, Patient Allergies: Bee venom Social History: Denies use of alcohol, drugs or smoking. Family History: Denies history of genetic disorders, preeclampsia, thromboembolic disease, bleeding disorders, intellectual disability Labs: Component Latest Ref Rng 06/01/2024 2:44 PM Estimated Average Glucose <117 mg/dL 269 (H) Hemoglobin A1C 0.0 - 5.6 % 11.0 (H) 06/01/24 Urine Culture Culture <10,000 CFU/mL Mixture of Urogenital Kori ASSESSMENT/PLAN: Holly Oliva is a 33 year old at 17w6d by 6w6d US not consistent with LMP here for MFM consultation regarding T2DM. #Type 2 Diabetes Today we reviewed that is characterized by insulin resistance. Placental hormones increase in the second trimester and insulin resistance is greatest in the third trimester. This often manifests as worsening glycemic control. The overall goal of management of diabetes in is maintenance of euglycemia which minimizes maternal and risks. We discussed that women with diabetes have significantly increased incidence of adverse outcome. The frequency of /, obstetric and maternal outcomes are increased. / complications in women with diabetes include spontaneous miscarriage, stillbirth, congenital malformations, growth abnormalities, respiratory distress, hypoglycemia, and hyperbilirubinemia. Obstetric complications in women with diabetes include increased incidence of preeclampsia, term delivery and polyhydramnios. Associated with macrosomia is an increase in significant maternal lacerations and delivery as well as wound complications. Maternal considerations include increased difficulty in maintaining euglycemia, increased risk of DKA and more frequent hospitalization. Women who are in poor glycemic control have an increased frequency of complications. The incidence of these outcomes is directly related to the hemoglobin A1C (HbA1C) level. Poor gl ycemic control during the period of organogenesis increases the incidence of miscarriage and congenital anomalies, and ongoing poor control increases the risk of stillbirth. Cardiac defects aremost commonly seen as well as renal, central nervous system, spinal and gastrointestinal anomalies. We discussed the importance of good glycemic control throughout the to prevent the above listed complications. In addition, concurrent maternal medical disorders are associated with long-standing diabetes mellitus, especially: thyroid dysfunction, retinopathy, nephropathy, and vascular disease. Low dose aspirin is recommended to decrease risk of hypertensive disorders of . To better understand the risks of undergoing , a baseline assessment of each of these organs isrecommended. #Urinary Tract Dilation (UTD A1) We reviewed that mild urinary tract dilation [...] however, given her low risk cell free fetalDNA result, this finding today is not considered to be associated with aneuploidy. A follow up ultrasound to reevaluate the kidneys is recommended in the third trimester. If this finding is persistent pediatric urology follow-up is indicated. If it has resolved at her subsequent ultrasound then no evaluation is indicated. #Prior with Congenital Cataracts #Maternal Congenital Cataracts A cataract is an opacity of the lens of the eye that causes partial or total visual loss. Cataractsare a common and frequently curable cause of blindness in children. Early detection and prompt intervention are critical for a good visual outcome, particularly in newborns. Approximately one-third of congenital cataracts in children are inherited, one-third are associated with systemic diseases, and one-third are idiopathic or sporadic. #Large for Gestational Age size is additionally measuring ahead of dates. We reviewed dating and agree with established dating. We reviewed that large for gestational age may be related to suboptimally controlled diabetes or could also reflect normal population variation. Recommend serial evaluation of growth. Recommendations: NIPT has resulted low risk. She met with our genetic counselors today to discuss and congenital cataracts. She is notinterested in additional testing at this time. Close follow-up with a chemical educator Continue glucose testing with fasting (goal <95mg/dL) and one hour postprandial (goal <140mg/dL) throughout the Two-hour postprandial levels (goal <120mg/dL) can be checked instead of one hour, but these are often harder to remember to do. Women who are difficult to control may also need pre-prandial, bedtime and/or a 2-3 am glucose check; this is most easily assessed via a continuous glucose sensor Create an action plan for hypoglycemia, which may include glucose tablets, fruit juice or milk, andglucagon Insulin is the recommended therapy for women with diabetes who require pharmacotherapy. Continue totitrate as needed to maintain glucose targets. Low dose aspirin for preeclampsia prophylaxis beginning now Unless there are contraindications, at least 30 minutes of moderate intensity, low fall-risk activity should be encouraged most days of the week. If she experiences hypoglycemia with exercise recommend a snack prior If there is persistent urinary tract dilation in the third trimester, a referral to pediatric urology will be sent. Baseline laboratories Hemoglobin A1C, and every trimester thereafter Thyroid stimulating hormone (TSH) Baseline preeclampsia labs - CBC, AST, ALT, Cr, UPC Baseline EKG Ophthalmologic examination Urine culture surveillance MSAFP should be offered at 15-20 weeks to screen for open neural tube defects Comprehensive ultrasound at 18-20 weeks echocardiogram with Pediatric Cardiology at 22 weeks Monthly ultrasounds for growth monthly starting at 28 weeks gestation. Plan to assess for congenital cataracts at these visits. testing with twice weekly BPP at 32 weeks; if the patient is poorly controlled weekly testing should be initiated at 28 weeks and increased to twice weekly at 32 weeks Delivery She is planned for repeat delivery If well-controlled, delivery at 39w 0d - 39w 6d is recommended For women with poorly controlled diabetes, a delivery before 39 weeks may be indicated, and we can help make recommendations as the continues Maternal glucose should be maintained at 70-110 mg/dL during delivery; this can be done with an insulin drip and requires hourly finger stick assessment in active labor Exclusive should be encouraged in women with DM given significant short-term and long-term benefits to both infant and mother Usually insulin requirements immediately decrease to about one third to one half of the pre-delivery regimen Recommend repeat evaluation of A1c at 6 weeks Recommend healthy lifestyle changes (exercise, optimizing weight, diabetic diet) Thank you for allowing us to participate in the care of your patient. Please do not hesitate to contact us if you have further questions regarding the management of your patient. I have seen and evaluated the patient. I spent a total of 60 minutes on the date of this encounter including preparing to see the patient (reviewing medical records/tests), counseling and discussing the plan of care, documenting the visit in the electronic medical record, and communicating with other health career law clerk and/or care coordination. Kenya Keating MD Maternal Medicine 08/17/2024 11:12 AM HANDLER documented in this encounter Nursing Notes * Carmen Rivera RN - 08/17/2024 11:45 AM CST Patient here for 2/3 Complete/Consult/GC Patient denies pain, contractions, leaking of fluid, or bleeding. Reports blood sugar values fasting <95 and one hr post prandial mostly <140 with some elevations at times. Currently taking 2units per carb sliding scale with meals and 28units HS. Patient denies headache, visual changes, nausea/vomiting, epigastric pain related to preeclampsia. SBAR given to HARMONY GLASS, see their note in Epic. HANDLER documented in this encounter Plan of Treatment Upcoming Encounters Date Type Department Care Team (Late st Contact Info) Description 08/21/2024 10:00 AM ART HANDLER Virtual Visit [facility] [address] [place] [phone] Flor Joseph [address] [place] [id number] 09/08/2024 2:15 PM CDT Appointment [facility] [place] [address] [facility] [address] [place] [phone] Kenya Keating MD [address] [address] [place], [place] [address] 09/08/2024 2:45 PM CDT Office Visit [facility] [address] [facility] [address] [place] [phone] Kenya Keating MD [address] [place] [address] [place], [place] [phone] 09/16/2024 3:30 PM CDT Office Visit [facility] [place] [address] [facility] [address] [place] [phone] Shamar Pacheco MD [address] [place] [address] 09/17/2024 2:30 PM CDT Virtual Visit [facility] [address] [place] [phone] Renée Alanis PA-C [address] [facility] [address] [place] [address] 09/22/2024 2:00 PM CDT Appointment [facility] [address] [place] [phone] Kenya Keating MD [address] [place] [address] [place] [address] 10/13/2024 3:30 PM CDT Office Visit [address] [phone] Shamar Pacheco MD [address] [place] [address] 10/16/2024 2:30 PM CDT Virtual Visit [facility] [address] [phone] Renée Alanis PA-C [address] [place] [phone] 11/10/2024 3:45 PM CDT Office Visit [address] [phone] Shamar Pacheco MD [address] [place] [address] 11/19/2024 2:30 PM CDT Virtual Visit [facility] [address] [phone] Renée Alanis PA-C [address] [place] [phone] 12/17/2024 2:30 PM CDT Virtual Visit [facility] [address] [phone] Renée Alanis PA-C [address] [phone] 01/07/2025 1:30 PM CDT Virtual Visit [facility] [place] [address] [place] [phone] Renée Alanis PA-C [address] [facility] [address] [place] [address] 01/11/2025 7:30 AM CDT Hospital Encounter [facility] [address] [place] [address] Shamar Pacheco MD [address] [place] [address] Modified White class B pregestational diabetes mellitus (Primary Dx); Multigravida of advanced maternal age in first trimester; Previous delivery, antepartum condition or complication 01/11/2025 7:30 AM CDT - 01/11/2025 9:00 AM CDT Surgery [facility] [address] [place] [address] Shamar Pacheco MD [address] [place] [address] REPEAT SECTION Scheduled Orders Name Type Priority Associated Diagnoses Order Schedule [facility] Comprehensive Single Imaging Routine Type 2 diabetes mellitus during , antepartum Expected: 09/07/2024 (Approximate), Expires: 06/16/2025 Echo (TTE) Complete Echocardiography Routine Type 2 diabetes mellitus during , antepartum Expected: 09/14/2024 (Approximate), Expires: 08/17/2025 Scheduled Procedures Name Priority Associated Diagnoses Date/Ti [...] 2 diabetes mellitus during , antepartum- Primary Multigravida of advanced maternal age in first trimester Modified White class B pregestational diabetes mellitus Previous delivery, antepartum condition or complication S/P repeat low transverse delivery, without mention of indication, unspecified as to episode of care Multigravida of advanced maternal age in first [...] Total Score: 1 08/12/19 25 4:09 PM ART HANDLER documented as of this encounter Care Teams Manager Deli Relationship Specialty Start Date End Date [facility], [address] [address] PCP - General 03/22/17 Shamar Pacheco MD [address] [place] [address] Assigned OBGYN Provider 10/09/[address] [id number] Auto Design Detailer Dietitian, Registered 10/16/[address] [address] Auto Design Detailer Dietitian, Registered 11/02/21 Fiona Conrad [address] [place] [address] Auto Design Detailer Dietitian, Registered 01/23/23 Atif Garcia MD [address] [facility] [address] [place] [address] face hardener 05/01/24 Dina Perez PA-C [address] [place], [place] [phone] Physician Hoop Punch And Coiler Operator Endocrinology, Diabetes, and Metabolism 06/02/24 Tiffani Farmer MD [address] [facility] [address] [place], [place] [address] Assigned Endocrinology Provider 06/15/24 documented as of this encounter
--- OUTSIDE RECORDS SUMMARY | 2024-08-18 20:30 | XMS_ITS | Encounter Summary ---
Author Organization [place] Address Critical access hospital0 [facility] [place] [address] Support Name Relationship Address Phone Chris Oliva Personal Relationship Unknown Minoo Posada Personal Relationship [id number] [facility] [place] [address] Care Team Providers Care Assessment Analyst Name Role Phone Clinic, [facility] Primary Care Provider Shamar Pacheco MD Unavailable Kellen Duran RD Unavailable [phone] Unavailable Unavailable Fiona Conrad Unavailable Atif Garcia MD Unavailable [phone] Dina Perez PA-C Unavailable Tiffani Farmer MD Unavailable [phone] Cydney Olivarez Unavailable [phone] Encounter Details Date Type Department Care Team (Late st Contact Info) Description 08/14/2024 [facility] Medical Advice [facility] Care Coordination [facility] [address] [place] [phone] Cydney Olivarez CHW Social History Tobacco Use Types Packs/Day Years Used Date Smoking Tobacco: Never Smokeless Tobacco: Never Alcohol Use Standard Drinks/Week Comments Not Currently 0 (1 standard drink = 0.6 oz pur e alcohol) PHQ-2 Answer Date Recorded PHQ-2 Score 0 08/12/2024 [place] Depression Scale Answer Date Recorded Last EPDS [...] on file Legal Sex 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 Gender Identity Not on file [...] st Contact Info) Description 08/21/2024 10:00 AM EXTRUSION MACHINE OPERATOR [facility] [address] [place] [address] Flor Joseph [address] [place] [address] 09/08/2024 2:15 PM CDT Appointment [facility] [place] [address] [place] [phone] Kenya Keating MD [address] [place] [address] [place] [address] 09/08/2024 2:45 PM CDT Office Visit [facility] [place] [address] [place] [phone] Kenya Keating MD [address] [address] [place], [place] [address] 09/16/2024 3:30 PM CDT Office Visit [facility] [place] [address] [place] [phone] Shamar Pacheco MD [address] [place] [address] 09/17/2024 2:30 PM CDT Virtual Visit [facility] [place] [address] [facility] [address] [place] [phone] Renée Alanis PA-C [address] [place] [address] 09/22/2024 2:00 PM CDT Appointment [facility] [address] [place] [phone] Kenya Keating MD [address] [place] [address] 400 [place] [address] 10/13/2024 3:30 PM CDT Office Visit [address] [phone] Shamar Pacheco MD [address] [place] [address] 10/16/2024 2:30 PM CDT Virtual Visit [facility] [place] [address] [phone] Renée Alanis PA-C [address] [place] [address] 11/10/2024 3:45 PM CDT Office Visit [facility] [address] [facility] [address] [place] [phone] Shamar Pacheco MD [address] [place] [address] 11/19/2024 2:30 PM CDT Virtual Visit [facility] [place] [address] [facility] [address] [place] [phone] Renée Alanis PA-C 420 [facility] [address] [place] [address] 12/17/2024 2:30 PM CDT Virtual Visit [facility] [place] [address] [phone] Renée Alanis PA-C 420 [facility] [address] [place] [address] 01/07/2025 1:30 PM CDT Virtual Visit [facility] [place] [address] [phone] Renée Alanis PA-C [address] [address] 01/11/2025 7:30 AM CDT Hospital Encounter [facility] [address] [place] [address] Shamar Pacheco MD [address] [place] [address] Modified White class B pregestational diabetes mellitus (Primary Dx); Multigravida of advanced maternal age in first trimester; Previous delivery, antepartum condition or complication 01/11/2025 7:30 AM CDT - 01/11/2025 9:00 AM CDT Surgery [facility] [address] [place] [address] Shamar Pacheco MD [address] [place] [address] REPEAT SECTION Scheduled Procedures Name Priority Associated [...] Total Score: 1 08/12/19 25 4:09 PM EXTRUSION MACHINE OPERATOR documented as of this encounter Care Teams Assessment Analyst Relationship Specialty Start Date End Date [facility], [address] [address] PCP - General 03/22/17 Shamar Pacheco MD [address] [place] [address] Assigned OBGYN Provider 10/09/[address] [address] Contact Center Professional Dietitian, Registered 10/16/[address] [address] Contact Center Professional Dietitian, Registered 11/02/21 Fiona Conrad [address] [place] [address] Contact Center Professional Dietitian, Registered 01/23/23 Atif Garcia MD [address] [address] radio time buyer 05/01/24 Dina Perez PA-C [address] [place] [address] Physician Rehab Technician Endocrinology, Diabetes, and Metabolism 06/02/24 Tiffani Farmer MD [address] [place] [address] Assigned Endocrinology Provider 06/15/24 Cydney Olivarez, [facility] Community Health Worker 08/13/2408/14 documented as of this encounter
--- OUTSIDE RECORDS SUMMARY | 2024-08-18 20:30 | XMS_ITS | Encounter Summary ---
Author Organization [place] Address [address] [facility] 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 Name Role Phone [facility], [facility] Primary Care Provider Shamar Pacheco MD Unavailable [phone] Unavailable [phone] Unavailable Unavailable Fiona Conrad Unavailable Atif Garcia MD Unavailable [phone] Dina Perez PA-C Unavailable Tiffani Farmer MD Unavailable [phone] Cydney Olivarez CHLori Unavailable [phone] Reason for Visit * Reason Comments Ultrasound 2/3 Complete- T2DM, AMA Consult T2DM Genetic Counseling T2DM, AMA Encounter Details Date Type Department Care Team (Late st Contact Info) Description 08/13/2024 PRE VISIT [facility] [place] [address] [facility] [address] [place] [address] Carmen Rivera RN Ultrasound (2/3 Complete- T2DM, AMA); Consult (T2DM); Genetic Counseling ( T2DM, AMA) Social History Tobacco Use Types Packs/Day Years Used Date Smoking Tobacco: Never Smokeless Tobacco: Never Alcohol Use Standard Drinks/Week Comments Not Currently 0 (1 standard drink = 0.6 oz pur e alcohol) PHQ-2 Answer Date Recorded PHQ-2 Score 0 08/12/2024 [place] Depression Scale Answer Date Recorded Last EPDS [...] on file Legal Sex Female 3:17 AM CHAINSTITCH HEMMER Gender Identity Not on file Sexual Orientation Not on file 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 office Not on file Not on file Not on file documented as of this encounter Plan of Treatment Upcoming Encounters Date Type Department Care Team (Late st Contact Info) Description 08/21/2024 10:00 AM CHAINSTITCH HEMMER Virtual Visit [facility] Diabetes Education [address] [place] [address] Flor Joseph [address] [place] [address] 09/08/2024 2:15 PM CDT Appointment [facility] Maternal Medicine [facility] [address] [place] [phone] Kenya Keating MD [address] [place] [address] [place], [place] [address] 09/08/2024 2:45 PM CDT Office Visit [facility] Maternal Medicine [facility] [address] [place] [phone] Kenya Keating MD [address] [place] [address] [place], [place] [address] 09/16/2024 3:30 PM CDT Office Visit [facility] [address] [place] [address] [place] [address] [place] [phone] Shamar Pacheco MD [address] [place] [address] 09/17/2024 2:30 PM CDT Virtual Visit [facility] Endocrinology Clinic [place] [address] [facility] [address]rd [place] [phone] Renée Alanis PA-C [address] [place] [phone] 09/22/2024 2:00 PM CDT Appointment [facility] Heart Care [address] [place] [phone] Kenya Keating MD [address] [place] [address] S [facility] [address] [place], [place] [address] 10/13/2024 3:30 PM CDT Office Visit [place] [address] [place] [address] [place] [phone] Shamar Pacheco MD [address] [place] [address] 10/16/2024 2:30 PM CDT Virtual Visit [facility] Endocrinology [address] [phone] Renée Alanis PA-C [address] [address] 11/10/2024 3:45 PM CDT Office Visit [facility] [address] [place] [address] [place] [phone] Shamar Pacheco MD [address] [place] [address] 11/19/2024 2:30 PM CDT Virtual Visit [facility] Endocrinology [address] [phone] Renée Alanis PA-C [address] [address] 12/17/2024 2:30 PM CDT Virtual Visit [facility] Endocrinology [address] [phone] Renée Alanis PA-C [address] [address] 01/07/2025 1:30 PM CDT Virtual Visit [facility] Endocrinology [address] [phone] Renée Alanis PA-C [address] [address] 01/11/2025 7:30 AM CDT Hospital Encounter [facility] [address] [place] [address] Shamar Pacheco MD [address] [place] [address] Modified White class B pregestational diabetes mellitus (Primary Dx); Multigravida of advanced maternal age in first trimester; Previous delivery, antepartum condition or complication 01/11/2025 7:30 AM CDT - 01/11/2025 9:00 AM CDT Surgery [facility] [address] [place] [address] Shamar Pacheco MD [address] [place] [address] REPEAT SECTION Scheduled Procedures Name Priority Associated [...] trimester Previous delivery, antepartum condition or complication Modified White class B pregestational diabetes mellitus- Primary Previous delivery, antepartum condition or complication Multigravida of advanced maternal age in second trimester Multigravida of advanced maternal age in first [...] Total Score: 1 08/12/19 25 4:09 PM CHAINSTITCH HEMMER documented as of this encounter Care Teams Textile Machine Maintenance Mechanic Relationship Specialty Start Date End Date [facility], [facility] [address] [place] [address] PCP - General 03/22/17 Shamar Pacheco MD [address] [place] [address] Assigned OBGYN Provider 10/09/[address] [address] Diazo Technician Dietitian, Registered 10/16/[address] [address] Diazo Technician Dietitian, Registered 11/02/21 Fiona Conrad [address] [place] [address] Diazo Technician Dietitian, Registered 01/23/23 Atif Garcia MD [address] [address] rehabilitation worker 05/01/24 Dina Perez PA-C [address] [place] [address] Physician Jowl Trimmer Endocrinology, Diabetes, and Metabolism 06/02/24 Tiffani Farmer MD [address] [place] [address] [address] [place] [address] Assigned Endocrinology Provider 06/15/24 Cydney Olivarez CHW Community Health Worker 08/13/2408/14 documented as of this encounter
== END 2024-08-18 20:26 | disposition home or self-care (01) ==
LOC: ED 20:24
PROVIDERS: Emergency Provider Emergency Medicine Emergency Medical Services
DX: S09.90XA Unspecified injury of head, initial encounter (principal); Z3A.18 18 weeks gestation of pregnancy; V49.9XXA Car occupant (driver) (passenger) injured in unspecified traffic accident, initial encounter
CPT/HCPCS: 76815; 94761; 99284